=== PATIENT | female | born 1960 | race Caucasian/White ===

== ENCOUNTER 2017-06-12 16:50 | Inpatient (IN) | payer OTHER ==
[2017-06-12] MEDS ORDERED: SODIUM CHLORIDE 1,000 ML IV STA ×3 (17:05→21:13)
--- NOTE | 2017-06-12 17:06 | PDOC ---
Attending Attestation - Resident Resident Name: Tyree Kemp - ED Attending Attestation I have performed the following: I have examined & evaluated the patient, The case was reviewed & discussed with the resident, I agree w/resident's findings & plan, Exceptions are as noted - Physicial Exam PE: GENERAL: Awake, alert, and oriented to person and place. Agitated, delirious. HEAD: No signs of trauma EYES: PERRLA, EOMI, sclera anicteric, conjunctiva clear ENT: Auricles normal inspection, hearing grossly normal, nares patent, oropharynx clear without exudates. Dry mucosa with dried blood around the mouth. NECK: Normal ROM, supple, no lymphadenopathy, JVD, or masses LUNGS: Breath sounds equal, clear to auscultation bilaterally. No wheezes, and no crackles HEART: Regular rate and rhythm, normal S1 and S2, no murmurs, rubs or gallops ABDOMEN: Soft, nontender, normoactive bowel sounds. No guarding, no rebound. No masses EXTREMITIES: Normal range of motion, no edema. No clubbing or cyanosis. No cords, erythema, or tenderness NEUROLOGICAL: Cranial nerves II through XII grossly intact. Normal speech. Moving all extremities. SKIN: Warm, Dry, normal turgor, no rashes or lesions noted. - Medical Decision Making Patient arrives confused, speaking full sentences but not answering questions. On multiple occasions she attempted to interfere with treatment (likely due to delirium), removing O2 mask, monitor and pulse oximeter. Unable to continuously obtain vital signs. At this point, decision was made to intubate for airway protection as well as for her critically ill state. Labs subsequently showed UTI , leukocytosis, acute renal failure. Treating with aggressive hydration, packed cells (for UGIB, visualized on arrival in ED), abx. Will dispo to ICU. <Tara Rodriguez - Last Filed: 06/12/17 19:12> - HPI HPI: 06/12/17 19:51 The patient is a 56 year old female, with a significant past medical history of hypertension, who presents to the emergency department with changes in mental status and lethargy for several days. As per brother, the he has noted the patient has been increasingly lethargic for several days. Today, the brother tried initiating a conversation with the patient, but he reports she was not making any sense and incoherent. Brother reports suggesting the patient get dressed so that he could bring her to the hospital, but patient went to bed. At the time, EMS was activated. When EMS arrived on scene patient was found to be hypotensive(80/50, with HR120) with dried blood surrounding her mouth. Patient is unable to give full history due to clinical condition. Allergies: NKDA Past Surgical History: None reported Social History: Current everyday smoker. No ETOH or recreational drug use. 06/12/17 19:52 - Critical Care Time Total Critical Care Time: 45 Critical Care Statement: The care of this patient involved high complexity decision making to prevent further life threatening deterioration of the patient 's condition and/or to evaluate & treat vital organ system(s) failure or risk of failure. - Medical Decision Making 06/12/17 19:52 Documentation prepared by Efra Kirk, acting as medical biller for Tara Rodriguez MD. <Efra Kirk - Last Filed: 06/12/17 20:03>
[2017-06-12] MEDS ORDERED: ONDANSETRON 4 MG/2 ML VIAL IVPUSH ONE (17:19)
[2017-06-12] MEDS ORDERED: PANTOPRAZOLE SODIUM 40 MG VIAL IVPUSH ONE (17:19)
--- NOTE | 2017-06-12 17:23 | PDOC ---
History of Present Illness - General History Source: Patient, Family Exam Limitations: Clinical Condition - History of Present Illness Initial Comments: 06/12/17 17:40 56F with pmh of HTN presents with hypotension and altered mental status brought by ambulance. Vitals by EMS were 80/50m hr 120. Life partner states that the patient was feeling sick, perhaps more lethargic since but couldn't provide any more information. Patient arrived pale with black blood crusted around the mouth with difficulty talking looking agitated. No reports of the patient ever vomiting. No more history available. 06/12/17 18:51 <Tyree Kemp - Last Filed: 06/12/17 23:45> <Tara Rodriguez - Last Filed: 06/16/17 11:46> - General Stated Complaint: SEPSIS Time Seen by Provider: 06/12/17 16:57 Past History <Tyere Kemp - Last Filed: 06/12/17 23:45> <Tara Rodriguez - Last Filed: 06/16/17 11:46> - Past Medical History Allergies/Adverse Reactions: Allergies Allergy/AdvReac Type Severity Reaction Status Date / Time No Known Allergies Allergy Verified 06/12/17 18:35 Home Medications: Ambulatory Orders Acetazolamide [Diamox -] 250 mg PO BID 06/15/17 Lisinopril/Hydrochlorothiazide [Lisinopril-Hctz 20-25 mg Tab] 20 - 25 mg PO TID 06/15/17 Review of Systems - Review of Systems Able to Perform ROS?: No <Tyree Kemp - Last Filed: 06/12/17 23:45> *Physical Exam - Physical Exam General Appearance: Yes: Severe Distress, Thin HEENT: positive: Other (dark, black blood in nares and mouth) Respiratory/Chest: positive: Respiratory Distress, Rapid RR. negative: Chest Tender Cardiovascular: positive: Regular Rhythm, Tachycardia Gastrointestinal/Abdominal: positive: Soft <Tyree Kemp - Last Filed: 06/12/17 23:45> - Vital Signs Last Vital Signs Temp Pulse Resp BP Pulse Ox 106 H 10 L 101/55 100 06/12/17 19:20 06/12/17 19:20 06/12/17 19:20 06/12/17 19:20 <Tara Rodriguez - Last Filed: 06/16/17 11:46> Procedures - Intubation Time of Intubation: 18:30 Intubation Method: orotracheal Blade used: Mac (4) Tube Size (Fr): 7.0 Medications: Etomidate, Succinylcholine Tube position @ lip (cm): 22 Tube position confirmed by: Direct visualization, CO2 detector, Chest x-ray, Breath sounds Breath Sounds after Intubation: equal Intubation Complications: oral-unsuccessful attempt Post Intubation Xray: Yes <Tara Rodriguez - Last Filed: 06/16/17 11:46> ED Treatment Course - LABORATORY CBC & Chemistry Diagram: 06/12/17 17:37 06/12/17 17:30 <Tyree Kemp - Last Filed: 06/12/17 23:45> - LABORATORY CBC & Chemistry Diagram: 06/16/17 07:45 06/16/17 07:45 - ADDITIONAL ORDERS Additional order review: Laboratory Results 06/12/17 06/12/17 06/12/17 20:24 17:40 17:30 PT with INR INR PTT (Actin FS) Anticoagulation Therapy No Result Required. Puncture Site No Result Required. ABG pH 6.97 L* ABG pCO2 at Pt Temp 20.0 L ABG pO2 at Pt Temp 157.0 H* ABG HCO3 4.4 L* ABG O2 Sat (Measured) 98.2 ABG O2 Content 13.5 L ABG Base Excess -26.1 L* Francois Test No Result Required. VBG pH POC VBG pCO2 POC VBG pO2 Mixed VBG HCO3 O2 Delivery Device No Result Required. Oxygen Flow Rate No Result Required. Vent Mode No Result Required. Vent Rate No Result Required. Mechanical Rate No Result Required. Pressure Support Vent No Result Required. Sodium Potassium Chloride Carbon Dioxide Anion Gap BUN Creatinine Creat Clearance w eGFR Random Glucose Lactic Acid Calcium Total Bilirubin AST ALT Alkaline Phosphatase Creatine Kinase Creatine Kinase Index CK-MB (CK-2) Troponin I Total Protein Albumin Urine Color Urine Appearance Urine pH Ur Specific [place] Urine Protein Urine Glucose (UA) Urine Ketones Urine Blood Urine Nitrite Urine Bilirubin Urine Urobilinogen Ur Leukocyte Esterase Urine WBC (Auto) Urine RBC (Auto) Ur Epithelial Cells Urine Bacteria Hyaline Casts Urine Mucus Urine Yeast Opiates Screen Negative Methadone Screen Negative Barbiturate Screen Negative Phencyclidine Screen Negative Ur Amphetamines Screen Negative MDMA (Ecstasy) Screen Negative Benzodiazepines Screen Negative Cocaine Screen Negative U Marijuana (THC) Screen Negative Blood Type O POSITIVE Antibody Screen Crossmatch 06/12/17 06/12/17 06/12/17 17:30 17:30 17:30 PT with INR INR PTT (Actin FS) Anticoagulation Therapy Puncture Site ABG pH ABG pCO2 at Pt Temp ABG pO2 at Pt Temp ABG HCO3 ABG O2 Sat (Measured) ABG O2 Content ABG Base Excess Francois Test VBG pH 7.02 L* POC VBG pCO2 17.0 L* POC VBG pO2 82.6 H Mixed VBG HCO3 4.2 L* O2 Delivery Device Oxygen Flow Rate Vent Mode Vent Rate Mechanical Rate Pressure Support Vent Sodium Potassium Chloride Carbon Dioxide Anion Gap BUN Creatinine Creat Clearance w eGFR Random Glucose Lactic Acid 1.3 Calcium Total Bilirubin AST ALT Alkaline Phosphatase Creatine Kinase Cancelled Creatine Kinase Index CK-MB (CK-2) Troponin I Cancelled Total Protein Albumin Urine Color Urine Appearance Urine pH Ur Specific [place] Urine Protein Urine Glucose (UA) Urine Ketones Urine Blood Urine Nitrite Urine Bilirubin Urine Urobilinogen Ur Leukocyte Esterase Urine WBC (Auto) Urine RBC (Auto) Ur Epithelial Cells Urine Bacteria Hyaline Casts Urine Mucus Urine Yeast Opiates Screen Methadone Screen Barbiturate Screen Phencyclidine Screen Ur Amphetamines Screen MDMA (Ecstasy) Screen Benzodiazepines Screen Cocaine Screen U Marijuana (THC) Screen Blood Type Antibody Screen Crossmatch 06/12/17 06/12/17 06/12/17 17:30 17:30 17:30 PT with INR 13.80 H INR 1.22 H PTT (Actin FS) 30.2 Anticoagulation Therapy Puncture Site ABG pH ABG pCO2 at Pt Temp ABG pO2 at Pt Temp ABG HCO3 ABG O2 Sat (Measured) ABG O2 Content ABG Base Excess Francois Test VBG pH POC VBG pCO2 POC VBG pO2 Mixed VBG HCO3 O2 Delivery Device Oxygen Flow Rate Vent Mode Vent Rate Mechanical Rate Pressure Support Vent Sodium 154 H Potassium 4.6 Chloride 124 H Carbon Dioxide 4 L Anion Gap 26 H BUN 227 H* Creatinine 13.2 H* Creat Clearance w eGFR 2.93 Random Glucose 151 H Lactic Acid Calcium 8.5 Total Bilirubin 0.2 AST 9 L ALT 11 L Alkaline Phosphatase 104 Creatine Kinase 263 H Creatine Kinase Index 0.7 CK-MB (CK-2) 1.881 Troponin I < 0.02 Total Protein 6.4 Albumin 3.4 Urine Color Holly Urine Appearance Cloudy Urine pH 5.0 Ur Specific [place] 1.020 Urine Protein 3+ H Urine Glucose (UA) 1+ H Urine Ketones Trace H Urine Blood 1+ H Urine Nitrite Negative Urine Bilirubin 2.0 Urine Urobilinogen Negative Ur Leukocyte Esterase 1+ H Urine WBC (Auto) 46 Urine RBC (Auto) 22 Ur Epithelial Cells Few Urine Bacteria Rare Hyaline Casts 17 Urine Mucus Rare Urine Yeast Many Opiates Screen Methadone Screen Barbiturate Screen Phencyclidine Screen Ur Amphetamines Screen MDMA (Ecstasy) Screen Benzodiazepines Screen Cocaine Screen U Marijuana (THC) Screen Blood Type Antibody Screen Crossmatch 06/12/17 16:58 PT with INR INR PTT (Actin FS) Anticoagulation Therapy Puncture Site ABG pH ABG pCO2 at Pt Temp ABG pO2 at Pt Temp ABG HCO3 ABG O2 Sat (Measured) ABG O2 Content ABG Base Excess Francois Test VBG pH POC VBG pCO2 POC VBG pO2 Mixed VBG HCO3 O2 Delivery Device Oxygen Flow Rate Vent Mode Vent Rate Mechanical Rate Pressure Support Vent Sodium Potassium Chloride Carbon Dioxide Anion Gap BUN Creatinine Creat Clearance w eGFR Random Glucose Lactic Acid Calcium Total Bilirubin AST ALT Alkaline Phosphatase Creatine Kinase Creatine Kinase Index CK-MB (CK-2) Troponin I Total Protein Albumin Urine Color Urine Appearance Urine pH Ur Specific [place] Urine Protein Urine Glucose (UA) Urine Ketones Urine Blood Urine Nitrite Urine Bilirubin Urine Urobilinogen Ur Leukocyte Esterase Urine WBC (Auto) Urine RBC (Auto) Ur Epithelial Cells Urine Bacteria Hyaline Casts Urine Mucus Urine Yeast Opiates Screen Methadone Screen Barbiturate Screen Phencyclidine Screen Ur Amphetamines Screen MDMA (Ecstasy) Screen Benzodiazepines Screen Cocaine Screen U Marijuana (THC) Screen Blood Type O POSITIVE Antibody Screen Negative Crossmatch See Detail 06/12/17 17:37 RBC 3.64 MCV 89.5 MCHC 32.2 RDW 15.1 MPV 11.8 H Neutrophils % 83.6 H Lymphocytes % 9.3 Monocytes % 6.4 Eosinophils % 0.0 Basophils % 0.7 - RADIOLOGY Radiology Studies Ordered: Category Date Time Status CHEST X-RAY PORTABLE* [RAD] Stat Radiology 06/12/17 19:46 Taken - Medications Given in the ED: ED Medications Discontinued Medications Generic Name Dose Route Start Last Admin Trade Name Freq PRN Reason Stop Dose Admin Etomidate 20 mg 06/12/17 18:38 06/12/17 18:00 Amidate - IVPUSH 06/12/17 18:39 20 mg NOW ONE Administration Fentanyl 100 mcg 06/12/17 18:11 06/12/17 18:15 Sublimaze Injection - IVPUSH 06/12/17 18:12 100 mcg ONCE ONE Administration Fentanyl 100 mcg 06/12/17 18:18 06/12/17 18:20 Sublimaze Injection - IVPUSH 06/12/17 18:19 100 mcg ONCE ONE Administration Fentanyl 100 mcg 06/12/17 18:38 06/12/17 19:10 Sublimaze Injection - IVPUSH 06/12/17 18:39 100 mcg ONCE ONE Administration Sodium Chloride 1,000 mls @ 1,000 mls/hr 06/12/17 17:05 06/12/17 18:50 Normal Saline - IV 06/12/17 18:04 1,000 mls/hr ASDIR STA Administration Sodium Chloride 1,000 mls @ 1,000 mls/hr 06/12/17 18:25 06/12/17 17:00 Normal Saline - IV 06/12/17 19:24 1,000 mls/hr ASDIR STA Administration Lorazepam 2 mg 06/12/17 18:38 06/12/17 18:20 Ativan Injection - IVPUSH 06/12/17 18:39 2 mg ONCE ONE Administration Pantoprazole Sodium 40 mg 06/12/17 17:19 06/12/17 18:00 Protonix Iv IVPUSH 06/12/17 17:20 40 mg ONCE ONE Administration <Tara Rodriguez - Last Filed: 06/16/17 11:46> Medical Decision Making - Critical Care Time Total Critical Care Time (minutes): 30 Critical Care Statement: The care of this patient involved high complexity decision making to prevent further life threatening deterioration of the patient 's condition and/or to evaluate & treat vital organ system(s) failure or risk of failure. - Medical Decision Making 06/12/17 19:17 56F with likely GI bleed presenting hypotensive saturating in the high 70's, agitated. The decision was made to intubated the patient who improving her sats even though a ventimask was placed. Ordered one unit of packed RBC's Patient to be admitted to ICU Waiting for ICU to call back. 06/12/17 21:06 Patient admitted to ICU under attending Dr. Schmitz, hospitalist. Ph 6.9 pushed sodium bicarb x2 increased rate to 22 <Tyree Kemp - Last Filed: 06/12/17 23:45> - Medical Decision Making Intubation note: Resident attempted with DL, difficulty visualizing the airway. At this time I took over, was able to visualize, but there was blood in the oropharynx and black discoloration of the entire oropharynx (consistent with material found on the mouth). Bougie was used for assistance, then first a 7.5 tube was passed over it, difficult to pass, changed to 7.0 ETT. Balloon was inflated and tube secured. <Tara Rodriguez - Last Filed: 06/16/17 11:46> *DC/Admit/Observation/Transfer - Discharge Dispostion Admit: Yes <Tyree Kemp - Last Filed: 06/12/17 23:45> - Discharge Dispostion Admit: Yes <Tara Rodriguez - Last Filed: 06/16/17 11:46> Diagnosis at time of Disposition: Renal failure Qualifiers: Renal failure chronicity: acute Acute renal failure type: unspecified Qualified Code(s): N17.9 - Acute kidney failure, unspecified GI bleed Qualifiers: GI bleed type/associated pathology: unspecified gastrointestinal hemorrhage type Qualified Code(s): K92.2 - Gastrointestinal hemorrhage, unspecified UTI (urinary tract infection) Qualifiers: Urinary tract infection type: site unspecified Hematuria presence: without hematuria Qualified Code(s): N39.0 - Urinary tract infection, site not specified Sepsis Qualifiers: Sepsis type: sepsis due to unspecified organism Qualified Code(s): A41.9 - Sepsis, unspecified organism - Discharge Dispostion Condition at time of disposition: Critical
[2017-06-12 17:42] LABS: VENOUS PH 7.02 (7.32-7.42)
[2017-06-12 17:43] LABS: VENOUS PO2 82.6 mmHg (28-48)
[2017-06-12 17:46] LABS: BASO % 0.7 % (0-2.0); HEMATOCRIT 32.6 % (32.4-45.2); HEMOGLOBIN 10.5 GM/dL (10.7-15.3); LYMPH % 9.3 % (8-40); MCH 28.8 pg (25.7-33.7); MCHC 32.2 g/dl (32.0-36.0); MEAN CELL VOLUME 89.5 fl (80-96); MEAN PLT VOLUME 11.8 fl (7.5-11.1); MONO % 6.4 % (3.8-10.2); NEUT % 83.6 % (42.8-82.8); PLATELET COUNT 192 K/MM3 (134-434); RBC 3.64 M/mm3 (3.60-5.2); RDW 15.1 % (11.6-15.6)
[2017-06-12 17:53] LABS: URINE APPEARANCE CLOUDY; URINE BLOOD 1+ (NEGATIVE); URINE COLOR AMBER; URINE GLUCOSE (UA) 1+ (NEGATIVE); URINE KETONE TRACE (NEGATIVE); URINE NITRITE NEGATIVE (NEGATIVE); URINE UROBILINOGEN NEGATIVE mg/dL (0.2-1.0)
[2017-06-12 17:57] LABS: URINE LEUK ESTERASE 1+ (NEGATIVE); URINE PROTEIN 3+ (NEGATIVE)
[2017-06-12 17:58] LABS: EPI CELLS FEW /HPF (FEW); URINE BACTERIA RARE /hpf (NONE SEEN); URINE HYALINE CAST 17 /lpf; URINE MUCUS RARE; YEAST MANY
[2017-06-12] MEDS ORDERED: RAPID SEQUENCE INTUBATION KIT NR ONE (17:58)
[2017-06-12 18:03] LABS: COCAINE, UR NEGATIVE ng/ml (CUTOFF=300); METHADONE, UR NEGATIVE ng/ml (CUTOFF=300); OPIATES, URI NEGATIVE ng/ml (CUTOFF=300); PHENCYCLIDINE,URINE NEGATIVE ng/ml (CUTOFF=25); URINE AMPHETAMINES NEGATIVE ng/ml (CUTOFF=500); URINE BARBITURATES NEGATIVE ng/ml (CUTOFF=200); URINE BENZODIAZEPINES NEGATIVE ng/ml (CUTOFF=200)
[2017-06-12] MEDS ORDERED: fentaNYL CITRATE 250 MCG/5 ML VIAL IVPUSH ONE (18:11)
[2017-06-12 18:20] LABS: ALBUMIN 3.4 g/dl (3.4-5.0); BILIRUBIN,TOTAL 0.2 mg/dL (0.2-1.0); CALCIUM 8.5 mg/dL (8.5-10.1); CHLORIDE 124 mmol/L (98-107); GLUCOSE,RANDOM 151 mg/dL (74-106); POTASSIUM 4.6 mmol/L (3.5-5.1); SGOT/AST 9 U/L (15-37); SGPT/ALT 11 U/L (12-78); SODIUM 154 mmol/L (136-145); TOT PROT 6.4 g/dl (6.4-8.2)
[2017-06-12 18:21] LABS: ALK PHOS 104 U/L (45-117)
[2017-06-12 18:24] LABS: INR 1.22 (0.82-1.09); PROTHROMBIN TIME (PATIENT) 13.8 SEC (9.98-11.88)
[2017-06-12 18:27] LABS: ACTIVATED PTT 30.2 SECONDS (26.9-34.4)
[2017-06-12] MEDS ORDERED: FENTANYL INJECTION 500 MCG in DEXTROSE 5%-WATER - 90 ML IVPB SCH ×2 (18:30→18:45)
[2017-06-12] MEDS ORDERED: ETOMIDATE 40 MG/20 ML VIAL IVPUSH ONE (18:38)
[2017-06-12] MEDS ORDERED: SUCCINYLCHOLINE CHLORIDE 200 MG/10 ML VIAL IVPUSH ONE (18:38)
[2017-06-12] MEDS ORDERED: PIPERACILLIN/TAZOB 3.375 GM 50 ML IVPB ONE (18:39)
[2017-06-12] MEDS ORDERED: VANCOMYCIN 1,000 MG in DEXTROSE 5%-WATER - 250 ML IVPB ONE (18:40)
[2017-06-12 18:41] LABS: ANION GAP 26 (8-16); CO2 4 mmol/L (21-32)
[2017-06-12] MEDS ORDERED: PANTOPRAZOLE SODIUM 40 MG VIAL ONE (18:42)
[2017-06-12 18:43] LABS: BLOOD UREA NITROGEN 227 mg/dL (7-18); CREATININE 13.2 mg/dL (0.55-1.02)
[2017-06-12 18:52] VITALS: BMI 32.3
[2017-06-12] MEDS: MIDAZOLAM 100 MG in SODIUM CHLORIDE 100 ML IVPB SCH (19:20)
[2017-06-12 20:38] LABS: ARTERIAL BLD GAS O2 SATURATION 98.2 % (90-98.9); ARTERIAL BLOOD GAS BASE EXCESS -26.1 meq/l (-2-2)
[2017-06-12 20:42] LABS: ARTERIAL BLOOD GAS pH 6.97 (7.35-7.45)
[2017-06-12] MEDS ORDERED: SODIUM BICARBONATE 4.2% 5 MEQ/10 ML DISP.SYRIN IVPUSH ONE ×2 (20:48→20:49)
[2017-06-12] MEDS ORDERED: SODIUM BICARBONATE 8.4% 50 MEQ/50 ML DISP.SYRIN IVPUSH ONE (20:50)
[2017-06-12] MEDS: PANTOPRAZOLE SODIUM 80 MG in SODIUM CHLORIDE 100 ML IVPB SCH (21:38)
--- NOTE | 2017-06-12 22:11 | HP ---
CHIEF COMPLAINT: AMS PCP: Dr. Petty in [place] Informant: Brother HISTORY OF PRESENT ILLNESS: 56yo female with PMH of HTN and current 1ppd smoker who was BIBEMS due to increasing AMS since Wednesday. Patient last spoke to family on Wednesday. At that time it was reported that she "sounded like crap", however no further elaboration as to how could be elicited during the interview. Pt is normally very active on facebook and texting, but had not replied to anyone's messages/ calls/texts since Wednesday. This unusual behaviour prompted the brother to check on the patient. On arrival to the home the patient was found to be altered and 911 was called. Patient lives with partner of 4 years; however, he is unknowledgeable about her medical history. 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 On arrival to the ED she was noted to have dried blood around her mouth. VS: afebrile, tachy to 120's, RR 20, BP 80s/40s. Patient was hypoxic with SpO2 in 70s and agitated. She was intubated successfully, and noted to have blood in her esophagus. Initial labs were notable for leukocytosis of 19, Hgb 10.5, Na 154, BUN/Cr 227/ 13, HCO3 4, AG 25 with nml Lactate and ABG pH 6.97. UA with pyuria and trace ketones. Patient was given 1U PRBC and protonix gtt for suspected UGIB. Received 3L of NS. Head, Abd/pelvis CT were done and pt was transferred to ICU for further management. PAST MEDICAL HISTORY: obtain collateral from PCP PAST SURGICAL HISTORY: unknown Social History: Smokinppd for "long time" Alcohol: yes Drugs: unknown Family History: non-contributory Allergies: NKDA HOME MEDICATIONS: unknown REVIEW OF SYSTEMS: unable to obtain PHYSICAL EXAMINATION Vital Signs - 24 hr 06/12/17 06/12/17 06/12/17 17:00 18:18 18:22 Pulse Rate 130 H Pulse Rate [ 121 H Apical] Respiratory 26 H 16 19 Rate Blood Pressure 128/114 Blood Pressure 96/58 [Right Arm] O2 Sat by Pulse 88 L 94 L Oximetry (%) 06/12/17 06/12/17 06/12/17 19:20 21:40 22:02 Pulse Rate 106 H Pulse Rate [ 106 H Apical] Respiratory 10 L 14 22 Rate Blood Pressure 101/55 Blood Pressure 119/65 [Right Arm] O2 Sat by Pulse 100 100 Oximetry (%) GENERAL: intubated, sedated EYES: sclera anicteric, conjunctiva clear NECK: no JVD LUNGS: mechanical breath sounds, no rales/wheezes appreciated HEART: rrr, normal s1/s2, no m/r/g ABDOMEN: soft, ntnd, normoactive BS LOWER EXTREMITIES: 2+ DP and PT pulses, wwp, no edema CBC, BMP 06/12/17 17:37 06/12/17 17:30 Hepatic Panel Total Bilirubin 0.2 mg/dL (0.2-1.0) 06/12/17 17:30 AST 9 U/L (15-37) L 06/12/17 17:30 ALT 11 U/L (12-78) L 06/12/17 17:30 Alkaline Phosphatase 104 U/L (45-117) 06/12/17 17:30 Albumin 3.4 g/dl (3.4-5.0) 06/12/17 17:30 ABG Results ABG pH 6.97 (7.35-7.45) L* 06/12/17 20:24 ABG pCO2 at Pt Temp 20.0 mmHg (35-45) L 06/12/17 20:24 ABG pO2 at Pt Temp 157.0 mmHg (80-100) H* 06/12/17 20:24 ABG HCO3 4.4 meq/L (22-26) L* 06/12/17 20:24 ABG O2 Sat (Measured) 98.2 % (90-98.9) 06/12/17 20:24 ABG O2 Content 13.5 % vol (15-22) L 06/12/17 20:24 ABG Base Excess -26.1 meq/l (-2-2) L* 06/12/17 20:[address] - no e/o intracranial hemorrhage or acute pathology CT A/P - (preliminary read) - kidneys without acute pathology, L 3.3cm adenoma Active Medications Chlorhexidine Gluconate (Hibiclens For Decolonization -) 1 applic TP HS JAVI Last Admin: 06/13/17 00:13 Dose: 1 applic Clotrimazole (Lotrimin 1% Cream -) 1 applic TP BID JAVI Last Admin: 06/13/17 01:29 Dose: 1 applic Midazolam HCl 100 mg/ Sodium (Chloride) 100 mls @ 1 mls/hr IVPB TITR JAVI; 1 MG/ HR PRN Reason: Protocol Last Titration: 06/12/17 21:39 Dose: 5 mg/hr, 5 mls/hr Fentanyl 500 mcg/ Sodium (Chloride) 100 mls @ 20 mls/hr IVPB TITR JAVI; 100 MCG/ HR PRN Reason: Protocol Last Admin: 06/13/17 06:52 Dose: 20 mls/hr CEFTRIAXONE 1 G/50 ML PREMIX (Ceftriaxone 1 Gm-D5w Bag) 50 mls @ 100 mls/hr IVPB DAILY JAVI Pantoprazole Sodium 160 mg/ (Dextrose) 290 mls @ 14.5 mls/hr IVPB Q20H JAVI Mupirocin (Bactroban Ointment (For Decolonization) -) 1 applic NS BID JAVI Stop: 06/17/17 21:59 Last Admin: 06/13/17 00:13 Dose: 1 applic ASSESSMENT/PLAN: 56yo woman with unknown medical history except for active smoking and HTN who BIBEMS for 3-4 days of AMS and found to have ARF with profound uremia and HAGMA of unclear etiology. #ARF of unclear etiology -Renal consult for emergent dialysis tonight due to uremic encephalopathy and HAGMA; planning for session tomorrow as well -f/u urine studies -ott, strict I&Os, daily weights #HAGMA -serum osm to calculate osmolar gap -continue bicarb gtt -salicylate, acetaminophen, ethylene glycol, methyl alcohol levels to r/o possible ingestion cause #AMS likely from uremic encephalopathy, Head CT negative, Utox neg -RPR, B12, EtOH #acute hypoxemic respiratory failure -vent settings per ICU team -repeat ABG #possible UGIB, s/p 1U PRBCs, suspect exacerbated by uremia -GI consult -PPI gtt for now -CBC Q6H #sepsis (tachycardia, hypotension, WBC 19) 2/2 UTI Received 1xdose Vanc/Zosyn -f/u urine and blood cultures -Ceftriaxone 1gm daily #3.3cm L adrenal adenoma - notify patient, unlikely to be functional, but reassess when patient stabilized #FEN: IVF / daily CMPs / NPO #PPX -DVT SCD's (A/C c/i) -GI - on PPI gtt #Dispo: ICU FULL code d/w Dr. Ainsley Buck MD PGY1 - Internal Medicine Visit type - Emergency Visit Emergency Visit: Yes ED Registration Date: 06/12/17 Care time: The patient presented to the Emergency Department on the above date and was hospitalized for further evaluation of their emergent condition. - New Patient This patient is new to me today: Yes Date on this admission: 06/13/17 - Critical Care Critical Care patient: Yes Total Critical Care Time (in minutes): 60 Critical Care Statement: The care of this patient involved high complexity decision making to prevent further life threatening deterioration of the patient 's condition and/or to evaluate & treat vital organ system(s) failure or risk of failure.
--- NOTE | 2017-06-12 22:20 | CONSULT ---
Consult - text type - Consultation Consultation Note: PULM/CCM Pt seen and examined in ICU CC: AMS, acute renal failure HPI: Briefly Ms Quinn is a 56 y/o woman with PMHX only notable for HTN who presents to ED today with AMS x 3-4days. Per her family and significant other pt has been increasingly lethargic and altered over last week. This morning she was so altered that family called 911. Pt was brought to ED without incident. In ED pt was afebrile, tachy to 120, RR 20, BP 80/40s. She had dried blood in her mouth. She was hypoxic with SPO2 in 70s, she was intubated without incident. Labs were notable for WBC 19, H/h 10/32, Na 154, BUN/Cr 13/227 with Hco3 of 4. Her pH was 6.9 on abg. AG was 26 but lactate was < 2, BGL was 150 w/ on trace ketones in urine. CK was only slightly elevated 260. Emmanuel was placed with small amount of UOP. UA was dirty with 46 wbc, 22 RBC, + LE. Pt appeared clinically dry, 2L on fluid given. Concern for UGIB prompted 1PRBC to be given and PPI gtt was started. CT head, A/P done, reads pending. There had been no reported LOC, Cxpn, SOB, falls, new medications, does not take metformin,, no reported high use of nsaids, no illicits. Started making urine with volume resuscitation. PHMX: HTN PSX Unk Family Hx: Unk Smoking History Smoking history Current every day smoker Aproximately how many 20 cigarettes per day Alcohol/Substance Use Hx Alcohol Use Yes No Home meds Active Medications Chlorhexidine Gluconate (Hibiclens For Decolonization -) 1 applic TP HS JAVI Pantoprazole Sodium 80 mg/ (Sodium Chloride) 100 mls @ 10 mls/hr IVPB Q10H JAVI PRN Reason: 8 MG/HR Last Admin: 06/12/17 21:38 Dose: 10 mls/hr Midazolam HCl 100 mg/ Sodium (Chloride) 100 mls @ 1 mls/hr IVPB TITR JAVI; 1 MG/ HR PRN Reason: Protocol Last Titration: 06/12/17 21:39 Dose: 5 mg/hr, 5 mls/hr Fentanyl 500 mcg/ Dextrose 100 mls @ 0 mls/hr IVPB TITR JAVI; 0 MCG/HR PRN Reason: Protocol Last Admin: 06/12/17 19:20 Dose: 10 mls/hr Sodium Bicarbonate 150 meq/ (Dextrose) 1,150 mls @ 125 mls/hr IV ONCE ONE Stop: 06/13/17 08:22 Mupirocin (Bactroban Ointment (For Decolonization) -) 1 applic NS BID JAVI Stop: 06/17/17 21:59 ABG Results ABG pH 6.97 (7.35-7.45) L* 06/12/17 20:24 ABG pCO2 at Pt Temp 20.0 mmHg (35-45) L 06/12/17 20:24 ABG pO2 at Pt Temp 157.0 mmHg (80-100) H* 06/12/17 20:24 ABG HCO3 4.4 meq/L (22-26) L* 06/12/17 20:24 ABG O2 Sat (Measured) 98.2 % (90-98.9) 06/12/17 20:24 ABG O2 Content 13.5 % vol (15-22) L 06/12/17 20:24 ABG Base Excess -26.1 meq/l (-2-2) L* 06/12/17 20:24 CBCD WBC 19.0 K/mm3 (4.0-10.0) H 06/12/17 17:37 RBC 3.64 M/mm3 (3.60-5.2) 06/12/17 17:37 Hgb 10.5 GM/dL (10.7-15.3) L 06/12/17 17:37 Hct 32.6 % (32.4-45.2) 06/12/17 17:37 MCV 89.5 fl (80-96) 06/12/17 17:37 MCHC 32.2 g/dl (32.0-36.0) 06/12/17 17:37 RDW 15.1 % (11.6-15.6) 06/12/17 17:37 Plt Count 192 K/MM3 (134-434) 06/12/17 17:37 MPV 11.8 fl (7.5-11.1) H 06/12/17 17:37 CMP Sodium 154 mmol/L (136-145) H 06/12/17 17:30 Potassium 4.6 mmol/L (3.5-5.1) 06/12/17 17:30 Chloride 124 mmol/L (98-107) H 06/12/17 17:30 Carbon Dioxide 4 mmol/L (21-32) L 06/12/17 17:30 Anion Gap 26 (8-16) H 06/12/17 17:30 BUN 227 mg/dL (7-18) H* 06/12/17 17:30 Creatinine 13.2 mg/dL (0.55-1.02) H* 06/12/17 17:30 Creat Clearance w eGFR 2.93 (>60) 06/12/17 17:30 Random Glucose 151 mg/dL (74-106) H 06/12/17 17:30 Calcium 8.5 mg/dL (8.5-10.1) 06/12/17 17:30 Total Bilirubin 0.2 mg/dL (0.2-1.0) 06/12/17 17:30 AST 9 U/L (15-37) L 06/12/17 17:30 ALT 11 U/L (12-78) L 06/12/17 17:30 Alkaline Phosphatase 104 U/L (45-117) 06/12/17 17:30 Total Protein 6.4 g/dl (6.4-8.2) 06/12/17 17:30 Albumin 3.4 g/dl (3.4-5.0) 06/12/17 17:30 CARDIAC ENZYMES Creatine Kinase 263 IU/L (26-192) H 06/12/17 17:30 Troponin I < 0.02 ng/ml (0.00-0.05) 06/12/17 17:30 Urine Test Results Urine Color Holly 06/12/17 17:30 Urine Appearance Cloudy 06/12/17 17:30 Urine pH 5.0 (5.0-8.0) 06/12/17 17:30 Ur Specific Morning Sun 1.020 (1.001-1.035) 06/12/17 17:30 Urine Protein 3+ (NEGATIVE) H 06/12/17 17:30 Urine Glucose (UA) 1+ (NEGATIVE) H 06/12/17 17:30 Urine Ketones Trace (NEGATIVE) H 06/12/17 17: Urine Blood 1+ (NEGATIVE) H 06/12/17 17:30 Urine Nitrite Negative (NEGATIVE) 06/12/17 17:30 Urine Bilirubin 2.0 (NEGATIVE) 06/12/17 17:30 Ur Leukocyte Esterase 1+ (NEGATIVE) H 06/12/17 17:30 Ur Epithelial Cells Few /HPF (FEW) 06/12/17 17:30 Urine Bacteria Rare /hpf (NONE SEEN) 06/12/17 17:30 Urine Mucus Rare 06/12/17 17:[address] head: pending read, no obvious bleed or large infarct to this viewer Chest Xray: no infiltrate PE: Gen: well nourished woman, intubated sedated HEENT: PERRL [id number], slightly injected sclera bilaterally PULM: clear anterior, no wheezes CV;tachy, no m/r/g appreciated ABD: soft, NT, ND, +S EXT: 2+ throughout, no edema, no clubbing Derm: no rash. Neuro: agitated, PUGA x 4 equally,+ myoclonus A/ 56 y/o woman without significant pmhx presented with AMS, acute renal failure c/b uremic encephalopathy and profound acidosis P/ -Renal consult: HD tonight, catheter placed, Nurse enroute -check serum osm, urine osm, salyicilate, tylenol, TSH, DEANDRE, DsDNA, complements -urine lytes - f/u CThead, AP reads -ceftriaxone should be fine for UTI, start tomorrow (received Vanco/PT) -serial CBC, cont PPI gtt, if no further evidence of blood loss would transition to daily PPI -cont D5 1/2with 150meq Sodium Bicarb. -f/u cxls -cont vent support, no gradient on most recent ABG, do no suspect PE or acute lung injury. Wean to extubation -SCD, PPI Neo Peterson ACNP [id number] 35min CCT
[2017-06-12] MEDS ORDERED: SODIUM BICARBONATE 8.4% 50 MEQ/50 ML VIAL ONE (23:10)
[2017-06-12] MEDS ORDERED: DEXTROSE 5%-WATER - 1,000 ML with SODIUM BICARBONATE 8.4% - 150 MEQ IV ONE ×2 (23:11→23:17)
--- NOTE | 2017-06-12 23:20 | CON.NEP ---
Consult Consult Specialty:: Nephrology Referred by:: Dr. Buck Reason for Consultation:: Acute Renal Failure - History of Present Illness Chief Complaint: AMS History of Present Illness: This is a 56 year old woman with PMhx of Hypertension who presented from home with AMS. Pt was found lethargic by her brother who called EMS. He reports that she has been feeling unwell for about 3-4 days. They are unsure of any hx of CKD. No hx of NSIADs. NO hx of ingestions. No hx of kidney stones. No hx of contrast exposure. - History Source History Provided By: Patient Limitations to Obtaining History: No Limitations - Alcohol/Substance Use Hx Alcohol Use: Yes - Smoking History Smoking history: Current every day smoker Aproximately how many cigarettes per day: 20 Home Medications - Allergies Allergies/Adverse Reactions: Allergies Allergy/AdvReac Type Severity Reaction Status Date / Time No Known Allergies Allergy Verified 06/12/17 18:35 Family Disease History - Family Disease History Family History: Unable to Obtain Review of Systems Unable to obtain ROS, reason: clinical status Nephrology Consult - Height Height: 5 ft 6 in - Weight Weight: 90.718 kg - BMI Body Mass Index (BMI): 32.3 - Lab Results CBC,BMP: CBC, BMP 06/12/17 17:37 06/12/17 17:30 Anion Gap: Anion Gap Anion Gap 26 (8-16) H 06/12/17 17:30 - Imaging Chest X-ray: Report Reviewed Cat Scan: Report Reviewed - Physical Examination Vital Signs: Vital Signs Temperature Pulse Rate 106 H 06/12/17 21:40 Respiratory Rate 22 06/12/17 22:02 Blood Pressure 119/65 06/12/17 21:40 O2 Sat by Pulse Oximetry (%) 100 06/12/17 21:40 Constitutional: Yes: No Distress, Other (intubated on vent) HENT: Yes: Atraumatic Neck: Yes: Supple Cardiovascular: Yes: Regular Rate and Rhythm. No: Murmur, Rub Respiratory: Yes: Regular, Diminished. No: Rales, Rhonchi Gastrointestinal: Yes: Normal Bowel Sounds, Soft Renal/: Yes: Emmanuel Present. No: Anuria, Bladder Distention Edema: No Neurological: Yes: Unresponsive. No: Alert, Oriented Assessment/Plan 56 year old woman with PMhx of Hypertension who presented from home with AMS and found to have renal failure and metabolic acidosis. #Acute Renal Failure etiology uncertain at this time pt warrants emergent dialysis given overt uremia and metabolic acidosis will plan for 2.5 hour session today followed by another in 12-16 hours Check Urine studies CT of the kidneys show no obstruction dose all meds for CrCl less then 10 check DEANDRE, ANCA, Hepatitis, CH50 in AM #Anion gap metabolic acidosis likely from renal failure Lactic acid is normal check serum OSM to determine osmolar gap check [place] levels and acetaminophen levels. continue bicarb gtt at 125cc per hour with goal ph > 7.2 #Hypernatremia will use high Na bath with HD to avoid too rapid a correction #Leukocytosis/Sepsis abx as per primary team Thank you Will follow Bill Oliveros DO
[2017-06-13] MEDS: MUPIROCIN 2% TOPICAL OINTMENT FOR DECOLONIZATION NS SCH ×3 (00:13→22:02)
[2017-06-13] MEDS: CHLORHEXIDINE GLUCONATE 4% CLEANSER FOR DECOLONIZATION TP SCH ×2 (00:13→22:02)
[2017-06-13 00:18] LABS: ALLENS TEST POSITIVE
[2017-06-13 00:20] LABS: ARTERIAL BLOOD GAS PCO2 17.1 mmHg (35-45); ARTERIAL BLOOD GAS pH 7.19 (7.35-7.45)
[2017-06-13 00:21] LABS: ARTERIAL BLD GAS O2 SATURATION 99.8 % (90-98.9); ARTERIAL BLOOD GAS BASE EXCESS -20.6 meq/l (-2-2)
[2017-06-13 00:27] LABS: HEMATOCRIT 30.2 % (32.4-45.2); MCH 29.1 pg (25.7-33.7); MCHC 33.1 g/dl (32.0-36.0); MEAN CELL VOLUME 87.9 fl (80-96); MEAN PLT VOLUME 12.2 fl (7.5-11.1); PLATELET COUNT 144 K/MM3 (134-434); RBC 3.43 M/mm3 (3.60-5.2); RDW 14.4 % (11.6-15.6); WHITE BLOOD COUNT 19.4 K/mm3 (4.0-10.0)
--- NOTE | 2017-06-13 00:34 | PROC ---
Central Line Insertion Indication: Other (Hemodialysis) Risks and Benefits Explained: Yes Consent on Chart: Yes Central Line: Dialysis Cath, Tri Lumen Anesthesia: 1% Lidocaine Sterile Technique: Yes Ultrasound Guided Assistance: Yes Position: Right Internal Jugular Post Insertion: Yes: Bilateral Breath Sounds, Chest X-Ray Ordered Sterile Dressing Applied: Yes (With Biopatch)
[2017-06-13 00:51] LABS: ANION GAP 22 (8-16); CALCIUM 7.8 mg/dL (8.5-10.1); CHLORIDE 129 mmol/L (98-107); CO2 7 mmol/L (21-32); GLUCOSE,RANDOM 131 mg/dL (74-106); POTASSIUM 3.7 mmol/L (3.5-5.1); SODIUM 158 mmol/L (136-145)
[2017-06-13 00:52] LABS: OSMOLALITY,URINE 409 mosm/kg (300-900)
[2017-06-13 00:59] LABS: BLOOD UREA NITROGEN 205 mg/dL (7-18)
[2017-06-13 01:00] LABS: CREATININE 10.1 mg/dL (0.55-1.02)
[2017-06-13] MEDS ORDERED: fentaNYL CITRATE 250 MCG/5 ML VIAL ONE ×2 (01:09→06:44)
[2017-06-13] MEDS ORDERED: FENTANYL INJECTION 500 MCG in SODIUM CHLORIDE 90 ML IVPB SCH (01:15)
--- NOTE | 2017-06-13 01:25 | PN ---
Teaching Attending Note Name of Resident: Dana Buck ATTENDING PHYSICIAN STATEMENT I saw and evaluated the patient. Chart, data, imaging reviewed . I reviewed the resident's note and discussed the case with the resident. I agree with the resident's findings and plan as documented. SUBJECTIVE: 56 year old woman with PMhx of Hypertension who presented from home with AMS, found to be lethargic by her brother who called EMS. Family members denied any significant NSAID use, known toxin ingestions, underlying renal disease. Patient was previously at her baseline state of health. She was found to have altered mental status and respiratory distress with desaturation upon arrival to ER and was intubated upon arrival. Head CT wnl. Found to have 3.3 cm mass on left adrenal gland suspected to be an adenoma. Nephrology second chef was contacted and physician came to hospital. OBJECTIVE: Last Vital Signs Temp Pulse Resp BP Pulse Ox 98.7 F 103 H 24 123/64 100 06/13/17 00:00 06/13/17 00:00 06/13/17 00:07 06/13/17 00:00 06/12/17 23:00 general- intubated, sedated, unresponsive heent -at, nc sclera nonicteric and no injection seen, ET tube neck -no JVD or neck masses cv s1+s2+ RRR chest CTA b/l abdomen -soft, nt, no masses palpated skin- no rashes seen msk- no joint swellign noted Abnormal Lab Results 06/12/17 06/12/17 06/12/17 16:58 17:30 17:30 WBC RBC Hgb Hct MPV Neutrophils % PT with INR 13.80 H INR 1.22 H ABG pH ABG pCO2 at Pt Temp ABG pO2 at Pt Temp ABG HCO3 ABG O2 Sat (Measured) ABG O2 Content ABG Base Excess VBG pH POC VBG pCO2 POC VBG pO2 Mixed VBG HCO3 Sodium 154 H Chloride 124 H Carbon Dioxide 4 L Anion Gap 26 H BUN 227 H* Creatinine 13.2 H* Random Glucose 151 H Serum Osmolality Calcium AST 9 L ALT 11 L Creatine Kinase 263 H Vitamin B12 Urine Protein Urine Glucose (UA) Urine Ketones Urine Blood Ur Leukocyte Esterase U Random Total Protein Crossmatch See Detail 06/12/17 06/12/17 06/12/17 17:30 17:30 17:37 WBC 19.0 H RBC Hgb 10.5 L Hct MPV 11.8 H Neutrophils % 83.6 H PT with INR INR ABG pH ABG pCO2 at Pt Temp ABG pO2 at Pt Temp ABG HCO3 ABG O2 Sat (Measured) ABG O2 Content ABG Base Excess VBG pH 7.02 L* POC VBG pCO2 17.0 L* POC VBG pO2 82.6 H Mixed VBG HCO3 4.2 L* Sodium Chloride Carbon Dioxide Anion Gap BUN Creatinine Random Glucose Serum Osmolality Calcium AST ALT Creatine Kinase Vitamin B12 Urine Protein 3+ H Urine Glucose (UA) 1+ H Urine Ketones Trace H Urine Blood 1+ H Ur Leukocyte Esterase 1+ H U Random Total Protein Crossmatch 06/12/17 06/13/17 06/13/17 20:24 00:01 00:01 WBC RBC Hgb Hct MPV Neutrophils % PT with INR INR ABG pH 6.97 L* 7.19 L* D ABG pCO2 at Pt Temp 20.0 L 17.1 L* ABG pO2 at Pt Temp 157.0 H* 469.0 H* ABG HCO3 4.4 L* 6.3 L* ABG O2 Sat (Measured) 99.8 H* ABG O2 Content 13.5 L ABG Base Excess -26.1 L* -20.6 L* VBG pH POC VBG pCO2 POC VBG pO2 Mixed VBG HCO3 Sodium Chloride Carbon Dioxide Anion Gap BUN Creatinine Random Glucose Serum Osmolality Calcium AST ALT Creatine Kinase Vitamin B12 Urine Protein Urine Glucose (UA) Urine Ketones Urine Blood Ur Leukocyte Esterase U Random Total Protein 143 H Crossmatch 06/13/17 06/13/17 06/13/17 00:01 00:01 00:01 WBC 19.4 H RBC 3.43 L Hgb 10.0 L Hct 30.2 L MPV 12.2 H Neutrophils % PT with INR INR ABG pH ABG pCO2 at Pt Temp ABG pO2 at Pt Temp ABG HCO3 ABG O2 Sat (Measured) ABG O2 Content ABG Base Excess VBG pH POC VBG pCO2 POC VBG pO2 Mixed VBG HCO3 Sodium Chloride Carbon Dioxide Anion Gap BUN Creatinine Random Glucose Serum Osmolality 396 H Calcium AST ALT Creatine Kinase Vitamin B12 1198 H Urine Protein Urine Glucose (UA) Urine Ketones Urine Blood Ur Leukocyte Esterase U Random Total Protein Crossmatch 06/13/17 00:01 WBC RBC Hgb Hct MPV Neutrophils % PT with INR INR ABG pH ABG pCO2 at Pt Temp ABG pO2 at Pt Temp ABG HCO3 ABG O2 Sat (Measured) ABG O2 Content ABG Base Excess VBG pH POC VBG pCO2 POC VBG pO2 Mixed VBG HCO3 Sodium 158 H Chloride 129 H Carbon Dioxide 7 L D Anion Gap 22 H BUN 205 H* Creatinine 10.1 H* Random Glucose 131 H Serum Osmolality Calcium 7.8 L AST ALT Creatine Kinase Vitamin B12 Urine Protein Urine Glucose (UA) Urine Ketones Urine Blood Ur Leukocyte Esterase U Random Total Protein Crossmatch CT of head- no acute bleeds, infarcts, or lesions CT of abdomen/pelvis -left adrenal adenoma 3.3 cm EKG - nsr ASSESSMENT AND PLAN: #Acute renal failure - uncertain etiology, nonobstructing renal stones seen on CT of abdomen/pelvis, no Hx of NSAID use -ott catheter -renal consult for stat HD as patient with severe metabolic acidosis , uremic encephalopathy -I/O -daily weights -avoid nephrotoxic meds -serum osm, urine osm -urine lytes, cr #Acute hypoxemic respiratory failure - intubated, on mechanical ventilation -continue mechanical ventilation -repeat ABG, adjust vent parameters accordingly #AMS- likely 2/2 uremia, head CT is wnl, utox negative -RPR -vit B12 -etoh level #Possible sepsis - hypotension, leukocytosis, ams. Leukocytosis may be reactive as well. -s/p zosyn, vanco in ER -urine culture -blood culture #Severe acid/base disturbance with HAGMA- likely related to acute renal failure however cannot r/o other insults. Ph on ABG 6.9 s/p 2 bicarb amp pushes -Renal second chef contacted for urgent HD -bicarb drip -calculate osmolar gap once serum osm obtained #Possible GI bleed- may be related to uremia resulting in coagulopathy -trend H,H -avoid anticoagulation -avoid antiplatelets -protonix drip -GI consult for possible EGD #3.3cm left adrenal adenoma -aldosterone, renin -24hr urine cortisol -random cortisol level #DVT ppx -SCDs
[2017-06-13] MEDS: CLOTRIMAZOLE 1% CREAM 15 GM TUBE TP SCH ×3 (01:29→22:04)
[2017-06-13] MEDS: FENTANYL INJECTION 500 MCG in SODIUM CHLORIDE 90 ML IVPB SCH ×2 (01:30→06:52)
[2017-06-13] MEDS: PANTOPRAZOLE SODIUM 80 MG in SODIUM CHLORIDE 100 ML IVPB SCH (06:07)
--- NOTE | 2017-06-13 07:32 | PN ---
Progress Note (short form) - Note Progress Note: Renal follow up for ZANE/Emergent dialysis Pt seen and examined in the ICU on Vent, sedated s/p dialysis last night on bicarb gtt making urine BP stable no vasopressers Vital Signs Temperature 100.2 F H 06/13/17 06:00 Pulse Rate 89 06/13/17 06:00 Respiratory Rate 23 06/13/17 07:13 Blood Pressure 102/63 06/13/17 06:00 O2 Sat by Pulse Oximetry (%) 100 06/12/17 23:00 Intake & Output 06/10/17 06/11/17 06/12/17 06/13/17 23:59 23:59 23:59 23:59 Intake Total 1108 Output Total 100 850 Balance -100 258 Weight 90.718 kg 77.1 kg NAD on vent Neck supple Right IJ shiley RRR CTA soft NT/ND No LE edema CBC, BMP 06/13/17 00:01 06/13/17 00:01 Current Medications Chlorhexidine Gluconate (Hibiclens For Decolonization -) 1 applic TP HS JAVI Last Admin: 06/13/17 00:13 Dose: 1 applic Clotrimazole (Lotrimin 1% Cream -) 1 applic TP BID JAVI Last Admin: 06/13/17 01:29 Dose: 1 applic Pantoprazole Sodium 80 mg/ (Sodium Chloride) 100 mls @ 10 mls/hr IVPB Q10H JAVI PRN Reason: 8 MG/HR Last Admin: 06/13/17 06:07 Dose: 10 mls/hr Midazolam HCl 100 mg/ Sodium (Chloride) 100 mls @ 1 mls/hr IVPB TITR JAVI; 1 MG/ HR PRN Reason: Protocol Last Titration: 06/12/17 21:39 Dose: 5 mg/hr, 5 mls/hr Sodium Bicarbonate 150 meq/ (Dextrose) 1,150 mls @ 125 mls/hr IV ONCE ONE Stop: 06/13/17 08:22 Last Admin: 06/13/17 00:14 Dose: 125 mls/hr Fentanyl 500 mcg/ Sodium (Chloride) 100 mls @ 20 mls/hr IVPB TITR JAVI; 100 MCG/ HR PRN Reason: Protocol Last Admin: 06/13/17 06:52 Dose: 20 mls/hr CEFTRIAXONE 1 G/50 ML PREMIX (Ceftriaxone 1 Gm-D5w Bag) 50 mls @ 100 mls/hr IVPB DAILY [facility] Mupirocin (Bactroban Ointment (For Decolonization) -) 1 applic NS BID JAVI Stop: 06/17/17 21:59 Last Admin: 06/13/17 00:13 Dose: 1 applic 56 year old woman with PMhx of Hypertension who presented from home with AMS and found to have renal failure and metabolic acidosis. #Acute Renal Failure with encephalopathy and severe metabolic acidosis etiology is uncertain at this time No obstruction seen on CT no serum osmolar gap, methanol and ethylene glycol levels pending acetaminophen levels and salicylate levels WNL Urine studies showed FeNa of 1.6% - indeterminate and subnephrotic proteinuira Pt is non-oliguic at the present time will plan for second session of dialysis today later this afternoon continue bicarb gtt as serum bicarb is still very low check ABG this am oral free water as tolerated continue empiric abx as per ID ICU care keep MAP > 65 serologic work up sent this am Thank you Will follow Bill Oliveros DO
[2017-06-13] MEDS ORDERED: PANTOPRAZOLE SODIUM 160 MG in DEXTROSE 5%-WATER - 290 ML IVPB SCH ×2 (08:15→16:00)
[2017-06-13 09:11] LABS: HEMATOCRIT 27.4 % (32.4-45.2); HEMOGLOBIN 9.3 GM/dL (10.7-15.3); MCH 28.3 pg (25.7-33.7); MCHC 33.8 g/dl (32.0-36.0); MEAN CELL VOLUME 83.7 fl (80-96); MEAN PLT VOLUME 11.8 fl (7.5-11.1); PLATELET COUNT 133 K/MM3 (134-434); RBC 3.28 M/mm3 (3.60-5.2); RDW 14.1 % (11.6-15.6); WHITE BLOOD COUNT 12.6 K/mm3 (4.0-10.0)
[2017-06-13 09:31] LABS: INR 1.39 (0.82-1.09); PROTHROMBIN TIME (PATIENT) 15.7 SEC (9.98-11.88)
--- NOTE | 2017-06-13 09:49 | PN ---
Progress Note (short form) - Note Progress Note: PULMONARY/CCM Pt seen and examined in the ICU. Remains intubated, sedated. Emergently dialyzed overnight. Last Vital Signs Temp Pulse Resp BP Pulse Ox 100.2 F H 84 21 99/61 100 06/13/17 06:00 06/13/17 08:00 06/13/17 08:00 06/13/17 08:00 06/12/17 23:00 Intake & Output 06/10/17 06/11/17 06/12/17 06/13/17 23:59 23:59 23:59 23:59 Intake Total 1108 Output Total 100 850 Balance -100 258 Weight 90.718 kg 77.1 kg Gen: intubated, sedated Heart: RRR Lung: decreased breath sounds at the bases Abd: soft, nontender Ext: + edema CBC, BMP 06/13/17 07:50 CMP Sodium 158 mmol/L (136-145) H 06/13/17 00:01 Potassium 3.7 mmol/L (3.5-5.1) 06/13/17 00:01 Chloride 129 mmol/L (98-107) H 06/13/17 00:01 Carbon Dioxide 7 mmol/L (21-32) L D 06/13/17 00:01 Anion Gap 22 (8-16) H 06/13/17 00:01 BUN 205 mg/dL (7-18) H* 06/13/17 00:01 Creatinine 10.1 mg/dL (0.55-1.02) H* 06/13/17 00:01 Creat Clearance w eGFR 2.93 (>60) 06/12/17 17:30 POC Glucometer 142.66953 UNITS (80-120) 06/12/17 17:17 Random Glucose 131 mg/dL (74-106) H 06/13/17 00:01 Serum Osmolality 396 mosm/kg (278-305) H 06/13/17 00:01 Lactic Acid 0.5 mmol/L (0.0-2.0) 06/13/17 01:30 Calcium 7.8 mg/dL (8.5-10.1) L 06/13/17 00:01 Magnesium Cancelled 06/13/17 07:50 Total Bilirubin 0.2 mg/dL (0.2-1.0) 06/12/17 17:30 AST 9 U/L (15-37) L 06/12/17 17:30 ALT 11 U/L (12-78) L 06/12/17 17:30 Alkaline Phosphatase 104 U/L (45-117) 06/12/17 17:30 Creatine Kinase 263 IU/L (26-192) H 06/12/17 17:30 Creatine Kinase Index 0.7 % (0.0-5.0) 06/12/17 17:30 CK-MB (CK-2) 1.881 ng/mL (0.5-3.6) 06/12/17 17:30 Troponin I < 0.02 ng/ml (0.00-0.05) 06/12/17: Total Protein 6.4 g/dl (6.4-8.2) 06/12/17 17:30 Albumin 3.4 g/dl (3.4-5.0) 06/12/17 17:30 Vitamin B12 1198 pg/ml (180-914) H 06/13/17 00:01 TSH 0.14 uIU/ml (0.358-3.74) L 06/13/17 00:01 ABG Results ABG pH 7.19 (7.35-7.45) L* D 06/13/17 00:01 ABG pCO2 at Pt Temp 17.1 mmHg (35-45) L* 06/13/17 00:01 ABG pO2 at Pt Temp 469.0 mmHg (80-100) H* 06/13/17 00:01 ABG HCO3 6.3 meq/L (22-26) L* 06/13/17 00:01 ABG O2 Sat (Measured) 99.8 % (90-98.9) H* 06/13/17 00:01 ABG O2 Content 15.0 % vol (15-22) 06/13/17 00:01 ABG Base Excess -20.6 meq/l (-2-2) L* 06/13/17 00:01 CXR: no infiltrates Active Medications Chlorhexidine Gluconate (Hibiclens For Decolonization -) 1 applic TP HS JAVI Last Admin: 06/13/17 00:13 Dose: 1 applic Clotrimazole (Lotrimin 1% Cream -) 1 applic TP BID JAVI Last Admin: 06/13/17 01:29 Dose: 1 applic Midazolam HCl 100 mg/ Sodium (Chloride) 100 mls @ 1 mls/hr IVPB TITR JAVI; 1 MG/ HR PRN Reason: Protocol Last Titration: 06/12/17 21:39 Dose: 5 mg/hr, 5 mls/hr Fentanyl 500 mcg/ Sodium (Chloride) 100 mls @ 20 mls/hr IVPB TITR JAVI; 100 MCG/ HR PRN Reason: Protocol Last Admin: 06/13/17 06:52 Dose: 20 mls/hr CEFTRIAXONE 1 G/50 ML PREMIX (Ceftriaxone 1 Gm-D5w Bag) 50 mls @ 100 mls/hr IVPB DAILY JAIV Pantoprazole Sodium 160 mg/ (Dextrose) 290 mls @ 14.5 mls/hr IVPB Q20H JAVI Mupirocin (Bactroban Ointment (For Decolonization) -) 1 applic NS BID JAVI Stop: 06/17/17 21:59 Last Admin: 06/13/17 00:13 Dose: 1 applic A/P Acute Respiraotry Failure Acute Kidney Injury Uremic Encephalopathy Severe Metabolic Acidosis requiring emergent HD r/o UTI HTN - HD per renal - monitor urine output, creatinine - empiric antibiotics - f/u cultures - f/u urine studies - monitor ABG - lighten sedation and start spontaneous breathing trials when metabolic acidosis resolved - DVT/GI prophylaxis - continue ICU monitoring critical care time spent in reviewing chart, evaluating patient and formulating plan 35 min
[2017-06-13 09:53] LABS: ALBUMIN 2.7 g/dl (3.4-5.0); ANION GAP 11 (8-16); BILIRUBIN,TOTAL 0.5 mg/dL (0.2-1.0); BLOOD UREA NITROGEN 97 mg/dL (7-18); CALCIUM 7.4 mg/dL (8.5-10.1); CHLORIDE 116 mmol/L (98-107); CO2 26 mmol/L (21-32); CREATININE 3.8 mg/dL (0.55-1.02); GLUCOSE,RANDOM 133 mg/dL (74-106); MAGNESIUM 1.3 mg/dL (1.8-2.4); PHOSPHOROUS 2.6 mg/dL (2.5-4.9); SGOT/AST 15 U/L (15-37); SGPT/ALT 12 U/L (12-78); SODIUM 153 mmol/L (136-145); TOT PROT 5.2 g/dl (6.4-8.2)
[2017-06-13 09:54] LABS: ALK PHOS 90 U/L (45-117)
[2017-06-13] MEDS ORDERED: CEFTRIAXONE 1 GM in DEXTROSE 5%-WATER - 100 ML IVPB SCH (10:00)
--- NOTE | 2017-06-13 10:35 | PN ---
Progress Note (short form) - Note Progress Note: Subjective: no events over night . Objective: Vital Signs: Last Vital Signs Temp Pulse Resp BP Pulse Ox 100.2 F H 89 22 99/61 100 06/13/17 06:00 06/13/17 09:30 06/13/17 09:30 06/13/17 08:00 06/13/17 09:30 Laboratory Results - last 24 hr 06/12/17 06/12/17 06/12/17 16:58 17:17 17:30 WBC RBC Hgb Hct MCV MCH MCHC RDW Plt Count MPV Neutrophils % Lymphocytes % Monocytes % Eosinophils % Basophils % PT with INR 13.80 H INR 1.22 H PTT (Actin FS) 30.2 Anticoagulation Therapy Puncture Site ABG pH ABG pCO2 at Pt Temp ABG pO2 at Pt Temp ABG HCO3 ABG O2 Sat (Measured) ABG O2 Content ABG Base Excess Francois Test VBG pH POC VBG pCO2 POC VBG pO2 Mixed VBG HCO3 O2 Delivery Device Oxygen Flow Rate Vent Mode Vent Rate Mechanical Rate PEEP Pressure Support Vent Sodium Potassium Chloride Carbon Dioxide Anion Gap BUN Creatinine Creat Clearance w eGFR POC Glucometer [id number] Random Glucose Serum Osmolality Lactic Acid Calcium Phosphorus Magnesium Total Bilirubin AST ALT Alkaline Phosphatase Creatine Kinase Creatine Kinase Index CK-MB (CK-2) Troponin I Total Protein Albumin Vitamin B12 TSH Urine Color Urine Appearance Urine pH Ur Specific [place] Urine Protein Urine Glucose (UA) Urine Ketones Urine Blood Urine Nitrite Urine Bilirubin Urine Urobilinogen Ur Leukocyte Esterase Urine WBC (Auto) Urine RBC (Auto) Ur Epithelial Cells Urine Bacteria Hyaline Casts Urine Mucus Urine Yeast Urine Osmolality U Random Total Protein Ur Random Sodium Ur Random Potassium Ur Random Chloride Urine Creatinine Salicylates Opiates Screen Methadone Screen Acetaminophen Barbiturate Screen Phencyclidine Screen Ur Amphetamines Screen MDMA (Ecstasy) Screen Benzodiazepines Screen Cocaine Screen U Marijuana (THC) Screen Blood Type O POSITIVE Antibody Screen Negative Crossmatch See Detail 06/12/17 06/12/17 06/12/17 17:30 17:30 17:30 WBC RBC Hgb Hct MCV MCH MCHC RDW Plt Count MPV Neutrophils % Lymphocytes % Monocytes % Eosinophils % Basophils % PT with INR INR PTT (Actin FS) Anticoagulation Therapy Puncture Site ABG pH ABG pCO2 at Pt Temp ABG pO2 at Pt Temp ABG HCO3 ABG O2 Sat (Measured) ABG O2 Content ABG Base Excess Francois Test VBG pH 7.02 L* POC VBG pCO2 17.0 L* POC VBG pO2 82.6 H Mixed VBG HCO3 4.2 L* O2 Delivery Device Oxygen Flow Rate Vent Mode Vent Rate Mechanical Rate PEEP Pressure Support Vent Sodium 154 H Potassium 4.6 Chloride 124 H Carbon Dioxide 4 L Anion Gap 26 H BUN 227 H* Creatinine 13.2 H* Creat Clearance w eGFR 2.93 POC Glucometer Random Glucose 151 H Serum Osmolality Lactic Acid Calcium 8.5 Phosphorus Magnesium Total Bilirubin 0.2 AST 9 L ALT 11 L Alkaline Phosphatase 104 Creatine Kinase 263 H Creatine Kinase Index 0.7 CK-MB (CK-2) 1.881 Troponin I < 0.02 Total Protein 6.4 Albumin 3.4 Vitamin B12 TSH Urine Color Holly Urine Appearance Cloudy Urine pH 5.0 Ur Specific [place] 1.020 Urine Protein 3+ H Urine Glucose (UA) 1+ H Urine Ketones Trace H Urine Blood 1+ H Urine Nitrite Negative Urine Bilirubin 2.0 Urine Urobilinogen Negative Ur Leukocyte Esterase 1+ H Urine WBC (Auto) 46 Urine RBC (Auto) 22 Ur Epithelial Cells Few Urine Bacteria Rare Hyaline Casts 17 Urine Mucus Rare Urine Yeast Many Urine Osmolality U Random Total Protein Ur Random Sodium Ur Random Potassium Ur Random Chloride Urine Creatinine Salicylates Opiates Screen Methadone Screen Acetaminophen Barbiturate Screen Phencyclidine Screen Ur Amphetamines Screen MDMA (Ecstasy) Screen Benzodiazepines Screen Cocaine Screen U Marijuana (THC) Screen Blood Type Antibody Screen Crossmatch 06/12/17 06/12/17 06/12/17 17:30 17:30 17:30 WBC RBC Hgb Hct MCV MCH MCHC RDW Plt Count MPV Neutrophils % Lymphocytes % Monocytes % Eosinophils % Basophils % PT with INR INR PTT (Actin FS) Anticoagulation Therapy Puncture Site ABG pH ABG pCO2 at Pt Temp ABG pO2 at Pt Temp ABG HCO3 ABG O2 Sat (Measured) ABG O2 Content ABG Base Excess Francois Test VBG pH POC VBG pCO2 POC VBG pO2 Mixed VBG HCO3 O2 Delivery Device Oxygen Flow Rate Vent Mode Vent Rate Mechanical Rate PEEP Pressure Support Vent Sodium Potassium Chloride Carbon Dioxide Anion Gap BUN Creatinine Creat Clearance w eGFR POC Glucometer Random Glucose Serum Osmolality Lactic Acid 1.3 Calcium Phosphorus Magnesium Total Bilirubin AST ALT Alkaline Phosphatase Creatine Kinase Cancelled Creatine Kinase Index CK-MB (CK-2) Troponin I Cancelled Total Protein Albumin Vitamin B12 TSH Urine Color Urine Appearance Urine pH Ur Specific [place] Urine Protein Urine Glucose (UA) Urine Ketones Urine Blood Urine Nitrite Urine Bilirubin Urine Urobilinogen Ur Leukocyte Esterase Urine WBC (Auto) Urine RBC (Auto) Ur Epithelial Cells Urine Bacteria Hyaline Casts Urine Mucus Urine Yeast Urine Osmolality U Random Total Protein Ur Random Sodium Ur Random Potassium Ur Random Chloride Urine Creatinine Salicylates Opiates Screen Methadone Screen Acetaminophen Barbiturate Screen Phencyclidine Screen Ur Amphetamines Screen MDMA (Ecstasy) Screen Benzodiazepines Screen Cocaine Screen U Marijuana (THC) Screen Blood Type O POSITIVE Antibody Screen Crossmatch 06/12/17 06/12/17 06/12/17 17:37 17:40 20:24 WBC 19.0 H RBC 3.64 Hgb 10.5 L Hct 32.6 MCV 89.5 MCH 28.8 MCHC 32.2 RDW 15.1 Plt Count 192 MPV 11.8 H Neutrophils % 83.6 H Lymphocytes % 9.3 Monocytes % 6.4 Eosinophils % 0.0 Basophils % 0.7 PT with INR INR PTT (Actin FS) Anticoagulation Therapy No Result Required. Puncture Site No Result Required. ABG pH 6.97 L* ABG pCO2 at Pt Temp 20.0 L ABG pO2 at Pt Temp 157.0 H* ABG HCO3 4.4 L* ABG O2 Sat (Measured) 98.2 ABG O2 Content 13.5 L ABG Base Excess -26.1 L* Francois Test No Result Required. VBG pH POC VBG pCO2 POC VBG pO2 Mixed VBG HCO3 O2 Delivery Device No Result Required. Oxygen Flow Rate No Result Required. Vent Mode No Result Required. Vent Rate No Result Required. Mechanical Rate No Result Required. PEEP Pressure Support Vent No Result Required. Sodium Potassium Chloride Carbon Dioxide Anion Gap BUN Creatinine Creat Clearance w eGFR POC Glucometer Random Glucose Serum Osmolality Lactic Acid Calcium Phosphorus Magnesium Total Bilirubin AST ALT Alkaline Phosphatase Creatine Kinase Creatine Kinase Index CK-MB (CK-2) Troponin I Total Protein Albumin Vitamin B12 TSH Urine Color Urine Appearance Urine pH Ur Specific [place] Urine Protein Urine Glucose (UA) Urine Ketones Urine Blood Urine Nitrite Urine Bilirubin Urine Urobilinogen Ur Leukocyte Esterase Urine WBC (Auto) Urine RBC (Auto) Ur Epithelial Cells Urine Bacteria Hyaline Casts Urine Mucus Urine Yeast Urine Osmolality U Random Total Protein Ur Random Sodium Ur Random Potassium Ur Random Chloride Urine Creatinine Salicylates Opiates Screen Negative Methadone Screen Negative Acetaminophen Barbiturate Screen Negative Phencyclidine Screen Negative Ur Amphetamines Screen Negative MDMA (Ecstasy) Screen Negative Benzodiazepines Screen Negative Cocaine Screen Negative U Marijuana (THC) Screen Negative Blood Type Antibody Screen Crossmatch 06/13/17 06/13/17 06/13/17 00:01 00:01 00:01 WBC RBC Hgb Hct MCV MCH MCHC RDW Plt Count MPV Neutrophils % Lymphocytes % Monocytes % Eosinophils % Basophils % PT with INR INR PTT (Actin FS) Anticoagulation Therapy No Result Required. Puncture Site Right radial ABG pH 7.19 L* D ABG pCO2 at Pt Temp 17.1 L* ABG pO2 at Pt Temp 469.0 H* ABG HCO3 6.3 L* ABG O2 Sat (Measured) 99.8 H* ABG O2 Content 15.0 ABG Base Excess -20.6 L* Francois Test Positive VBG pH POC VBG pCO2 POC VBG pO2 Mixed VBG HCO3 O2 Delivery Device No Result Required. Oxygen Flow Rate 100% Vent Mode No Result Required. Vent Rate 22 Mechanical Rate No Result Required. PEEP 5.0 Pressure Support Vent 400 Sodium Potassium Chloride Carbon Dioxide Anion Gap BUN Creatinine Creat Clearance w eGFR POC Glucometer Random Glucose Serum Osmolality 396 H Lactic Acid Calcium Phosphorus Magnesium Total Bilirubin AST ALT Alkaline Phosphatase Creatine Kinase Creatine Kinase Index CK-MB (CK-2) Troponin I Total Protein Albumin Vitamin B12 TSH Urine Color Urine Appearance Urine pH Ur Specific [place] Urine Protein Urine Glucose (UA) Urine Ketones Urine Blood Urine Nitrite Urine Bilirubin Urine Urobilinogen Ur Leukocyte Esterase Urine WBC (Auto) Urine RBC (Auto) Ur Epithelial Cells Urine Bacteria Hyaline Casts Urine Mucus Urine Yeast Urine Osmolality U Random Total Protein 143 H Ur Random Sodium 54 Ur Random Potassium Ur Random Chloride Urine Creatinine 214.0 Salicylates Opiates Screen Methadone Screen Acetaminophen Barbiturate Screen Phencyclidine Screen Ur Amphetamines Screen MDMA (Ecstasy) Screen Benzodiazepines Screen Cocaine Screen U Marijuana (THC) Screen Blood Type Antibody Screen Crossmatch 06/13/17 06/13/17 06/13/17 00:01 00:01 00:01 WBC 19.4 H RBC 3.43 L Hgb 10.0 L Hct 30.2 L MCV 87.9 MCH 29.1 MCHC 33.1 RDW 14.4 Plt Count 144 D MPV 12.2 H Neutrophils % Lymphocytes % Monocytes % Eosinophils % Basophils % PT with INR INR PTT (Actin FS) Anticoagulation Therapy Puncture Site ABG pH ABG pCO2 at Pt Temp ABG pO2 at Pt Temp ABG HCO3 ABG O2 Sat (Measured) ABG O2 Content ABG Base Excess Francois Test VBG pH POC VBG pCO2 POC VBG pO2 Mixed VBG HCO3 O2 Delivery Device Oxygen Flow Rate Vent Mode Vent Rate Mechanical Rate PEEP Pressure Support Vent Sodium 158 H Potassium 3.7 Chloride 129 H Carbon Dioxide 7 L D Anion Gap 22 H BUN 205 H* Creatinine 10.1 H* Creat Clearance w eGFR POC Glucometer Random Glucose 131 H Serum Osmolality Lactic Acid Calcium 7.8 L Phosphorus Magnesium Total Bilirubin AST ALT Alkaline Phosphatase Creatine Kinase Creatine Kinase Index CK-MB (CK-2) Troponin I Total Protein Albumin Vitamin B12 1198 H TSH 0.14 L Urine Color Urine Appearance Urine pH Ur Specific [place] Urine Protein Urine Glucose (UA) Urine Ketones Urine Blood Urine Nitrite Urine Bilirubin Urine Urobilinogen Ur Leukocyte Esterase Urine WBC (Auto) Urine RBC (Auto) Ur Epithelial Cells Urine Bacteria Hyaline Casts Urine Mucus Urine Yeast Urine Osmolality 409 U Random Total Protein Ur Random Sodium Ur Random Potassium Ur Random Chloride Urine Creatinine Salicylates Opiates Screen Methadone Screen Acetaminophen Barbiturate Screen Phencyclidine Screen Ur Amphetamines Screen MDMA (Ecstasy) Screen Benzodiazepines Screen Cocaine Screen U Marijuana (THC) Screen Blood Type Antibody Screen Crossmatch 06/13/17 06/13/17 06/13/17 00:01 00:01 01:30 WBC RBC Hgb Hct MCV MCH MCHC RDW Plt Count MPV Neutrophils % Lymphocytes % Monocytes % Eosinophils % Basophils % PT with INR INR PTT (Actin FS) Anticoagulation Therapy Puncture Site ABG pH ABG pCO2 at Pt Temp ABG pO2 at Pt Temp ABG HCO3 ABG O2 Sat (Measured) ABG O2 Content ABG Base Excess Francois Test VBG pH POC VBG pCO2 POC VBG pO2 Mixed VBG HCO3 O2 Delivery Device Oxygen Flow Rate Vent Mode Vent Rate Mechanical Rate PEEP Pressure Support Vent Sodium Potassium Chloride Carbon Dioxide Anion Gap BUN Creatinine Creat Clearance w eGFR POC Glucometer Random Glucose Serum Osmolality Lactic Acid 0.5 Calcium Phosphorus Magnesium Total Bilirubin AST ALT Alkaline Phosphatase Creatine Kinase Creatine Kinase Index CK-MB (CK-2) Troponin I Total Protein Albumin Vitamin B12 TSH Urine Color Urine Appearance Urine pH Ur Specific [place] Urine Protein Urine Glucose (UA) Urine Ketones Urine Blood Urine Nitrite Urine Bilirubin Urine Urobilinogen Ur Leukocyte Esterase Urine WBC (Auto) Urine RBC (Auto) Ur Epithelial Cells Urine Bacteria Hyaline Casts Urine Mucus Urine Yeast Urine Osmolality U Random Total Protein Ur Random Sodium Ur Random Potassium Ur Random Chloride Urine Creatinine Salicylates < 4.0 Opiates Screen Methadone Screen Acetaminophen 6.337 L Barbiturate Screen Phencyclidine Screen Ur Amphetamines Screen MDMA (Ecstasy) Screen Benzodiazepines Screen Cocaine Screen U Marijuana (THC) Screen Blood Type Antibody Screen Crossmatch 06/13/17 06/13/17 06/13/17 01:30 07:00 07:50 WBC RBC Hgb Hct MCV MCH MCHC RDW Plt Count MPV Neutrophils % Lymphocytes % Monocytes % Eosinophils % Basophils % PT with INR INR PTT (Actin FS) Anticoagulation Therapy Puncture Site ABG pH ABG pCO2 at Pt Temp ABG pO2 at Pt Temp ABG HCO3 ABG O2 Sat (Measured) ABG O2 Content ABG Base Excess Francois Test VBG pH POC VBG pCO2 POC VBG pO2 Mixed VBG HCO3 O2 Delivery Device Oxygen Flow Rate Vent Mode Vent Rate Mechanical Rate PEEP Pressure Support Vent Sodium 153 H Potassium Chloride 116 H Carbon Dioxide 26 D Anion Gap 11 BUN 97 H D Creatinine 3.8 H Creat Clearance w eGFR 12.33 POC Glucometer Random Glucose 133 H Serum Osmolality Lactic Acid Calcium 7.4 L Phosphorus 2.6 Magnesium 1.3 L Cancelled Total Bilirubin 0.5 D AST 15 D ALT 12 Alkaline Phosphatase 90 D Creatine Kinase Creatine Kinase Index CK-MB (CK-2) Troponin I Total Protein 5.2 L Albumin 2.7 L D Vitamin B12 TSH Urine Color Urine Appearance Urine pH Ur Specific [place] Urine Protein Urine Glucose (UA) Urine Ketones Urine Blood Urine Nitrite Urine Bilirubin Urine Urobilinogen Ur Leukocyte Esterase Urine WBC (Auto) Urine RBC (Auto) Ur Epithelial Cells Urine Bacteria Hyaline Casts Urine Mucus Urine Yeast Urine Osmolality U Random Total Protein Ur Random Sodium 54 Ur Random Potassium 22.3 Ur Random Chloride 46 Urine Creatinine Salicylates Opiates Screen Methadone Screen Acetaminophen Barbiturate Screen Phencyclidine Screen Ur Amphetamines Screen MDMA (Ecstasy) Screen Benzodiazepines Screen Cocaine Screen U Marijuana (THC) Screen Blood Type Antibody Screen Crossmatch 06/13/17 06/13/17 07:50 07:50 WBC 12.6 H D RBC 3.28 L Hgb 9.3 L Hct 27.4 L MCV 83.7 MCH 28.3 MCHC 33.8 RDW 14.1 Plt Count 133 L MPV 11.8 H Neutrophils % Lymphocytes % Monocytes % Eosinophils % Basophils % PT with INR 15.70 H INR 1.39 H PTT (Actin FS) Anticoagulation Therapy Puncture Site ABG pH ABG pCO2 at Pt Temp ABG pO2 at Pt Temp ABG HCO3 ABG O2 Sat (Measured) ABG O2 Content ABG Base Excess Francois Test VBG pH POC VBG pCO2 POC VBG pO2 Mixed VBG HCO3 O2 Delivery Device Oxygen Flow Rate Vent Mode Vent Rate Mechanical Rate PEEP Pressure Support Vent Sodium Potassium Chloride Carbon Dioxide Anion Gap BUN Creatinine Creat Clearance w eGFR POC Glucometer Random Glucose Serum Osmolality Lactic Acid Calcium Phosphorus Magnesium Total Bilirubin AST ALT Alkaline Phosphatase Creatine Kinase Creatine Kinase Index CK-MB (CK-2) Troponin I Total Protein Albumin Vitamin B12 TSH Urine Color Urine Appearance Urine pH Ur Specific [place] Urine Protein Urine Glucose (UA) Urine Ketones Urine Blood Urine Nitrite Urine Bilirubin Urine Urobilinogen Ur Leukocyte Esterase Urine WBC (Auto) Urine RBC (Auto) Ur Epithelial Cells Urine Bacteria Hyaline Casts Urine Mucus Urine Yeast Urine Osmolality U Random Total Protein Ur Random Sodium Ur Random Potassium Ur Random Chloride Urine Creatinine Salicylates Opiates Screen Methadone Screen Acetaminophen Barbiturate Screen Phencyclidine Screen Ur Amphetamines Screen MDMA (Ecstasy) Screen Benzodiazepines Screen Cocaine Screen U Marijuana (THC) Screen Blood Type Antibody Screen Crossmatch I&O: Intake & Output 06/10/17 06/11/17 06/12/17 06/13/17 23:59 23:59 23:59 23:59 Intake Total 1108 Output Total 100 850 Balance -100 258 Weight 200 lb 169 lb 15.622 oz Physical Exam: Intubated . sedated. round equal pupils , ET tube in lungs clear anteriorly CV: RRr Abd: soft, Nt, ND , NL BS Ext : no edema. DP , 2+ b/l Assessment/Plan: unfortunate 56 y/o lady withh/o HTN who presented with AMS and was found to have ZANE , s/p intubation and HD . 1- ZANE and severe metabolic acidosis needing emergency HD. unclear etiology yet, toxicology screen neg, tylenol and salicylate level nl. - hep panel pending , add hep B core abs , IgM - follow ANCA , DEANDRE , complement - cont planned HD - renal help appreciated - dc bicarb gtt , bicarb 23 and AG 11 2-acute hypoxic resp failure : due to pulm edema /uremia a/and metabolic acidosis - cont mechanical ventilation 3- blood around mouth , likely due to pulm edema , and/or uremia - PPI daily - unlikely GI bleed, check OB - follow H&H 4- sepsis : possibl eUTI. - follow urine and blood cx - cont ceftriaxone 5- hypernatremia: monitor with HD . 6- replete Mg SCDS Visit type - Emergency Visit Emergency Visit: Yes ED Registration Date: 06/12/17 Care time: The patient presented to the Emergency Department on the above date and was hospitalized for further evaluation of their emergent condition. - New Patient This patient is new to me today: No - Critical Care Critical Care patient: No
--- NOTE | 2017-06-13 11:05 | CON.GI ---
Consult Consult Specialty:: GI: Dr. Jesus for Dr. Galloway Referred by:: Hospitalist Service Reason for Consultation:: GI Bleed - History of Present Illness Chief Complaint: Patient intubated and sedated. Admitted for increasing lethargy and confusion History of Present Illness: 56F admitted for evaluation of increasing lethargy, confusion, intubated after admission. Noted to have black crusted secretions around mouth with no reported hematemesis or vomiting at home per the chart. No overt rectal bleeding / melena noted and NGT was placed s/p intubation. bilious output per Nurse. - History Source History Provided By: Medical Record Limitations to Obtaining History: Intubated - Past Medical History Cardio/Vascular: Yes: HTN - Past Surgical History Past Surgical History: Yes: Appendectomy (?, by RLQ scar), Cholecystectomy (By healed RUQ trochar scars) - Alcohol/Substance Use Hx Alcohol Use: Yes - Smoking History Smoking history: Current every day smoker Aproximately how many cigarettes per day: 20 - Social History Usual Living Arrangement: With Significant Other Home Medications - Allergies Allergies/Adverse Reactions: Allergies Allergy/AdvReac Type Severity Reaction Status Date / Time No Known Allergies Allergy Verified 06/12/17 18:35 Family Disease History - Family Disease History Family History: Unable to Obtain Review of Systems Unable to obtain ROS, reason: Intubated Physical Exam-GI Vital Signs: Vital Signs Temperature 100.2 F H 06/13/17 10:00 Pulse Rate 86 06/13/17 10:00 Respiratory Rate 22 06/13/17 10:00 Blood Pressure 102/60 06/13/17 10:00 O2 Sat by Pulse Oximetry (%) 100 06/13/17 09:30 Constitutional: Yes: Calm Eyes: No: Sclera Icterus Cardiovascular: Yes: Regular Rate and Rhythm. No: Murmur Respiratory: Yes: Diminished (at bases b/l, poor insp effort) Gastrointestinal Inspection: Yes: Scars (+ RLQ scar, + healed RUQ trochar scars) . No: Distention, Hernia ...Auscultate: Yes: Normoactive Bowel Sounds ...Palpate: No: Tenderness ( No grimacing upon palpation) ...Percussion: No: Tympanitic ...Rectal Exam: Yes: Guaiac Negative (Scant light brown stool in rectal vault, guaiac negative) Edema: No (No LE edema) Neurological: Yes: Other (Intubated, sedated) Labs: CBC, BMP 06/13/17 07:50 06/13/17 07:00 INR, PTT INR 1.39 (0.82-1.09) H 06/13/17 07:50 Imaging - Results Cat Scan: Image Reviewed (No read as of yet) Problem List - Problems (1) GI bleed Assessment/Plan: No overt bleeding history and guaiac negative on exam She does have a normocytic anemia however I wonder if this is secondary to ongoing systemic process / sepsis and renal failure No acute GI interventions planned at this time Monitor H/H and for overt GI bleeding PPI Check Iron studies When acute issues are resolved, EGD would be warranted as well as screening colonoscopy if this has not been performed recently. Unclear if she has outpatient GI care. Code(s): K92.2 - GASTROINTESTINAL HEMORRHAGE, UNSPECIFIED Qualifiers: GI bleed type/associated pathology: unspecified gastrointestinal hemorrhage type Qualified Code(s): K92.2 - Gastrointestinal hemorrhage, unspecified
[2017-06-13 11:22] LABS: POTASSIUM 2.2 mmol/L (3.5-5.1)
[2017-06-13] MEDS ORDERED: MAGNESIUM SULF 50% (8.12 MEQ/2 ML-1 GM VIAL) ONE (11:51)
[2017-06-13] MEDS: CEFTRIAXONE 1 G/50 ML PREMIX 50 ML IVPB SCH (11:54)
[2017-06-13] MEDS ORDERED: MAGNESIUM 2GM/50ML STERILE WATER IVPB IVPB ONE (12:00)
[2017-06-13] MEDS: PANTOPRAZOLE SODIUM 40 MG VIAL IVPUSH SCH (12:11)
[2017-06-13] MEDS: POTASSIUM CHLORIDE 20 MEQ PREMIX IVPB 100 ML IVPB SCH ×2 (12:27→16:32)
[2017-06-13] MEDS ORDERED: NOREPINEPHRINE BITARTRATE 4 MG/4 ML ML IV ONE (13:55)
[2017-06-13] MEDS: NOREPINEPHRINE BITARTRATE 16,000 MCG in DEXTROSE 5%-WATER - 984 ML IV SCH (14:05)
[2017-06-13 18:29] LABS: BASO % 0.2 % (0-2.0); EOS % 0.1 % (0-4.5); HEMOGLOBIN 10.3 GM/dL (10.7-15.3); LYMPH % 9.8 % (8-40); MCH 28.7 pg (25.7-33.7); MCHC 34.2 g/dl (32.0-36.0); MEAN PLT VOLUME 11.6 fl (7.5-11.1); MONO % 12.3 % (3.8-10.2); NEUT % 77.6 % (42.8-82.8); PLATELET COUNT 143 K/MM3 (134-434); RBC 3.57 M/mm3 (3.60-5.2); RDW 13.8 % (11.6-15.6); WHITE BLOOD COUNT 15.5 K/mm3 (4.0-10.0)
[2017-06-13 18:53] LABS: ANION GAP 8 (8-16); BLOOD UREA NITROGEN 33 mg/dL (7-18); CHLORIDE 106 mmol/L (98-107); CO2 31 mmol/L (21-32); CREATININE 1.3 mg/dL (0.55-1.02); GLUCOSE,RANDOM 158 mg/dL (74-106); SODIUM 145 mmol/L (136-145)
[2017-06-13] MEDS ORDERED: VANCOMYCIN 1,000 MG in DEXTROSE 5%-WATER - 250 ML IVPB ONE (19:00)
[2017-06-13 19:18] LABS: POTASSIUM 2.9 mmol/L (3.5-5.1)
[2017-06-13] MEDS ORDERED: KCL 10 MEQ IVPB 10 MEQ/100 ML INFUS.BAG IVPB SCH (20:00)
[2017-06-13] MEDS: POTASSIUM CHLORIDE 10 MEQ in SODIUM CHLORIDE 100 ML IVPB SCH ×3 (20:00→22:04)
[2017-06-13] MEDS: MIDAZOLAM 100 MG in SODIUM CHLORIDE 100 ML IVPB SCH (22:04)
[2017-06-14 01:40] LABS: ANION GAP 9 (8-16); BLOOD UREA NITROGEN 39 mg/dL (7-18); CALCIUM 7.4 mg/dL (8.5-10.1); CHLORIDE 105 mmol/L (98-107); CO2 30 mmol/L (21-32); CREATININE 1.6 mg/dL (0.55-1.02); GLUCOSE,RANDOM 137 mg/dL (74-106); SODIUM 144 mmol/L (136-145)
[2017-06-14 01:45] LABS: POTASSIUM 2.8 mmol/L (3.5-5.1)
[2017-06-14] MEDS ORDERED: POTASSIUM CHLORIDE 20 MEQ PREMIX IVPB 100 ML IVPB SCH ×2 (02:15→09:45)
[2017-06-14] MEDS ORDERED: MAGNESIUM SULF 50% (8.12 MEQ/2 ML-1 GM VIAL) IVPB ONE (02:19)
[2017-06-14] MEDS ORDERED: POTASSIUM CHLORIDE 20 MEQ PREMIX IVPB 100 ML IVPB ONE ×2 (02:20)
[2017-06-14] MEDS: FENTANYL INJECTION 500 MCG in SODIUM CHLORIDE 90 ML IVPB SCH (03:03)
[2017-06-14] MEDS: SODIUM CHLORIDE IVPB SCH ×5 (03:04→13:16)
[2017-06-14] MEDS: POTASSIUM CHLORIDE IVPB SCH ×5 (03:04→13:16)
[2017-06-14] MEDS ORDERED: ACETAMINOPHEN 1000 MG/100 ML VIAL (NON FORMULARY) IVPB ONE (04:23)
[2017-06-14] MEDS ORDERED: ACETAMINOPHEN 1000 MG/100 ML VIAL (NON FORMULARY) IVPB PRN (04:36)
[2017-06-14 06:47] LABS: ARTERIAL BLD GAS O2 SATURATION 99.2 % (90-98.9); ARTERIAL BLOOD GAS BASE EXCESS 3.7 meq/l (-2-2); ARTERIAL BLOOD GAS pH 7.53 (7.35-7.45)
[2017-06-14 06:55] LABS: ALLENS TEST POSITIVE
[2017-06-14 07:25] LABS: BASO % 0.2 % (0-2.0); EOS % 0.1 % (0-4.5); HEMATOCRIT 28.1 % (32.4-45.2); HEMOGLOBIN 9.4 GM/dL (10.7-15.3); LYMPH % 20.9 % (8-40); MCH 28.4 pg (25.7-33.7); MCHC 33.4 g/dl (32.0-36.0); MEAN CELL VOLUME 84.8 fl (80-96); MEAN PLT VOLUME 11.5 fl (7.5-11.1); MONO % 12.7 % (3.8-10.2); NEUT % 66.1 % (42.8-82.8); PLATELET COUNT 112 K/MM3 (134-434); RBC 3.31 M/mm3 (3.60-5.2); WHITE BLOOD COUNT 15.5 K/mm3 (4.0-10.0)
[2017-06-14 07:28] LABS: ALBUMIN 2.6 g/dl (3.4-5.0); ANION GAP 7 (8-16); BLOOD UREA NITROGEN 36 mg/dL (7-18); CHLORIDE 108 mmol/L (98-107); CO2 30 mmol/L (21-32); GLUCOSE,RANDOM 109 mg/dL (74-106); PHOSPHOROUS 1.9 mg/dL (2.5-4.9); POTASSIUM 3.5 mmol/L (3.5-5.1); SGOT/AST 74 U/L (15-37); SODIUM 145 mmol/L (136-145)
[2017-06-14 07:31] LABS: ALK PHOS 167 U/L (45-117); BILIRUBIN,TOTAL 0.5 mg/dL (0.2-1.0); CALCIUM 7.3 mg/dL (8.5-10.1); CREATININE 1.5 mg/dL (0.55-1.02); MAGNESIUM 2.3 mg/dL (1.8-2.4); SGPT/ALT 57 U/L (12-78); TOT PROT 5.1 g/dl (6.4-8.2)
[2017-06-14] MEDS: CEFTRIAXONE 1 G/50 ML PREMIX 50 ML IVPB SCH (09:26)
[2017-06-14] MEDS: MUPIROCIN 2% TOPICAL OINTMENT FOR DECOLONIZATION NS SCH ×2 (09:27→22:06)
[2017-06-14] MEDS: CLOTRIMAZOLE 1% CREAM 15 GM TUBE TP SCH ×2 (09:28→22:07)
[2017-06-14] MEDS: PANTOPRAZOLE SODIUM 40 MG VIAL IVPUSH SCH (09:29)
--- NOTE | 2017-06-14 09:40 | PN ---
Progress Note (short form) - Note Progress Note: Renal follow up for ZANE/Emergent dialysis Pt seen and examined in the ICU on Vent, awake and alert off pressers and IVF BP stable making urine s/p 2nd dialysis yesterday Vital Signs Temperature 100.2 F H 06/14/17 06:00 Pulse Rate 108 H 06/14/17 09:15 Respiratory Rate 22 06/14/17 06:00 Blood Pressure 101/59 06/14/17 09:15 O2 Sat by Pulse Oximetry (%) 100 06/13/17 22:00 awake and alert on vent via ET tube CTA soft NT/ND Abd no LE edema ott in place CBC, BMP 06/14/17 05:25 06/14/17 05:25 Current Medications Acetaminophen (Ofirmev Injection -) 1,000 mg IVPB Q6H PRN PRN Reason: FEVER Last Admin: 06/14/17 04:59 Dose: 1,000 mg Chlorhexidine Gluconate (Hibiclens For Decolonization -) 1 applic TP HS JAVI Last Admin: 06/13/17 22:02 Dose: 1 applic Clotrimazole (Lotrimin 1% Cream -) 1 applic TP BID JAVI Last Admin: 06/14/17 09:28 Dose: 1 applic Midazolam HCl 100 mg/ Sodium (Chloride) 100 mls @ 1 mls/hr IVPB TITR JAVI; 1 MG/ HR PRN Reason: Protocol Last Titration: 06/14/17 09:00 Dose: 0 mg/hr, 0 mls/hr Fentanyl 500 mcg/ Sodium (Chloride) 100 mls @ 20 mls/hr IVPB TITR JAVI; 100 MCG/ HR PRN Reason: Protocol Last Admin: 06/14/17 03:03 Dose: Not Given CEFTRIAXONE 1 G/50 ML PREMIX (Ceftriaxone 1 Gm-D5w Bag) 50 mls @ 100 mls/hr IVPB DAILY JAVI Last Admin: 06/14/17 09:26 Dose: 100 mls/hr Norepinephrine Bitartrate 16, (000 mcg/ Dextrose) 1,000 mls @ 18.75 mls/hr IV TITR JAVI; 5 MCG/MIN PRN Reason: Protocol Last Titration: 06/14/17 09:15 Dose: 0 mcg/min, 0 mls/hr Mupirocin (Bactroban Ointment (For Decolonization) -) 1 applic NS BID [facility] Stop: 06/17/17 21:59 Last Admin: 06/14/17 09:27 Dose: 1 applic Pantoprazole Sodium (Protonix Iv) 40 mg IVPUSH DAILY [facility] Last Admin: 06/14/17 09:29 Dose: 40 mg Potassium Chloride (Potassium Chloride 20 Meq Premix Ivpb -) 20 meq IVPB Q60M [facility] Stop: 06/14/17 10:46 56 year old woman with PMhx of Hypertension who presented from home with AMS and found to have renal failure and metabolic acidosis. #Acute Renal Failure with encephalopathy and severe metabolic acidosis s/p dialysis x 2 with marked improvement in BUN/Cr pt with good urine output and likely showing renal recovery ? if severe volume depletion the cause of the renal failure vs. ATN pt with rapid improvement no obstructing stones seen on CT, but ? if she may have had a obstruction that resolved before imaging serologic work up negative so far Methanol and Ethylene gylcol levels pending acidosis is resolved hypernatremia resolved holding free water no acute indication for [employer] at this time trend BUN/Cr keep MAP > 65 avoid nsaids, NABILA/ARB at this time supplament KCL to keep > 3.5 repeat bmp in the evening Thank you Will follow Bill Oliveros DO
--- NOTE | 2017-06-14 11:41 | EKG ---
Test Reason : Blood Pressure : / mmHG Vent. Rate : 118 BPM Atrial Rate : 119 BPM P-R Int : 000 ms QRS Dur : 084 ms QT Int : 326 ms P-R-T Axes : 000 002 052 degrees QTc Int : 456 ms POOR DATA QUALITY, INTERPRETATION MAY BE ADVERSELY AFFECTED SINUS TACHYCARDIA ABNORMAL ECG NO PREVIOUS ECGS AVAILABLE Confirmed by KUMAR SALVADOR MD ([id number]) on 06/14/2017 11:41:18 AM Referred By: Confirmed By:KUMAR SALVADOR MD
--- NOTE | 2017-06-14 12:17 | PN ---
Teaching Attending Note Name of Resident: Katy Encarnacion ATTENDING PHYSICIAN STATEMENT I saw and evaluated the patient. I reviewed the resident's note and discussed the case with the resident. I agree with the resident's findings and plan as documented. SUBJECTIVE: Pt seen and examined in the ICU. Remains intubated, arousable off sedation. Dialyzed again yesterday. Good urine output. Tolerating CPAP/PS trials. Low grade fevers overnight. OBJECTIVE: Last Vital Signs Temp Pulse Resp BP Pulse Ox 100.2 F H 108 H 22 101/59 99 06/14/17 06:00 06/14/17 09:15 06/14/17 09:00 06/14/17 09:15 06/14/17 09:00 Intake & Output 06/11/17 06/12/17 06/13/17 06/14/17 23:59 23:59 23:59 23:59 Intake Total 3316 970 Output Total 100 2250 500 Balance -100 1066 470 Weight 90.718 kg 77.1 kg 79.5 kg Gen: intubated, arousable Heart: tachycardic, regular Lung: decreased breath sounds at the bases Abd: soft, nontender Ext: no edema CBC, BMP 06/14/17 05:25 06/14/17 05:25 Active Medications Acetaminophen (Ofirmev Injection -) 1,000 mg IVPB Q6H PRN PRN Reason: FEVER Last Admin: 06/14/17 04:59 Dose: 1,000 mg Chlorhexidine Gluconate (Hibiclens For Decolonization -) 1 applic TP HS JAVI Last Admin: 06/13/17 22:02 Dose: 1 applic Clotrimazole (Lotrimin 1% Cream -) 1 applic TP BID JAVI Last Admin: 06/14/17 09:28 Dose: 1 applic Midazolam HCl 100 mg/ Sodium (Chloride) 100 mls @ 1 mls/hr IVPB TITR JAVI; 1 MG/ HR PRN Reason: Protocol Last Titration: 06/14/17 09:00 Dose: 0 mg/hr, 0 mls/hr Fentanyl 500 mcg/ Sodium (Chloride) 100 mls @ 20 mls/hr IVPB TITR JAVI; 100 MCG/ HR PRN Reason: Protocol Last Admin: 06/14/17 03:03 Dose: Not Given CEFTRIAXONE 1 G/50 ML PREMIX (Ceftriaxone 1 Gm-D5w Bag) 50 mls @ 100 mls/hr IVPB DAILY [facility] Last Admin: 06/14/17 09:26 Dose: 100 mls/hr Norepinephrine Bitartrate 16, (000 mcg/ Dextrose) 1,000 mls @ 18.75 mls/hr IV TITR JAVI; 5 MCG/MIN PRN Reason: Protocol Last Titration: 06/14/17 09:15 Dose: 0 mcg/min, 0 mls/hr Mupirocin (Bactroban Ointment (For Decolonization) -) 1 applic NS BID [facility] Stop: 06/17/17 21:59 Last Admin: 06/14/17 09:27 Dose: 1 applic Pantoprazole Sodium (Protonix Iv) 40 mg IVPUSH DAILY [facility] Last Admin: 06/14/17 09:29 Dose: 40 mg ASSESSMENT AND PLAN: Acute Respiratory Failure Acute Kidney Injury requiring emergent HD Uremic Encephalopathy improving Severe Metabolic Acidosis resolving r/o UTI HTN - HD per renal - monitor urine output, creatinine - empiric antibiotics - f/u cultures - spontaneous breathing trials as tolerated - wean to extubate - DVT/GI prophylaxis - continue ICU monitoring critical care time spent in reviewing chart, evaluating patient and formulating plan 35 min
[2017-06-14] MEDS ORDERED: ONDANSETRON 4 MG/2 ML VIAL IVPUSH ONE (12:27)
--- NOTE | 2017-06-14 14:05 | PN ---
Physical Exam: SUBJECTIVE: Patient seen and examined. Has had 2 dialysis sessions since admission- 06/12/17 and 06/13. No complaints over night. Weaning off levophed. Was on 5mcg overnight. For sedation vacation (versed) and extubation trial and likely extubation today. Making urine better. No longer acidotic. Vital Signs Period Temp Pulse Resp BP Sys/Garnica Pulse Ox Last 24 Hr 98.8 F-100.7 F 78-110 18-24 81-115/54-75 99-100 Intake & Output 06/13/17 06/14/17 06/14/17 23:59 11:59 23:59 Intake Total 2208 970 Output Total 1400 500 Balance 808 470 Weight 79.5 kg Intake: IV 758 270 D5w - 1,000 ml @ 125 mls/ 425 hr IV ONCE ONE with Sodium Bicarbonate 8.4% - 150 Meq Rx#:[id number] Levophed - 16,000 Mcg In 95 219 D5w - 984 ml @ 5 MCG/MIN 18.75 mls/hr IV TITR JAVI Rx#:[id number] Versed - 100 mg In Normal 48 51 Saline - 100 ml @ 1 MG/ HR 1 mls/hr IVPB TITR JAVI Rx#:[id number] fentanyl 140 protonix 50 IVPB 550 700 Tube Irrigant 900 0 Output: Gastric Drainage 100 Urine 1300 500 Ott 1300 500 Other: Voiding Method Indwelling Catheter Indwelling Catheter Bowel Movement No No Weight Measurement Method Built in [facility] OBJECTIVE: GENERAL: The patient is awake, drowsy but arousable. HEAD: Normal with no signs of trauma. EYES: Opens eyes to voice. Pupils reactive bilaterally ENT: Intubated off sedation, with OGT-VCV-AC- TV-400, 8/5, fio2-40%, RR-22. Good cough and gag reflex. NECK: supple, RIJ, trialysis catheter (06/02/17). LUNGS: Breath sounds decreased more on L, creps>R HEART: Regular rate and rhythm, S1, S2 . ABDOMEN: Soft, nontender, nondistended, normoactive bowel sounds EXTREMITIES: 2+ pulses, warm, well-perfused, no edema, no scds. NEUROLOGICAL: Drowsy but arousable. Follows commands. Gait not observed. SKIN: Warm, dry Lines: ETT, OGT, ott in place draining clear urine, RIJ ABG Results ABG pH 7.53 (7.35-7.45) H D 06/14/17 06:32 ABG pCO2 at Pt Temp 31.0 mmHg (35-45) L D 06/14/17 06:32 ABG pO2 at Pt Temp 133.0 mmHg (80-100) H D 06/14/17 06:32 ABG HCO3 26.0 meq/L (22-26) 06/14/17 06:32 ABG O2 Sat (Measured) 99.2 % (90-98.9) H 06/14/17 06:32 ABG O2 Content 13.1 % vol (15-22) L 06/14/17 06:32 ABG Base Excess 3.7 meq/l (-2-2) H 06/14/17 06:32 Laboratory Results - last 24 hr 06/13/17 06/13/17 06/13/17 01:30 18:00 18:00 WBC 15.5 H RBC 3.57 L Hgb 10.3 L D Hct 30.0 L MCV 84.0 MCH 28.7 MCHC 34.2 RDW 13.8 Plt Count 143 MPV 11.6 H Neutrophils % 77.6 Lymphocytes % 9.8 Monocytes % 12.3 H D Eosinophils % 0.1 D Basophils % 0.2 Puncture Site ABG pH ABG pCO2 at Pt Temp ABG pO2 at Pt Temp ABG HCO3 ABG O2 Sat (Measured) ABG O2 Content ABG Base Excess Francois Test O2 Delivery Device Oxygen Flow Rate Vent Mode Vent Rate PEEP Pressure Support Vent Sodium 145 Potassium 2.9 L* Chloride 106 Carbon Dioxide 31 Anion Gap 8 BUN 33 H D Creatinine 1.3 H Creat Clearance w eGFR Random Glucose 158 H Calcium 8.0 L Phosphorus Magnesium Total Bilirubin AST ALT Alkaline Phosphatase Total Protein Albumin Hepatitis C Antibody Cancelled 06/14/17 06/14/17 06/14/17 01:00 05:25 05:25 WBC 15.5 H RBC 3.31 L Hgb 9.4 L Hct 28.1 L MCV 84.8 MCH 28.4 MCHC 33.4 RDW 14.0 Plt Count 112 L D MPV 11.5 H Neutrophils % 66.1 Lymphocytes % 20.9 D Monocytes % 12.7 H Eosinophils % 0.1 Basophils % 0.2 Puncture Site ABG pH ABG pCO2 at Pt Temp ABG pO2 at Pt Temp ABG HCO3 ABG O2 Sat (Measured) ABG O2 Content ABG Base Excess Francois Test O2 Delivery Device Oxygen Flow Rate Vent Mode Vent Rate PEEP Pressure Support Vent Sodium 144 145 Potassium 2.8 L* 3.5 Chloride 105 108 H Carbon Dioxide 30 30 Anion Gap 9 7 L BUN 39 H 36 H Creatinine 1.6 H 1.5 H Creat Clearance w eGFR 36.05 Random Glucose 137 H 109 H Calcium 7.4 L 7.3 L Phosphorus 1.9 L D Magnesium 2.3 D Total Bilirubin 0.5 AST 74 H D ALT 57 D Alkaline Phosphatase 167 H D Total Protein 5.1 L Albumin 2.6 L Hepatitis C Antibody 06/14/17 06:32 WBC RBC Hgb Hct MCV MCH MCHC RDW Plt Count MPV Neutrophils % Lymphocytes % Monocytes % Eosinophils % Basophils % Puncture Site Right radial ABG pH 7.53 H D ABG pCO2 at Pt Temp 31.0 L D ABG pO2 at Pt Temp 133.0 H D ABG HCO3 26.0 ABG O2 Sat (Measured) 99.2 H ABG O2 Content 13.1 L ABG Base Excess 3.7 H Francois Test Positive O2 Delivery Device Mech vent Oxygen Flow Rate 40% Vent Mode A/c Vent Rate 22 PEEP 5.0 Pressure Support Vent 400 Sodium Potassium Chloride Carbon Dioxide Anion Gap BUN Creatinine Creat Clearance w eGFR Random Glucose Calcium Phosphorus Magnesium Total Bilirubin AST ALT Alkaline Phosphatase Total Protein Albumin Hepatitis C Antibody Microbiology 06/12/17 17:30 Blood - Peripheral Venous Blood Culture - Preliminary Staphylococcus Coagulase Neg 06/12/17 17:30 Blood - Peripheral Venous Blood Culture - Preliminary NO GROWTH OBTAINED AFTER 24 HOURS, INCUBATION TO CONTINUE FOR 4 DAYS. Active Medications Generic Name Dose Route Start Last Admin Trade Name Freq PRN Reason Stop Dose Admin Acetaminophen 1,000 mg 06/14/17 04:36 06/14/17 04:59 Ofirmev Injection - IVPB 1,000 mg Q6H PRN Administration FEVER Chlorhexidine Gluconate 1 applic 06/12/17 22:00 06/13/17 22:02 Hibiclens For Decolonization - TP 1 applic HS JAVI Administration Clotrimazole 1 applic 06/13/17 00:45 06/14/17 09:28 Lotrimin 1% Cream - TP 1 applic BID JAVI Administration Midazolam HCl 100 mg/ Sodium 100 mls @ 1 mls/hr 06/12/17 18:30 06/14/17 09:00 Chloride IVPB 0 mg/hr TITR JAVI 0 mls/hr Protocol Titration 1 MG/HR Fentanyl 500 mcg/ Sodium 100 mls @ 20 mls/hr 06/13/17 01:15 06/14/17 03:03 Chloride IVPB Not Given TITR JAVI Protocol 100 MCG/HR CEFTRIAXONE 1 G/50 ML PREMIX 50 mls @ 100 mls/hr 06/13/17 10:00 06/14/17 09: 26 Ceftriaxone 1 Gm-D5w Bag IVPB 100 mls/hr DAILY JAVI Administration Norepinephrine Bitartrate 16, 1,000 mls @ 18.75 mls/hr 06/13/17 15:15 09:15 000 mcg/ Dextrose IV 0 mcg/min TITR JAVI 0 mls/hr Protocol Titration 5 MCG/MIN Mupirocin 1 applic 06/12/17 22:00 06/14/17 09:27 Bactroban Ointment (For Decolonization) - NS 06/17/17 21:59 1 applic BID JAVI Administration Pantoprazole Sodium 40 mg 06/13/17 11:00 06/14/17 09:29 Protonix Iv IVPUSH 40 mg DAILY JAVI Administration Potassium Phos/Sodium Phos 1 packet 06/14/17 12:30 Phos-Nak Packet - PO BID JAVI ASSESSMENT/PLAN: 56 yo F with PMhx of HTN presented with AMS, and acute respiratory failure with metabolic acidosis and ZANE, intubated to protect her airway Neuro: AMS- likely metabolic 2/2 to ZANE, patient had 2 dialysis sessions AAO x3 , intubated, off sedation and able to obey commands Stop versed Patient started on CPAP trial 01/02 - extubated today Pulm: Acute respiratory failure Tolerated CPAP well - extubated today Cardio: Hx of HTN Came in hypotensive- required pressor support with 5mcg levophed now weaned off and tolerating well antihypertensives on hold Renal/ Lytes/Fluids/Lines: Metabolic Acidosis likely secondary to ZANE r/O CKD s/p dialysis BUN/Cr- improved Dr Oliveros following Making urine Hypophosphatemia- repleted Maintain ott for Is and Os RIJ trialysis catheter, ott, ( endotracheal tube and OGT removed) GI: History of blood around nose/ face preintubation No elin bleeding noted Cont iv Protonix 40mg daily GI consult-being followed For feeds following bedside evaluation s/p extubation ID: Severe sepsis with bacteremia with likely staph coag -ve Continue ceftriaxone 1g daily Follow cx Prophylaxis: SCDs- bilaterally (anemia R/O GI bleeding) Dispo: Monitor in ICU Visit type - Emergency Visit Emergency Visit: Yes ED Registration Date: 06/12/17 Care time: The patient presented to the Emergency Department on the above date and was hospitalized for further evaluation of their emergent condition. - New Patient This patient is new to me today: Yes Date on this admission: 06/14/17 - Critical Care Critical Care patient: Yes Total Critical Care Time (in minutes): 42 Critical Care Statement: The care of this patient involved high complexity decision making to prevent further life threatening deterioration of the patient 's condition and/or to evaluate & treat vital organ system(s) failure or risk of failure.
--- NOTE | 2017-06-14 14:18 | PN ---
Teaching Attending Note Name of Resident: Noah Alcazar ATTENDING PHYSICIAN STATEMENT I saw and evaluated the patient. I reviewed the resident's note and discussed the case with the resident. I agree with the resident's findings and plan as documented. SUBJECTIVE: no events over night . OBJECTIVE: Intubated . arousable , shes and nods her head . lungs clear anteriorly CV: RRr Abd: soft, Nt, ND , NL BS Ext : no edema. DP , 2+ b/l Assessment/Plan: Unfortunate 56 y/o lady with h/o HTN who presented with AMS and was found to have ZANE , s/p intubation and HD . 1- ZANE and severe metabolic acidosis needing emergency HD. - cont to make urine , renal function improved after 2 sessions of HD - follow all serology ( Hep, DEANDRE , ANCA , complement ) - appreciate renal help - cont pressor support - add IVF NS at 100. d/w renal who agreed 2-Acute hypoxic resp failure: due to pulm edema /uremia a/and metabolic acidosis - possible extubation if tolerated today 3- Severe sepsis : possible UTI - follow urine - blood cx with one set positive for coag Neg staph. repeat blood cx. likely contamination - cont ceftriaxone 5- Hypernatremia: resolved SCds , add heparin sq.
[2017-06-14] MEDS ORDERED: SODIUM CHLORIDE 1,000 ML IV SCH (14:30)
--- NOTE | 2017-06-14 16:01 | PN ---
Physical Exam: SUBJECTIVE: Patient seen and examined at bedside. Patient was extubated this morning. Denies any pain or distress, but states that she still feels "loopy". Denies chest pain, SOB, fevers, chills. OBJECTIVE: Vital Signs Period Temp Pulse Resp BP Sys/Garnica Pulse Ox Last 24 Hr 100 F-100.7 F 78-110 18-24 91-115/54-75 99-100 GENERAL: The patient is awake, mildly alert but is oriented. No acute distress HEAD: Normal with no signs of trauma. EYES: PERRL, extraocular movements intact, sclera anicteric, conjunctiva clear. No ptosis. ENT: Ears normal, nares patent, oropharynx clear without exudates, moist mucous membranes. NECK: Trachea midline, full range of motion, supple. LUNGS: Breath sounds equal, coarse breath sounds bilaterally HEART: Regular rate and rhythm, S1, S2 without murmur, rub or gallop. ABDOMEN: Soft, nontender, nondistended, normoactive bowel sounds, no guarding, no rebound, no hepatosplenomegaly, no masses. EXTREMITIES: 2+ pulses, warm, well-perfused, no edema. NEUROLOGICAL: Cranial nerves II through XII grossly intact. Normal speech, gait not observed. PSYCH: Normal mood, normal affect. SKIN: Warm, dry, normal turgor, no rashes or lesions noted Laboratory Results - last 24 hr 06/13/17 06/13/17 06/14/17 18:00 18:00 01:00 WBC 15.5 H RBC 3.57 L Hgb 10.3 L D Hct 30.0 L MCV 84.0 MCH 28.7 MCHC 34.2 RDW 13.8 Plt Count 143 MPV 11.6 H Neutrophils % 77.6 Lymphocytes % 9.8 Monocytes % 12.3 H D Eosinophils % 0.1 D Basophils % 0.2 Puncture Site ABG pH ABG pCO2 at Pt Temp ABG pO2 at Pt Temp ABG HCO3 ABG O2 Sat (Measured) ABG O2 Content ABG Base Excess Francois Test O2 Delivery Device Oxygen Flow Rate Vent Mode Vent Rate PEEP Pressure Support Vent Sodium 145 144 Potassium 2.9 L* 2.8 L* Chloride 106 105 Carbon Dioxide 31 30 Anion Gap 8 9 BUN 33 H D 39 H Creatinine 1.3 H 1.6 H Creat Clearance w eGFR Random Glucose 158 H 137 H Calcium 8.0 L 7.4 L Phosphorus Magnesium Total Bilirubin AST ALT Alkaline Phosphatase Total Protein Albumin 06/14/17 06/14/17 06/14/17 05:25 05:25 06:32 WBC 15.5 H RBC 3.31 L Hgb 9.4 L Hct 28.1 L MCV 84.8 MCH 28.4 MCHC 33.4 RDW 14.0 Plt Count 112 L D MPV 11.5 H Neutrophils % 66.1 Lymphocytes % 20.9 D Monocytes % 12.7 H Eosinophils % 0.1 Basophils % 0.2 Puncture Site Right radial ABG pH 7.53 H D ABG pCO2 at Pt Temp 31.0 L D ABG pO2 at Pt Temp 133.0 H D ABG HCO3 26.0 ABG O2 Sat (Measured) 99.2 H ABG O2 Content 13.1 L ABG Base Excess 3.7 H Francois Test Positive O2 Delivery Device Mech vent Oxygen Flow Rate 40% Vent Mode A/c Vent Rate 22 PEEP 5.0 Pressure Support Vent 400 Sodium 145 Potassium 3.5 Chloride 108 H Carbon Dioxide 30 Anion Gap 7 L BUN 36 H Creatinine 1.5 H Creat Clearance w eGFR 36.05 Random Glucose 109 H Calcium 7.3 L Phosphorus 1.9 L D Magnesium 2.3 D Total Bilirubin 0.5 AST 74 H D ALT 57 D Alkaline Phosphatase 167 H D Total Protein 5.1 L Albumin 2.6 L Active Medications Generic Name Dose Route Start Last Admin Trade Name Freq PRN Reason Stop Dose Admin Acetaminophen 1,000 mg 06/14/17 04:36 06/14/17 04:59 Ofirmev Injection - IVPB 1,000 mg Q6H PRN Administration FEVER Chlorhexidine Gluconate 1 applic 06/12/17 22:00 06/13/17 22:02 Hibiclens For Decolonization - TP 1 applic HS JAVI Administration Clotrimazole 1 applic 06/13/17 00:45 06/14/17 09:28 Lotrimin 1% Cream - TP 1 applic BID JAVI Administration Midazolam HCl 100 mg/ Sodium 100 mls @ 1 mls/hr 06/12/17 18:30 06/14/17 09:00 Chloride IVPB 0 mg/hr TITR JAVI 0 mls/hr Protocol Titration 1 MG/HR Fentanyl 500 mcg/ Sodium 100 mls @ 20 mls/hr 06/13/17 01:15 06/14/17 03:03 Chloride IVPB Not Given TITR JAVI Protocol 100 MCG/HR CEFTRIAXONE 1 G/50 ML PREMIX 50 mls @ 100 mls/hr 06/13/17 10:00 06/14/17 09: 26 Ceftriaxone 1 Gm-D5w Bag IVPB 100 mls/hr DAILY JAVI Administration Norepinephrine Bitartrate 16, 1,000 mls @ 18.75 mls/hr 06/13/17 15:15 09:15 000 mcg/ Dextrose IV 0 mcg/min TITR JAVI 0 mls/hr Protocol Titration 5 MCG/MIN Sodium Chloride 1,000 mls @ 100 mls/hr 06/14/17 14:30 Normal Saline - IV ASDIR JAVI Mupirocin 1 applic 06/12/17 22:00 06/14/17 09:27 Bactroban Ointment (For Decolonization) - NS 06/17/17 21:59 1 applic BID JAVI Administration Pantoprazole Sodium 40 mg 06/13/17 11:00 06/14/17 09:29 Protonix Iv IVPUSH 40 mg DAILY JAVI Administration Potassium Phos/Sodium Phos 1 packet 06/14/17 12:30 Phos-Nak Packet - PO BID JAVI ASSESSMENT/PLAN: 56 yo woman with hx of htn and smoking admitted to ICU for acute renal failure, respiratory distress, and high anion gap metabolic acidosis #Acute Renal Failure: Improving -patient received 2 rounds of dialysis, creatinine stabilized to 1.5 -repeat BMP 6pm -appreciate renal recommendations -keep MAP >65 -avoid nephrotoxic medications -patient making good urine -ott, strict I&Os, daily weights #Anion Gap Metabolic Acidosis: improved -salicylate, acetaminophen, ethylene glycol levels negative #AMS: improved -likely from uremic encephalopathy, Head CT negative, Utox neg -RPR, B12, EtOH negative for acute pathology #Acute hypoxic respiratory failure: improved -patient extubated today, saturating well on nasal cannula -weaning patient off pressors per ICU team #GI bleed: unlikely a GI bleed -GI consult appreciated -monitor H&H -transfuse if Hgb < 7 -Continue protonix GGT -trend CBC #sepsis: 2/2 UTI, improving -continue ceftriaxone 1gm -blood cultures grew 1 vial of staph epidermidis, repeat 2x blood cultures #L adrenal adenoma: reassess when patient is stable #FEN: -NS @ 100cc/hr -replete phosphorus today, repeat level in AM -NPO #Prophylaxis -DVT SCD -GI prophylaxis - PPI ggt #Disposition: -contine to manage in ICU Visit type - Emergency Visit Emergency Visit: No - New Patient This patient is new to me today: Yes Date on this admission: 06/14/17 - Critical Care Critical Care patient: Yes Total Critical Care Time (in minutes): 35 Critical Care Statement: The care of this patient involved high complexity decision making to prevent further life threatening deterioration of the patient 's condition and/or to evaluate & treat vital organ system(s) failure or risk of failure.
[2017-06-14 16:21] LABS: HBSAG SCREEN Negative (Negative); HEP B CORE AB, TOT Negative (Negative)
[2017-06-14] MEDS: NAPH,MB-DB/K PH,MBDB POWDER PACKET PO SCH ×2 (17:56→22:08)
[2017-06-14] MEDS: NOREPINEPHRINE BITARTRATE 16,000 MCG in DEXTROSE 5%-WATER - 984 ML IV SCH (19:19)
[2017-06-14] MEDS: MIDAZOLAM 100 MG in SODIUM CHLORIDE 100 ML IVPB SCH (19:20)
[2017-06-14 19:54] LABS: ANION GAP 10 (8-16); BLOOD UREA NITROGEN 37 mg/dL (7-18); CALCIUM 7.3 mg/dL (8.5-10.1); CHLORIDE 114 mmol/L (98-107); CO2 26 mmol/L (21-32); CREATININE 1.4 mg/dL (0.55-1.02); GLUCOSE,RANDOM 123 mg/dL (74-106); POTASSIUM 3.4 mmol/L (3.5-5.1); SODIUM 150 mmol/L (136-145)
[2017-06-14] MEDS: CHLORHEXIDINE GLUCONATE 4% CLEANSER FOR DECOLONIZATION TP SCH (22:07)
[2017-06-15 00:08] LABS: COMPLEMENT TOTAL(CH50) > 63 U/mL (42-60)
[2017-06-15] MEDS: FENTANYL INJECTION 500 MCG in SODIUM CHLORIDE 90 ML IVPB SCH (01:37)
[2017-06-15 06:28] LABS: HEMATOCRIT 27.9 % (32.4-45.2); HEMOGLOBIN 9.1 GM/dL (10.7-15.3); MCH 28.5 pg (25.7-33.7); MCHC 32.7 g/dl (32.0-36.0); MEAN CELL VOLUME 87.2 fl (80-96); MEAN PLT VOLUME 12.4 fl (7.5-11.1); PLATELET COUNT 112 K/MM3 (134-434); WHITE BLOOD COUNT 13.7 K/mm3 (4.0-10.0)
[2017-06-15 07:00] LABS: ANION GAP 11 (8-16); BLOOD UREA NITROGEN 34 mg/dL (7-18); CALCIUM 7.7 mg/dL (8.5-10.1); CHLORIDE 117 mmol/L (98-107); CO2 26 mmol/L (21-32); GLUCOSE,RANDOM 99 mg/dL (74-106); MAGNESIUM 1.5 mg/dL (1.8-2.4); POTASSIUM 3.1 mmol/L (3.5-5.1); SODIUM 154 mmol/L (136-145)
[2017-06-15 07:03] LABS: CREATININE 1.3 mg/dL (0.55-1.02); PHOSPHOROUS 1.9 mg/dL (2.5-4.9)
--- NOTE | 2017-06-15 07:36 | PN ---
Physical Exam: SUBJECTIVE: Patient seen and examined. Extubated yesterday, now on room air sating well. Yet to eat, requesting food. OBJECTIVE: Vital Signs Period Temp Pulse Resp BP Sys/Garnica Pulse Ox Last 24 Hr 97.8 F-99.8 F 58-108 16-22 91-164/50-90 98-100 Vital Signs Temp 98 F 06/15/17 06:00 Pulse 58 L 06/15/17 06:00 Resp 16 06/15/17 06:00 BP 111/90 06/15/17 06:00 Pulse Ox 98 06/14/17 20:45 Intake & Output 06/14/17 06/14/17 06/15/17 11:59 23:59 11:59 Intake Total 925 909 6924 Output Total 500 600 400 Balance 470 -50 900 Weight 79.5 kg 78.1 kg Intake: IV 299 461 4946 Levophed - 16,000 Mcg In 219 D5w - 984 ml @ 5 MCG/MIN 18.75 mls/hr IV TITR JAVI Rx#:[id number] Normal Saline - 1,000 ml 300 1200 @ 100 mls/hr IV ASDIR JAVI Rx#:[id number] Versed - 100 mg In Normal 51 Saline - 100 ml @ 1 MG/ HR 1 mls/hr IVPB TITR JAVI Rx#:[id number] IVPB 700 250 Oral 100 Tube Irrigant 0 Output: Urine 500 600 400 Ott 500 600 400 Other: Voiding Method Indwelling Catheter Indwelling Catheter Bowel Movement No Yes Yes # Bowel Movements 1 2 Weight Measurement Method Built in [facility] Built in [facility] GENERAL: The patient is awake, alert, and fully oriented, in no acute distress. HEAD: Normal with no signs of trauma. EYES: Bilaterally reactive pupils ENT: oropharynx clear without exudates, moist mucous membranes on RA. NECK: Trachea midline, full range of motion, supple. LUNGS: vesicular breath sounds equal, no accessory muscle use. HEART: Regular rate and rhythm, S1, S2 ABDOMEN: Soft, nontender, nondistended, normoactive bowel sounds, EXTREMITIES: 2+ pulses, warm, well-perfused, no edema. NEUROLOGICAL: AAox3, Normal speech, gait not observed. PSYCH: Normal mood, normal affect. Lines: R trialysis catheter, ott, LUE periph line Laboratory Results - last 24 hr 0106/13/17 06/14/17 01:30 01:30 05:25 WBC RBC Hgb Hct MCV MCH MCHC RDW Plt Count MPV Sodium 145 Potassium 3.5 Chloride 108 H Carbon Dioxide 30 Anion Gap 7 L BUN 36 H Creatinine 1.5 H Creat Clearance w eGFR 36.05 Random Glucose 109 H Calcium 7.3 L Phosphorus 1.9 L D Magnesium 2.3 D Total Bilirubin 0.5 AST 74 H D ALT 57 D Alkaline Phosphatase 167 H D Total Protein 5.1 L Albumin 2.6 L Free T4 DEANDRE Screen Negative Tot Complement (CH50) > 63 H Hepatitis A Ab Total Negative Hep Bs Antigen Negative Hep Bs Antibody Non reactive Hep B Core Total Ab Negative Hep B Core IgM Ab Hepatitis C Antibody <0.1 06/14/17 06/14/17 06/15/17 05:25 18:40 05:15 WBC RBC Hgb Hct MCV MCH MCHC RDW Plt Count MPV Sodium 150 H 154 H Potassium 3.4 L 3.1 L Chloride 114 H 117 H Carbon Dioxide 26 26 Anion Gap 10 11 BUN 37 H 34 H Creatinine 1.4 H 1.3 H Creat Clearance w eGFR Random Glucose 123 H 99 Calcium 7.3 L 7.7 L Phosphorus 1.9 L Magnesium 1.5 L D Total Bilirubin AST ALT Alkaline Phosphatase Total Protein Albumin Free T4 1.06 DEANDRE Screen Tot Complement (CH50) Hepatitis A Ab Total Hep Bs Antigen Hep Bs Antibody Hep B Core Total Ab Hep B Core IgM Ab Negative Hepatitis C Antibody 06/15/17 06/15/17 05:15 05:15 WBC 13.7 H RBC 3.20 L Hgb 9.1 L Hct 27.9 L MCV 87.2 MCH 28.5 MCHC 32.7 RDW 14.0 Plt Count 112 L MPV 12.4 H Sodium Potassium Chloride Carbon Dioxide Anion Gap BUN Creatinine Creat Clearance w eGFR Random Glucose Calcium Phosphorus Magnesium Total Bilirubin AST ALT Alkaline Phosphatase Total Protein Albumin Cancelled Free T4 DEANDRE Screen Tot Complement (CH50) Hepatitis A Ab Total Hep Bs Antigen Hep Bs Antibody Hep B Core Total Ab Hep B Core IgM Ab Hepatitis C Antibody Microbiology 06/12/17 17:30 Urine - Urine - Catheterized Urine Culture - Final NO GROWTH OBTAINED Active Medications Generic Name Dose Route Start Last Admin Trade Name Freq PRN Reason Stop Dose Admin Acetaminophen 1,000 mg 06/14/17 04:36 06/14/17 04:59 Ofirmev Injection - IVPB 1,000 mg Q6H PRN Administration FEVER Chlorhexidine Gluconate 1 applic 06/12/17 22:00 06/14/17 22:07 Hibiclens For Decolonization - TP 1 applic HS JAVI Administration Clotrimazole 1 applic 06/13/17 00:45 06/14/17 22:07 Lotrimin 1% Cream - TP 1 applic BID JAVI Administration Midazolam HCl 100 mg/ Sodium 100 mls @ 1 mls/hr 06/12/17 18:30 06/14/17 19:20 Chloride IVPB Not Given TITR JAVI Protocol 1 MG/HR Fentanyl 500 mcg/ Sodium 100 mls @ 20 mls/hr 06/13/17 01:15 06/15/17 01:37 Chloride IVPB Not Given TITR JAVI Protocol 100 MCG/HR CEFTRIAXONE 1 G/50 ML PREMIX 50 mls @ 100 mls/hr 06/13/17 10:00 06/14/17 09: 26 Ceftriaxone 1 Gm-D5w Bag IVPB 100 mls/hr DAILY JAVI Administration Norepinephrine Bitartrate 16, 1,000 mls @ 18.75 mls/hr 06/13/17 15:15 19:19 000 mcg/ Dextrose IV Not Given TITR JAVI Protocol 5 MCG/MIN Sodium Chloride 1,000 mls @ 100 mls/hr 06/14/17 14:30 06/14/17 17:56 Normal Saline - IV 100 mls/hr ASDIR JAVI Administration Magnesium Oxide 400 mg 06/15/17 10:00 Mag-Ox - PO BID JAVI Mupirocin 1 applic 06/12/17 22:00 06/14/17 22:06 Bactroban Ointment (For Decolonization) - NS 06/17/17 21:59 1 applic BID JAVI Administration Pantoprazole Sodium 40 mg 06/13/17 11:00 06/14/17 09:29 Protonix Iv IVPUSH 40 mg DAILY JAVI Administration Potassium Chloride 20 meq 06/15/17 07:30 Potassium Chloride 20 Meq Premix Ivpb - IVPB 06/15/17 09:31 Q60M JAVI Potassium Chloride 40 meq 06/15/17 10:00 Potassium Chloride Oral Liquid PO BID JAVI Potassium Phos/Sodium Phos 1 packet 06/15/17 14:00 Phos-Nak Packet - PO TID JAVI ASSESSMENT/PLAN: 56 yo F with PMhx of HTN presented with AMS, and acute respiratory failure with ZANE and metabolic acidosis and ZANE, now extubated Neuro: AMS- likely metabolic 2/2 to ZANE, patient had 2 dialysis sessions AAO x3 , extubated, sating well on RA PT Pulm: Acute respiratory failure s/p extubation yesterday Mucomyst Cardio: Hx of HTN hypotensive- off pressors monitor Renal/ Lytes/Fluids/Lines: Metabolic Acidosis likely secondary to ZANE r/O CKD s/p dialysis BUN/Cr- improved Hypernatremia- change from normal saline to 1/2 normal saline Making urine hypomagnesemia- replete Hypophosphatemia- replete Maintain ott for Is and Os RIJ trialysis catheter- for removal , ott- d/c GI: History of blood around nose/ face preintubation No elin bleeding noted Cont iv Protonix 40mg daily Renal diet Tabs bacid ID: Severe sepsis with bacteremia with likely staph coag -ve Continue ceftriaxone 1g daily Follow cx- urine culture- no growth Dispo: For transfer to med-surg Visit type - Emergency Visit Emergency Visit: Yes ED Registration Date: 06/12/17 Care time: The patient presented to the Emergency Department on the above date and was hospitalized for further evaluation of their emergent condition. - New Patient This patient is new to me today: No - Critical Care Critical Care patient: Yes Total Critical Care Time (in minutes): 35 Critical Care Statement: The care of this patient involved high complexity decision making to prevent further life threatening deterioration of the patient 's condition and/or to evaluate & treat vital organ system(s) failure or risk of failure. - Discharge Referral Referred to [facility] Med P.C.: No
[2017-06-15] MEDS ORDERED: SODIUM CHLORIDE 0.45% 1,000 ML IV SCH ×2 (08:00→21:09)
[2017-06-15 08:09] LABS: ALBUMIN 2.5 g/dl (3.4-5.0); ALK PHOS 157 U/L (45-117); BILIRUBIN,DIRECT < 0.2 mg/dL (0.0-0.2); BILIRUBIN,TOTAL 0.4 mg/dL (0.2-1.0); SGOT/AST 54 U/L (15-37); SGPT/ALT 55 U/L (12-78); TOT PROT 5.1 g/dl (6.4-8.2)
[2017-06-15 08:10] LABS: ALBUMIN 2.6 g/dl (3.4-5.0)
[2017-06-15] MEDS: PANTOPRAZOLE SODIUM 40 MG VIAL IVPUSH SCH (09:00)
[2017-06-15] MEDS: POTASSIUM CHLORIDE 20 MEQ PREMIX IVPB 100 ML IVPB SCH ×3 (09:29→13:51)
[2017-06-15] MEDS: CEFTRIAXONE 1 G/50 ML PREMIX 50 ML IVPB SCH (09:33)
[2017-06-15] MEDS ORDERED: POTASSIUM CHLORIDE ORAL LIQUID 20 MEQ/15 ML PO SCH (10:00)
[2017-06-15] MEDS ORDERED: MAGNESIUM OXIDE 400 MG TABLET (FP) PO SCH (10:00)
--- NOTE | 2017-06-15 10:16 | PN ---
Progress Note (short form) - Note Progress Note: Renal follow up for ZANE/Emergent dialysis Pt seen and examined in the ICU extubated yesterday awake and alert denies any toxic ingestions denies any NSAID use was on ACEi at home no kidney stones or hx of CKD no diarrhea prior to admission pt is making urine Vital Signs Temperature 98 F 06/15/17 06:00 Pulse Rate 96 H 06/15/17 09:33 Respiratory Rate 16 06/15/17 09:00 Blood Pressure 111/90 06/15/17 06:00 O2 Sat by Pulse Oximetry (%) 97 06/15/17 09:33 Intake & Output 06/12/17 06/13/17 06/14/17 06/15/17 23:59 23:59 23:59 23:59 Intake Total 3316 1520 1300 Output Total 100 2250 1100 400 Balance -100 1066 420 900 Weight 90.718 kg 77.1 kg 79.5 kg 78.1 kg awake and alert on vent via ET tube CTA soft NT/ND Abd no LE edema ott in place CBC, BMP 06/15/17 05:15 06/15/17 05:15 Current Medications Acetaminophen (Ofirmev Injection -) 1,000 mg IVPB Q6H PRN PRN Reason: FEVER Last Admin: 06/14/17 04:59 Dose: 1,000 mg Chlorhexidine Gluconate (Hibiclens For Decolonization -) 1 applic TP HS JAVI Last Admin: 06/14/17 22:07 Dose: 1 applic Clotrimazole (Lotrimin 1% Cream -) 1 applic TP BID JAVI Last Admin: 06/14/17 22:07 Dose: 1 applic Midazolam HCl 100 mg/ Sodium (Chloride) 100 mls @ 1 mls/hr IVPB TITR JAVI; 1 MG/ HR PRN Reason: Protocol Last Admin: 06/14/17 19:20 Dose: Not Given Fentanyl 500 mcg/ Sodium (Chloride) 100 mls @ 20 mls/hr IVPB TITR JAVI; 100 MCG/ HR PRN Reason: Protocol Last Admin: 06/15/17 01:37 Dose: Not Given CEFTRIAXONE 1 G/50 ML PREMIX (Ceftriaxone 1 Gm-D5w Bag) 50 mls @ 100 mls/hr IVPB DAILY JAVI Last Admin: 06/15/17 09:33 Dose: 100 mls/hr Norepinephrine Bitartrate 16, (000 mcg/ Dextrose) 1,000 mls @ 18.75 mls/hr IV TITR JAVI; 5 MCG/MIN PRN Reason: Protocol Last Admin: 06/14/17 19:19 Dose: Not Given Sodium Chloride (1/2 Normal Saline) 1,000 mls @ 100 mls/hr IV ASDIR [facility] Last Admin: 06/15/17 08:17 Dose: 100 mls/hr Magnesium Oxide (Mag-Ox -) 400 mg PO BID [facility] Mupirocin (Bactroban Ointment (For Decolonization) -) 1 applic NS BID [facility] Stop: 06/17/17 21:59 Last Admin: 06/14/17 22:06 Dose: 1 applic Pantoprazole Sodium (Protonix Iv) 40 mg IVPUSH DAILY [facility] Last Admin: 06/15/17 09:00 Dose: 40 mg Potassium Chloride (Potassium Chloride 20 Meq Premix Ivpb -) 20 meq IVPB Q60M [facility] Stop: 06/15/17 11:01 Last Admin: 06/15/17 09:29 Dose: 20 meq Potassium Chloride (Potassium Chloride Oral Liquid) 40 meq PO BID [facility] Potassium Phos/Sodium Phos (Phos-Nak Packet -) 1 packet PO TID [facility] 56 year old woman with PMhx of Hypertension who presented from home with AMS and found to have renal failure and metabolic acidosis. #Acute Renal Failure with encephalopathy and severe metabolic acidosis Pt with significant improvement in renal function up to this time no further dialysis indicated etiology of renal failure likely volume depletion +/- glomerular hypotension from ACEi continue hypotonic saline as pt with elevated serum na oral water intake as tolerated keep MAP > 65 can d/c Ott trend BUN/Cr and electrolytes Methanol and Ethylene Glycol levels pending DEANDRE negative, Hepatitis negative ANCAs pending Bill Oliveros DO
[2017-06-15] MEDS ORDERED: MAGNESIUM SULF 50% (8.12 MEQ/2 ML-1 GM VIAL) IVPB ONE (10:17)
[2017-06-15] MEDS: MUPIROCIN 2% TOPICAL OINTMENT FOR DECOLONIZATION NS SCH (10:47)
[2017-06-15] MEDS: CLOTRIMAZOLE 1% CREAM 15 GM TUBE TP SCH ×2 (10:47→22:36)
--- NOTE | 2017-06-15 11:29 | PN ---
Teaching Attending Note Name of Resident: Katy Encarnacion ATTENDING PHYSICIAN STATEMENT I saw and evaluated the patient. I reviewed the resident's note and discussed the case with the resident. I agree with the resident's findings and plan as documented. SUBJECTIVE: Pt seen and examined in the ICU. Extubated yesterday without incident. Denies shortness of breath. Making good urine. Voice hoarse. OBJECTIVE: Last Vital Signs Temp Pulse Resp BP Pulse Ox 98.5 F 78 22 135/76 97 06/15/17 10:00 06/15/17 10:00 06/15/17 10:00 06/15/17 10:00 06/15/17 09:33 Intake & Output 06/12/17 06/13/17 06/14/17 06/15/17 23:59 23:59 23:59 23:59 Intake Total 3316 1520 1300 Output Total 100 2250 1100 400 Balance -100 1066 420 900 Weight 90.718 kg 77.1 kg 79.5 kg 78.1 kg Gen: NAD at rest Heart: RRR Lung: decreased breath sounds at the bases Abd: soft, nontender Ext: no edema CBC, BMP 06/15/17 05:15 06/15/17 05:15 Active Medications Acetaminophen (Ofirmev Injection -) 1,000 mg IVPB Q6H PRN PRN Reason: FEVER Last Admin: 06/14/17 04:59 Dose: 1,000 mg Chlorhexidine Gluconate (Hibiclens For Decolonization -) 1 applic TP HS [facility] Last Admin: 06/14/17 22:07 Dose: 1 applic Clotrimazole (Lotrimin 1% Cream -) 1 applic TP BID [facility] Last Admin: 06/15/17 10:47 Dose: 1 applic Midazolam HCl 100 mg/ Sodium (Chloride) 100 mls @ 1 mls/hr IVPB TITR JAVI; 1 MG/ HR PRN Reason: Protocol Last Admin: 06/14/17 19:20 Dose: Not Given Fentanyl 500 mcg/ Sodium (Chloride) 100 mls @ 20 mls/hr IVPB TITR JAVI; 100 MCG/ HR PRN Reason: Protocol Last Admin: 06/15/17 01:37 Dose: Not Given CEFTRIAXONE 1 G/50 ML PREMIX (Ceftriaxone 1 Gm-D5w Bag) 50 mls @ 100 mls/hr IVPB DAILY [facility] Last Admin: 06/15/17 09:33 Dose: 100 mls/hr Norepinephrine Bitartrate 16, (000 mcg/ Dextrose) 1,000 mls @ 18.75 mls/hr IV TITR JAVI; 5 MCG/MIN PRN Reason: Protocol Last Admin: 06/14/17 19:19 Dose: Not Given Sodium Chloride (1/2 Normal Saline) 1,000 mls @ 100 mls/hr IV ASDIR [facility] Last Admin: 06/15/17 08:17 Dose: 100 mls/hr Magnesium Sulfate/Dextrose (Magnesium 1gm/D5w -) 1 gm in 100 mls @ 100 mls/hr IVPB Q1H [facility] Stop: 06/15/17 12:44 Magnesium Chloride (Slow-Mag -) 64 mg PO DAILY [facility] Mupirocin (Bactroban Ointment (For Decolonization) -) 1 applic NS BID [facility] Stop: 06/17/17 21:59 Last Admin: 06/15/17 10:47 Dose: 1 applic Pantoprazole Sodium (Protonix Iv) 40 mg IVPUSH DAILY [facility] Last Admin: 06/15/17 09:00 Dose: 40 mg Potassium Chloride (Potassium Chloride Oral Liquid) 40 meq PO BID [facility] Last Admin: 06/15/17 10:36 Dose: 40 meq Potassium Phos/Sodium Phos (Phos-Nak Packet -) 1 packet PO TID [facility] ASSESSMENT AND PLAN: Acute Respiratory Failure Acute Kidney Injury requiring emergent HD Uremic Encephalopathy improving Severe Metabolic Acidosis resolving r/o UTI HTN - continue IVF - monitor urine output, creatinine - replete lytes - complete empiric antibiotics - O2 to keep SpO2 >90% - d/c HD catheter - DVT/GI prophylaxis - can monitor on floor critical care time spent in reviewing chart, evaluating patient and formulating plan 35 min
--- NOTE | 2017-06-15 13:16 | PN ---
Teaching Attending Note Name of Resident: Noah Alcazar ATTENDING PHYSICIAN STATEMENT I saw and evaluated the patient. I reviewed the resident's note and discussed the case with the resident. I agree with the resident's findings and plan as documented. SUBJECTIVE: No fever or chills, feels tired. has no abd pain, denied any dysuria in past week , no fever at home. denied dierrhea OBJECTIVE: awake , alert , and cooperative lungs : minimal crackles at L base CV: RRR Abd: soft, Nt, ND , NL BS Ext : no edema. DP , 2+ b/l Assessment/Plan: Unfortunate 56 y/o lady with h/o HTN who presented with AMS and was found to have ZANE , s/p intubation and HD . 1- ZANE and severe metabolic acidosis needing emergency HD. improved . posible etiology is severe hypoveolemia - cont IVF 1/2 NS - follow up pending serology ANCA . - hep B ( never vaccinated or infected,) , Neg Hep c , and elevated complement 3- Severe sepsis : possible UTI - follow urine cx - blood cx with one set positive for coag Neg staph. repeat blood cx. likely contamination. hold of on vanco for now - cont ceftriaxone 5- Hypernatremia du eot dehydration , cont 1/2 NS SCds , heparin sq. Tx to med surg
[2017-06-15] MEDS: MAGNESIUM 1GM/D5W - 1 GM/100 ML IVPB IVPB SCH ×2 (13:44→14:37)
[2017-06-15] MEDS ORDERED: NAPH,MB-DB/K PH,MBDB POWDER PACKET PO SCH (14:00)
[2017-06-15] MEDS: LACTOBACILLUS ACIDOPHILUS 1 EACH TAB (FP) PO SCH (14:37)
[2017-06-15] MEDS: MAGNESIUM CL 64 MG TABLET.SA PO SCH (15:09)
--- NOTE | 2017-06-15 15:21 | PN ---
Physical Exam: SUBJECTIVE: Patient seen and examined at bedside. She is more awake and alert compared to yesterday. She was extubated yesterday and still has hoarseness in her voice when she speaks. No acute overnight events. Patient had 3 soft, brown bowel movements overnight. Currently, patient states that she has non-specific abdominal pain, but is unable to localize it. States that she is mildly short of breath. Denies chest pain, nausea, vomiting, fevers, chills. Patient is unable to recall what occurred prior to her arriving at the hospital. Patient's PCP is Dr. Knutson at [facility]. OBJECTIVE: Vital Signs Period Temp Pulse Resp BP Sys/Garnica Pulse Ox Last 24 Hr 97.8 F-98.5 F 58-96 16-22 91-164/50-90 97-98 GENERAL: The patient is awake, alert, and oriented x3. Mild distress. HEAD: Normal with no signs of trauma. EYES: PERRL, extraocular movements intact, sclera anicteric, conjunctiva clear. No ptosis. ENT: Ears normal, nares patent, dry mucous membranes. NECK: Trachea midline, full range of motion, supple. LUNGS: Breath sounds equal, scattered crackles and rales noted on exam HEART: Regular rate and rhythm, S1, S2 without murmur, rub or gallop. ABDOMEN: Soft, nontender, nondistended, normoactive bowel sounds, no guarding, no rebound, no hepatosplenomegaly, no masses. EXTREMITIES: 2+ pulses, warm, well-perfused, no edema. NEUROLOGICAL: Cranial nerves II through XII grossly intact SKIN: Warm, dry, normal turgor, no rashes or lesions noted Laboratory Results - last 24 hr 06/12/17 06/13/17 06/13/17 16:58 01:30 01:30 WBC RBC Hgb Hct MCV MCH MCHC RDW Plt Count MPV Sodium Potassium Chloride Carbon Dioxide Anion Gap BUN Creatinine Random Glucose Calcium Phosphorus Magnesium Total Bilirubin Direct Bilirubin AST ALT Alkaline Phosphatase Total Protein Albumin Free T4 DEANDRE Screen Negative Tot Complement (CH50) > 63 H Hepatitis A Ab Total Negative Hep Bs Antigen Negative Hep Bs Antibody Non reactive Hep B Core Total Ab Negative Hep B Core IgM Ab Hepatitis C Antibody <0.1 Crossmatch See Detail 06/14/17 06/14/17 06/15/17 05:25 18:40 05:15 WBC RBC Hgb Hct MCV MCH MCHC RDW Plt Count MPV Sodium 150 H 154 H Potassium 3.4 L 3.1 L Chloride 114 H 117 H Carbon Dioxide 26 26 Anion Gap 10 11 BUN 37 H 34 H Creatinine 1.4 H 1.3 H Random Glucose 123 H 99 Calcium 7.3 L 7.7 L Phosphorus 1.9 L Magnesium 1.5 L D Total Bilirubin Direct Bilirubin AST ALT Alkaline Phosphatase Total Protein Albumin 2.6 L Free T4 1.06 DEANDRE Screen Tot Complement (CH50) Hepatitis A Ab Total Hep Bs Antigen Hep Bs Antibody Hep B Core Total Ab Hep B Core IgM Ab Negative Hepatitis C Antibody Crossmatch 06/15/17 06/15/17 06/15/17 05:15 05:15 05:15 WBC 13.7 H RBC 3.20 L Hgb 9.1 L Hct 27.9 L MCV 87.2 MCH 28.5 MCHC 32.7 RDW 14.0 Plt Count 112 L MPV 12.4 H Sodium Potassium Chloride Carbon Dioxide Anion Gap BUN Creatinine Random Glucose Calcium Phosphorus Magnesium Total Bilirubin 0.4 Direct Bilirubin < 0.2 AST 54 H D ALT 55 Alkaline Phosphatase 157 H D Total Protein 5.1 L Albumin Cancelled 2.5 L Free T4 DEANDRE Screen Tot Complement (CH50) Hepatitis A Ab Total Hep Bs Antigen Hep Bs Antibody Hep B Core Total Ab Hep B Core IgM Ab Hepatitis C Antibody Crossmatch Active Medications Generic Name Dose Route Start Last Admin Trade Name Freq PRN Reason Stop Dose Admin Acetaminophen 1,000 mg 06/14/17 04:36 06/14/17 04:59 Ofirmev Injection - IVPB 1,000 mg Q6H PRN Administration FEVER Acetylcysteine 1 mg 06/15/17 12:15 Mucomyst 20 Oral / Inh Use Only* PO Q4H JAVI Chlorhexidine Gluconate 1 applic 06/12/17 22:00 06/14/17 22:07 Hibiclens For Decolonization - TP 1 applic HS JAVI Administration Clotrimazole 1 applic 06/13/17 00:45 06/15/17 10:47 Lotrimin 1% Cream - TP 1 applic BID JAVI Administration Midazolam HCl 100 mg/ Sodium 100 mls @ 1 mls/hr 06/12/17 18:30 06/14/17 19:20 Chloride IVPB Not Given TITR JAVI Protocol 1 MG/HR Fentanyl 500 mcg/ Sodium 100 mls @ 20 mls/hr 06/13/17 01:15 06/15/17 01:37 Chloride IVPB Not Given TITR JAVI Protocol 100 MCG/HR CEFTRIAXONE 1 G/50 ML PREMIX 50 mls @ 100 mls/hr 06/13/17 10:00 06/15/17 09: 33 Ceftriaxone 1 Gm-D5w Bag IVPB 100 mls/hr DAILY JAVI Administration Norepinephrine Bitartrate 16, 1,000 mls @ 18.75 mls/hr 06/13/17 15:15 19:19 000 mcg/ Dextrose IV Not Given TITR JAVI Protocol 5 MCG/MIN Sodium Chloride 1,000 mls @ 100 mls/hr 06/15/17 08:00 06/15/17 08:17 1/2 Normal Saline IV 100 mls/hr ASDIR JAVI Administration Lactobacillus Acidophilus 1 tab 06/15/17 12:00 06/15/17 14:37 Bacid - PO 1 tab DAILY JAVI Administration Magnesium Chloride 64 mg 06/15/17 11:00 06/15/17 15:09 Slow-Mag - PO 64 mg DAILY JAVI Administration Mupirocin 1 applic 06/12/17 22:00 06/15/17 10:47 Bactroban Ointment (For Decolonization) - NS 06/17/17 21:59 1 applic BID JAVI Administration Pantoprazole Sodium 40 mg 06/13/17 11:00 06/15/17 09:00 Protonix Iv IVPUSH 40 mg DAILY JAVI Administration Potassium Chloride 40 meq 06/15/17 10:00 06/15/17 10:36 Potassium Chloride Oral Liquid PO 40 meq BID JAVI Administration Potassium Phos/Sodium Phos 1 packet 06/15/17 14:00 06/15/17 14:42 Phos-Nak Packet - PO 1 packet TID JAVI Administration CBC, BMP 06/15/17 05:15 06/15/17 05:15 ASSESSMENT/PLAN: 56 yo woman with hx of htn and smoking admitted to ICU for acute renal failure, respiratory distress, and high anion gap metabolic acidosis #Acute Renal Failure: Improving, likely 2/2 volume depletion +/- glomerular hypotension from ACEi -patient received 2 rounds of dialysis previously, creatinine has since stabilized, no more dialysis indicated per renal -repeat BMP in AM -appreciate renal recommendations -d/c ott -1/2 NS @ 100cc/hr for hypernatremia -keep MAP >65 -avoid nephrotoxic medications -patient making good urine -strict I&Os, daily weights #Anion Gap Metabolic Acidosis: improved -salicylate, acetaminophen, ethylene glycol levels negative -repleted lytes today #AMS: improved -likely from uremic encephalopathy, Head CT negative, Utox neg -RPR, B12, EtOH negative for acute pathology #Acute hypoxic respiratory failure: improved -saturating well on nasal cannula -patient off pressures and maintaining her pressures #GI bleed: unlikely a GI bleed -GI consult appreciated -monitor H&H -transfuse if Hgb < 7 -Continue protonix IV push -trend CBC #sepsis: 2/2 UTI, improving -continue ceftriaxone 1gm -repeat blood cultures negative #L adrenal adenoma: reassess when patient is stable #FEN: -1/2 NS @ 100cc/hr -replete lytes as necessary in AM -Renal, sodium controlled diet #Prophylaxis -DVT SCD -GI prophylaxis - PPI ggt #Disposition: -OK to transfer to med-surg -full code -need to contact PCP tomorow Visit type - Emergency Visit Emergency Visit: No - New Patient This patient is new to me today: No - Critical Care Critical Care patient: Yes Total Critical Care Time (in minutes): 35 Critical Care Statement: The care of this patient involved high complexity decision making to prevent further life threatening deterioration of the patient 's condition and/or to evaluate & treat vital organ system(s) failure or risk of failure.
[2017-06-15] MEDS: ACETYLCYSTEINE 20% 200MG/ML 4 ML VIAL *FOR ORAL / INH USE ONLY NEB SCH (17:59)
[2017-06-15] MEDS: ALBUTEROL SO4 0.083% IH SOL 2.5 MG/3 ML VIAL.NEB. NEB SCH (17:59)
[2017-06-15] MEDS ORDERED: ACETAMINOPHEN 1000 MG/100 ML VIAL (NON FORMULARY) IVPB PRN (21:09)
[2017-06-15] MEDS ORDERED: CHLORHEXIDINE GLUCONATE 4% CLEANSER FOR DECOLONIZATION TP SCH (22:00)
[2017-06-15] MEDS ORDERED: MUPIROCIN 2% TOPICAL OINTMENT FOR DECOLONIZATION NS SCH (22:00)
[2017-06-15] MEDS: POTASSIUM CHLORIDE ORAL LIQUID 20 MEQ/15 ML PO SCH (22:35)
[2017-06-15] MEDS: NAPH,MB-DB/K PH,MBDB POWDER PACKET PO SCH (22:35)
[2017-06-16 00:07] LABS: ATYPICAL pANCA <1:20 titer (Neg:<1:20); C-ANCA <1:20 titer (Neg:<1:20); P-ANCA <1:20 titer (Neg:<1:20); PROTEINASE-3 ANTIBODY <3.5 U/mL (0.0-3.5)
[2017-06-16] MEDS ORDERED: ONDANSETRON 4 MG/2 ML VIAL IVPUSH ONE (02:24)
[2017-06-16] MEDS: NAPH,MB-DB/K PH,MBDB POWDER PACKET PO SCH ×3 (06:24→21:09)
[2017-06-16] MEDS: ACETYLCYSTEINE 20% 200MG/ML 30 ML VIAL *FOR ORAL / INH USE ONLY PO SCH (07:12)
[2017-06-16] MEDS: NOREPINEPHRINE BITARTRATE 16,000 MCG in DEXTROSE 5%-WATER - 984 ML IV SCH (07:13)
[2017-06-16] MEDS: ACETYLCYSTEINE 20% 200MG/ML 4 ML VIAL *FOR ORAL / INH USE ONLY NEB SCH ×3 (07:15→12:13)
[2017-06-16] MEDS: ALBUTEROL SO4 0.083% IH SOL 2.5 MG/3 ML VIAL.NEB. NEB SCH ×3 (07:15→12:13)
--- NOTE | 2017-06-16 07:32 | PN ---
Physical Exam: SUBJECTIVE: Patient seen and examined at bedside. She is more awake and alert, is able to answer questions. States that she does have a history of pituitary adenoma. States that before she came to the hospital, all she remembers is that she had severe abdominal pain. OBJECTIVE: Vital Signs Period Temp Pulse Resp BP Sys/Garnica Pulse Ox Last 24 Hr 98.5 F-98.8 F 78-96 16-22 101-143/63-87 96-97 GENERAL: The patient is awake, alert, and oriented x3. No distress. HEAD: Normal with no signs of trauma. EYES: PERRL, extraocular movements intact, sclera anicteric, conjunctiva clear. No ptosis. ENT: Ears normal, nares patent, dry mucous membranes. NECK: Trachea midline, full range of motion, supple. LUNGS: Breath sounds equal, clear to auscultation HEART: Regular rate and rhythm, S1, S2 without murmur, rub or gallop. ABDOMEN: Soft, nontender, nondistended, normoactive bowel sounds, no guarding, no rebound, no hepatosplenomegaly, no masses. EXTREMITIES: 2+ pulses, warm, well-perfused, no edema. NEUROLOGICAL: Cranial nerves II through XII grossly intact SKIN: Warm, dry, normal turgor, no rashes or lesions noted Laboratory Results - last 24 hr 06/12/17 06/13/17 06/13/17 16:58 00:01 01:30 Sodium Potassium Chloride Carbon Dioxide Anion Gap BUN Creatinine Random Glucose Calcium Phosphorus Magnesium Total Bilirubin Direct Bilirubin AST ALT Alkaline Phosphatase Total Protein Albumin Free T4 Free T3 Ethylene Glycol None detected Methyl Alcohol Level c-ANCA <1:20 Proteinase 3 (PR3) <3.5 p-ANCA <1:20 Atypical p-ANCA <1:20 Myeloperoxidase Ab <9.0 Blood Type O POSITIVE Antibody Screen Negative Crossmatch See Detail 06/13/17 06/15/17 06/15/17 01:30 05:15 05:15 Sodium 154 H Potassium 3.1 L Chloride 117 H Carbon Dioxide 26 Anion Gap 11 BUN 34 H Creatinine 1.3 H Random Glucose 99 Calcium 7.7 L Phosphorus 1.9 L Magnesium 1.5 L D Total Bilirubin Direct Bilirubin AST ALT Alkaline Phosphatase Total Protein Albumin 2.6 L Free T4 1.06 Free T3 2.0 Ethylene Glycol Methyl Alcohol Level Negative c-ANCA Proteinase 3 (PR3) p-ANCA Atypical p-ANCA Myeloperoxidase Ab Blood Type Antibody Screen Crossmatch 06/15/17 06/15/17 05:15 05:15 Sodium Potassium Chloride Carbon Dioxide Anion Gap BUN Creatinine Random Glucose Calcium Phosphorus Magnesium Total Bilirubin 0.4 Direct Bilirubin < 0.2 AST 54 H D ALT 55 Alkaline Phosphatase 157 H D Total Protein 5.1 L Albumin Cancelled 2.5 L Free T4 Free T3 Ethylene Glycol Methyl Alcohol Level c-ANCA Proteinase 3 (PR3) p-ANCA Atypical p-ANCA Myeloperoxidase Ab Blood Type Antibody Screen Crossmatch Active Medications Generic Name Dose Route Start Last Admin Trade Name Freq PRN Reason Stop Dose Admin Acetaminophen 1,000 mg 06/15/17 21:09 Ofirmev Injection - IVPB Q6H PRN FEVER Acetylcysteine 200 mg 06/15/17 18:00 06/16/17 07:15 Mucomyst 20 Oral / Inh Use Only* NEB 200 mg QIDR JAVI Administration Albuterol Sulfate 1 amp 06/15/17 18:00 06/16/17 07:15 Ventolin 0.083% Nebulizer Soln - NEB 1 amp QIDR JAVI Administration Clotrimazole 1 applic 06/15/17 22:00 06/15/17 22:36 Lotrimin 1% Cream - TP 1 applic BID JAVI Administration CEFTRIAXONE 1 G/50 ML PREMIX 50 mls @ 100 mls/hr 06/16/17 10:00 Ceftriaxone 1 Gm-D5w Bag IVPB DAILY JAVI Sodium Chloride 1,000 mls @ 100 mls/hr 06/15/17 21:09 06/16/17 02:24 1/2 Normal Saline IV 100 mls/hr ASDIR JAVI Administration Lactobacillus Acidophilus 1 tab 06/15/17 12:00 06/15/17 14:37 Bacid - PO 1 tab DAILY JAVI Administration Magnesium Chloride 64 mg 06/15/17 11:00 06/15/17 15:09 Slow-Mag - PO 64 mg DAILY JAVI Administration Pantoprazole Sodium 40 mg 06/16/17 10:00 Protonix Iv IVPUSH DAILY JAVI Potassium Chloride 40 meq 06/15/17 22:00 06/15/17 22:35 Potassium Chloride Oral Liquid PO 40 meq BID JAVI Administration Potassium Phos/Sodium Phos 1 packet 06/15/17 22:00 06/16/17 06:24 Phos-Nak Packet - PO Not Given TID JAVI ASSESSMENT/PLAN: 56 yo woman with hx of htn and smoking admitted to ICU for acute renal failure, respiratory distress, and high anion gap metabolic acidosis #Acute Renal Failure: resolved, creatinine 1.1 today, was likely 2/2 hypoperfusion to kidney from sepsis/UTI -patient received 2 rounds of dialysis previously on wednesday, creatinine has since stabilized, no more dialysis indicated per renal -repeat BMP in AM -appreciate renal recommendations -continue 1/2 NS @ 100cc/hr, reassess electrolytes and volume status in AM -keep MAP >65 -avoid nephrotoxic medications -patient making good urine -continue ceftriaxone #Anion Gap Metabolic Acidosis: improved -salicylate, acetaminophen, ethylene glycol levels negative -repleted lytes today #AMS: improved -likely from uremic encephalopathy, Head CT negative, Utox neg -RPR, B12, EtOH negative for acute pathology #Acute hypoxic respiratory failure: improved -saturating well on room air -patient off pressures and maintaining her pressures #Sepsis: 2/2 UTI, improving -continue ceftriaxone 1gm, day 4 -blood cultures negative #L adrenal adenoma: reassess when patient is stable #FEN: -1/2 NS @ 100cc/hr -replete lytes as necessary in AM -Renal, sodium controlled diet #Prophylaxis -DVT SCD -GI prophylaxis - PPI ggt #Disposition: -continue to monitor on med-surg -full code -need to contact PCP tomorow Visit type - Emergency Visit Emergency Visit: No - New Patient This patient is new to me today: No - Critical Care Critical Care patient: No
[2017-06-16 09:07] LABS: BASO % 0.2 % (0-2.0); EOS % 0.3 % (0-4.5); HEMOGLOBIN 9.3 GM/dL (10.7-15.3); LYMPH % 15.1 % (8-40); MCH 28.1 pg (25.7-33.7); MEAN CELL VOLUME 87.8 fl (80-96); MEAN PLT VOLUME 11.8 fl (7.5-11.1); MONO % 9.9 % (3.8-10.2); NEUT % 74.5 % (42.8-82.8); PLATELET COUNT 106 K/MM3 (134-434); RDW 14.1 % (11.6-15.6); WHITE BLOOD COUNT 16.4 K/mm3 (4.0-10.0)
[2017-06-16] MEDS ORDERED: PT OWN MED DRAWER 7, Y5N ONE ×2 (09:16→15:22)
[2017-06-16 09:23] LABS: ALBUMIN 2.4 g/dl (3.4-5.0); ANION GAP 10 (8-16); BILIRUBIN,TOTAL 0.3 mg/dL (0.2-1.0); BLOOD UREA NITROGEN 22 mg/dL (7-18); CHLORIDE 115 mmol/L (98-107); CO2 24 mmol/L (21-32); CREATININE 1.1 mg/dL (0.55-1.02); GLUCOSE,RANDOM 90 mg/dL (74-106); MAGNESIUM 1.5 mg/dL (1.8-2.4); PHOSPHOROUS 1.5 mg/dL (2.5-4.9); POTASSIUM 3.7 mmol/L (3.5-5.1); SGOT/AST 33 U/L (15-37); SGPT/ALT 36 U/L (12-78); SODIUM 149 mmol/L (136-145); TOT PROT 5.2 g/dl (6.4-8.2)
[2017-06-16] MEDS: POTASSIUM CHLORIDE ORAL LIQUID 20 MEQ/15 ML PO SCH (09:23)
[2017-06-16] MEDS: PANTOPRAZOLE SODIUM 40 MG VIAL IVPUSH SCH (09:23)
[2017-06-16] MEDS: MAGNESIUM CL 64 MG TABLET.SA PO SCH (09:23)
[2017-06-16 09:24] LABS: ALK PHOS 132 U/L (45-117)
[2017-06-16] MEDS: CEFTRIAXONE 1 G/50 ML PREMIX 50 ML IVPB SCH (09:24)
[2017-06-16] MEDS: LACTOBACILLUS ACIDOPHILUS 1 EACH TAB (FP) PO SCH (09:25)
[2017-06-16] MEDS: CLOTRIMAZOLE 1% CREAM 15 GM TUBE TP SCH ×2 (09:27→21:09)
[2017-06-16] MEDS ORDERED: MAGNESIUM SULF 50% (8.12 MEQ/2 ML-1 GM VIAL) IVPB ONE (13:09)
--- NOTE | 2017-06-16 13:11 | PN ---
Progress Note (short form) - Note Progress Note: Renal follow up for ZANE/Emergent dialysis pt seen and examined at the bedside awake and alert no acute complaints denies any sob, chest pain, abd pain, N/V/D tolerating oral diet BP stable making urine Vital Signs Temperature 98.6 F 06/16/17 05:36 Pulse Rate 82 06/16/17 05:36 Respiratory Rate 18 06/16/17 05:36 Blood Pressure 130/63 06/16/17 05:36 O2 Sat by Pulse Oximetry (%) 96 06/15/17 21:00 Intake & Output 06/13/17 06/14/17 06/15/17 06/16/17 23:59 23:59 23:59 23:59 Intake Total 3316 1520 2400 300 Output Total 2250 1100 600 Balance 1402 375 1338 300 Weight 77.1 kg 79.5 kg 78.1 kg 76.657 kg awake and alert Dry MM CTA soft NT/ND No LE edema CBC, BMP 06/16/17 07:45 06/16/17 07:45 Laboratory Tests 06/12/17 06/12/17 06/13/17 17:30 23:40 00:01 Serum Osmolality 396 H Lactic Acid 1.3 Calcium Phosphorus Magnesium Albumin Acetaminophen Ethylene Glycol Methyl Alcohol Level DEANDRE Screen c-ANCA Proteinase 3 (PR3) p-ANCA Atypical p-ANCA Myeloperoxidase Ab Tot Complement (CH50) RPR Titer Nonreactive Hep Bs Antigen Hepatitis C Antibody 06/13/17 06/13/17 06/13/17 00:01 00:01 00:01 Serum Osmolality Lactic Acid Calcium 7.8 L Phosphorus Magnesium Albumin Acetaminophen 6.337 L Ethylene Glycol Pending Methyl Alcohol Level DEANDRE Screen c-ANCA Proteinase 3 (PR3) p-ANCA Atypical p-ANCA Myeloperoxidase Ab Tot Complement (CH50) RPR Titer Hep Bs Antigen Hepatitis C Antibody 06/13/17 06/13/17 06/13/17 01:30 01:30 01:30 Serum Osmolality Lactic Acid Calcium Phosphorus Magnesium Albumin Acetaminophen Ethylene Glycol Methyl Alcohol Level Pending DEANDRE Screen Pending c-ANCA Pending Proteinase 3 (PR3) Pending p-ANCA Pending Atypical p-ANCA Pending Myeloperoxidase Ab Pending Tot Complement (CH50) Pending RPR Titer Hep Bs Antigen Pending Hepatitis C Antibody Pending 06/14/17 06/15/17 06/15/17 01:00 05:15 05:15 Serum Osmolality Lactic Acid Calcium 7.4 L 7.7 L Phosphorus 1.9 L Magnesium 1.5 L D Albumin 2.5 L Acetaminophen Ethylene Glycol Methyl Alcohol Level DEANDRE Screen c-ANCA Proteinase 3 (PR3) p-ANCA Atypical p-ANCA Myeloperoxidase Ab Tot Complement (CH50) RPR Titer Hep Bs Antigen Hepatitis C Antibody 06/16/17 07:45 Serum Osmolality Lactic Acid Calcium 8.0 L Phosphorus 1.5 L D Magnesium 1.5 L Albumin 2.4 L Acetaminophen Ethylene Glycol Methyl Alcohol Level DEANDRE Screen c-ANCA Proteinase 3 (PR3) p-ANCA Atypical p-ANCA Myeloperoxidase Ab Tot Complement (CH50) RPR Titer Hep Bs Antigen Hepatitis C Antibody Current Medications Acetaminophen (Ofirmev Injection -) 1,000 mg IVPB Q6H PRN PRN Reason: FEVER Acetylcysteine (Mucomyst 20 Oral / Inh Use Only*) 200 mg NEB QIDR [facility] Last Admin: 06/16/17 12:13 Dose: 200 mg Albuterol Sulfate (Ventolin 0.083% Nebulizer Soln -) 1 amp NEB QIDR [facility] Last Admin: 06/16/17 12:13 Dose: 1 amp Clotrimazole (Lotrimin 1% Cream -) 1 applic TP BID [facility] Last Admin: 06/16/17 09:27 Dose: 1 applic CEFTRIAXONE 1 G/50 ML PREMIX (Ceftriaxone 1 Gm-D5w Bag) 50 mls @ 100 mls/hr IVPB DAILY [facility] Last Admin: 06/16/17 09:24 Dose: 100 mls/hr Potassium Phosphate 30 mm/ (Dextrose) 260 mls @ 62.5 mls/hr IVPB ONCE ONE Stop: 06/16/17 17:17 Dextrose/Sodium Chloride (D5-1/3ns -) 500 mls @ 75 mls/hr IV ASDIR [facility] Lactobacillus Acidophilus (Bacid -) 1 tab PO DAILY [facility] Last Admin: 06/16/17 09:25 Dose: 1 tab Magnesium Chloride (Slow-Mag -) 64 mg PO DAILY [facility] Last Admin: 06/16/17 09:23 Dose: 64 mg Magnesium Sulfate (Magnesium Sulfate) 1 gm IVPB ONCE ONE Stop: 06/16/17 13:10 Pantoprazole Sodium (Protonix Iv) 40 mg IVPUSH DAILY [facility] Last Admin: 06/16/17 09:23 Dose: 40 mg Potassium Phos/Sodium Phos (Phos-Nak Packet -) 1 packet PO TID [facility] Last Admin: 06/16/17 06:24 Dose: Not Given 56 year old woman with PMhx of Hypertension who presented from home with AMS and found to have renal failure and metabolic acidosis. #Acute Renal Failure with encephalopathy and severe metabolic acidosis renal function much improved no need for further dialysis Methenol/Ethylene Gylcol levels negative serologic work up negative thus far continue D5 1/3 NS for now give IV potassium phosphate 30mmol IV as phos < 2 continue oral neutraphos give Mg Sulfate 1g IV trend BUN/cr and electrolytes Bill Oliveros DO
[2017-06-16] MEDS ORDERED: MAGNESIUM 1GM/D5W - 1 GM/100 ML IVPB IVPB ONE (14:00)
[2017-06-16] MEDS ORDERED: POTASSIUM PHOSPHATE 30 MM in DEXTROSE 5%-WATER - 500 ML IVPB ONE (14:30)
[2017-06-16] MEDS: DEXTROSE 5%-1/3 NS - 500 ML IV SCH ×2 (15:01→23:44)
--- NOTE | 2017-06-16 15:19 | PN ---
Progress Note, Physician Chief Complaint: LYING FLAT NO SOB History of Present Illness: RECENTLY IN ICU/EXTUBATED APPEARS STABLE - Current Medication List Current Medications: Active Medications Acetazolamide (Diamox -) 250 mg PO BID [facility] Acetylcysteine (Mucomyst 20 Oral / Inh Use Only*) 200 mg NEB QIDR [facility] Last Admin: 06/16/17 12:13 Dose: 200 mg Albuterol Sulfate (Ventolin 0.083% Nebulizer Soln -) 1 amp NEB QIDR [facility] Last Admin: 06/16/17 12:13 Dose: 1 amp Clotrimazole (Lotrimin 1% Cream -) 1 applic TP BID [facility] Last Admin: 06/16/17 09:27 Dose: 1 applic CEFTRIAXONE 1 G/50 ML PREMIX (Ceftriaxone 1 Gm-D5w Bag) 50 mls @ 100 mls/hr IVPB DAILY [facility] Last Admin: 06/16/17 09:24 Dose: 100 mls/hr Potassium Phosphate 30 mm/ (Dextrose) 510 mls @ 63.75 mls/hr IVPB ONCE ONE Stop: 06/16/17 22:29 Last Admin: 06/16/17 14:59 Dose: 63.75 mls/hr Dextrose/Sodium Chloride (D5-1/3ns -) 500 mls @ 75 mls/hr IV ASDIR [facility] Last Admin: 06/16/17 15:01 Dose: 75 mls/hr Lactobacillus Acidophilus (Bacid -) 1 tab PO DAILY [facility] Last Admin: 06/16/17 09:25 Dose: 1 tab Magnesium Chloride (Slow-Mag -) 64 mg PO DAILY [facility] Last Admin: 06/16/17 09:23 Dose: 64 mg Pantoprazole Sodium (Protonix Iv) 40 mg IVPUSH DAILY [facility] Last Admin: 06/16/17 09:23 Dose: 40 mg Potassium Phos/Sodium Phos (Phos-Nak Packet -) 1 packet PO TID [facility] Last Admin: 06/16/17 15:11 Dose: 1 packet - Objective Vital Signs: Vital Signs Temperature 97.8 F 06/16/17 14:59 Pulse Rate 85 06/16/17 14:59 Respiratory Rate 18 06/16/17 14:59 Blood Pressure 138/80 06/16/17 14:59 O2 Sat by Pulse Oximetry (%) 94 L 06/16/17 09:00 Constitutional: Yes: Pallor Eyes: Yes: Conjunctiva Clear HENT: Yes: Normocephalic Neck: Yes: Trachea Midline Cardiovascular: Yes: Regular Rate and Rhythm, S1, S2 Respiratory: Yes: CTA Bilaterally Gastrointestinal: Yes: Normal Bowel Sounds Edema: No Neurological: Yes: Alert Labs: CBC, BMP 06/16/17 07:45 06/16/17 07:45 INR, PTT INR 1.39 (0.82-1.09) H 06/13/17 07:50 - ....Imaging Chest X-ray: Report Reviewed, Image Reviewed Cat Scan: Report Reviewed Problem List - Problems (1) Acute hypoxemic respiratory failure Code(s): J96.01 - ACUTE RESPIRATORY FAILURE WITH HYPOXIA (2) GI bleed Code(s): K92.2 - GASTROINTESTINAL HEMORRHAGE, UNSPECIFIED Qualifiers: GI bleed type/associated pathology: unspecified gastrointestinal hemorrhage type Qualified Code(s): K92.2 - Gastrointestinal hemorrhage, unspecified (3) Renal failure Code(s): N19 - UNSPECIFIED KIDNEY FAILURE Qualifiers: Renal failure chronicity: acute Acute renal failure type: unspecified Qualified Code(s): N17.9 - Acute kidney failure, unspecified (4) Sepsis Code(s): A41.9 - SEPSIS, UNSPECIFIED ORGANISM Qualifiers: Sepsis type: sepsis due to unspecified organism Qualified Code(s): A41.9 - Sepsis, unspecified organism (5) UTI (urinary tract infection) Code(s): N39.0 - URINARY TRACT INFECTION, SITE NOT SPECIFIED Qualifiers: Urinary tract infection type: site unspecified Hematuria presence: without hematuria Qualified Code(s): N39.0 - Urinary tract infection, site not specified Assessment/Plan Acute Respiratory Failure resolved s/p extubation Acute Kidney Injury requiring emergent HD Uremic Encephalopathy improving Severe Metabolic Acidosis resolving r/o UTI HTN - continue IVF - monitor urine output, creatinine - replete lytes - complete empiric antibiotics - O2 to keep SpO2 >90% - DVT/GI prophylaxis Carlyle STAPLETON MD
--- NOTE | 2017-06-16 17:50 | PN ---
Teaching Attending Note Name of Resident: Noah Alcazar ATTENDING PHYSICIAN STATEMENT I saw and evaluated the patient. I reviewed the resident's note and discussed the case with the resident. I agree with the resident's findings and plan as documented. SUBJECTIVE: Patient is feeling better with no acute distress. OBJECTIVE: Vital Signs Temperature 97.8 F 06/16/17 14:59 Pulse Rate 85 06/16/17 14:59 Respiratory Rate 18 06/16/17 14:59 Blood Pressure 138/80 06/16/17 14:59 O2 Sat by Pulse Oximetry (%) 94 L 06/16/17 09:00 CBCD WBC 16.4 K/mm3 (4.0-10.0) H 06/16/17 07:45 RBC 3.30 M/mm3 (3.60-5.2) L 06/16/17 07:45 Hgb 9.3 GM/dL (10.7-15.3) L 06/16/17 07:45 Hct 29.0 % (32.4-45.2) L 06/16/17 07:45 MCV 87.8 fl (80-96) 06/16/17 07:45 MCHC 32.0 g/dl (32.0-36.0) 06/16/17 07:45 RDW 14.1 % (11.6-15.6) 06/16/17 07:45 Plt Count 106 K/MM3 (134-434) L 06/16/17 07:45 MPV 11.8 fl (7.5-11.1) H 06/16/17 07:45 CMP Sodium 149 mmol/L (136-145) H 06/16/17 07:45 Potassium 3.7 mmol/L (3.5-5.1) 06/16/17 07:45 Chloride 115 mmol/L (98-107) H 06/16/17 07:45 Carbon Dioxide 24 mmol/L (21-32) 06/16/17 07:45 Anion Gap 10 (8-16) 06/16/17 07:45 BUN 22 mg/dL (7-18) H 06/16/17 07:45 Creatinine 1.1 mg/dL (0.55-1.02) H 06/16/17 07:45 Creat Clearance w eGFR 51.57 (>60) 01/17/18 07:45 Random Glucose 90 mg/dL (74-106) 06/16/17 07:45 Calcium 8.0 mg/dL (8.5-10.1) L 06/16/17 07:45 Total Bilirubin 0.3 mg/dL (0.2-1.0) D 06/16/17 07:45 AST 33 U/L (15-37) D 06/16/17 07:45 ALT 36 U/L (12-78) D 06/16/17 07:45 Alkaline Phosphatase 132 U/L (45-117) H D 06/16/17 07:45 Total Protein 5.2 g/dl (6.4-8.2) L 06/16/17 07:45 Albumin 2.4 g/dl (3.4-5.0) L 06/16/17 07:45 CARDIAC ENZYMES Creatine Kinase 263 IU/L (26-192) H 06/12/17 17:30 Troponin I < 0.02 ng/ml (0.00-0.05) 06/12/17 17:30 Current Medications Generic Name Dose Route Start Last Admin Trade Name Freq PRN Reason Stop Dose Admin Acetazolamide 250 mg 06/16/17 22:00 Diamox - PO BID JAVI Acetylcysteine 200 mg 06/15/17 18:00 06/16/17 12:13 Mucomyst 20 Oral / Inh Use Only* NEB 200 mg QIDR JAVI Administration Albuterol Sulfate 1 amp 06/15/17 18:00 06/16/17 12:13 Ventolin 0.083% Nebulizer Soln - NEB 1 amp QIDR JAVI Administration Clotrimazole 1 applic 06/15/17 22:00 06/16/17 09:27 Lotrimin 1% Cream - TP 1 applic BID JAVI Administration CEFTRIAXONE 1 G/50 ML PREMIX 50 mls @ 100 mls/hr 06/16/17 10:00 06/16/17 09: 24 Ceftriaxone 1 Gm-D5w Bag IVPB 100 mls/hr DAILY JAVI Administration Potassium Phosphate 30 mm/ 510 mls @ 63.75 mls/hr 06/16/17 14:30 06/16/17 14: 59 Dextrose IVPB 06/16/17 22:29 63.75 mls/hr ONCE ONE Administration Dextrose/Sodium Chloride 500 mls @ 75 mls/hr 06/16/17 13:15 01/17/18 15:01 D5-1/3ns - IV 75 mls/hr ASDIR JAVI Administration Lactobacillus Acidophilus 1 tab 06/15/17 12:00 06/16/17 09:25 Bacid - PO 1 tab DAILY JAVI Administration Magnesium Chloride 64 mg 06/15/17 11:00 06/16/17 09:23 Slow-Mag - PO 64 mg DAILY JAVI Administration Pantoprazole Sodium 40 mg 06/16/17 10:00 06/16/17 09:23 Protonix Iv IVPUSH 40 mg DAILY JAVI Administration Potassium Phos/Sodium Phos 1 packet 06/15/17 22:00 06/16/17 15:11 Phos-Nak Packet - PO 1 packet TID JAVI Administration Home Medications Medication Instructions Recorded Acetazolamide [Diamox -] 250 mg PO BID 06/15/17 Lisinopril/Hydrochlorothiazide 20 - 25 mg PO TID 06/15/17 [Lisinopril-Hctz 20-25 mg Tab] Microbiology 06/12/17 17:30 Blood - Peripheral Venous Blood Culture - Preliminary NO GROWTH OBTAINED AFTER 96 HOURS, INCUBATION TO CONTINUE FOR 1 DAYS. 06/14/17 13:50 Blood - Peripheral Venous Blood Culture - Preliminary NO GROWTH OBTAINED AFTER 48 HOURS, INCUBATION TO CONTINUE FOR 3 DAYS. 06/14/17 13:50 Blood - Peripheral Venous Blood Culture - Preliminary NO GROWTH OBTAINED AFTER 48 HOURS, INCUBATION TO CONTINUE FOR 3 DAYS. 06/12/17 17:30 Blood - Peripheral Venous Blood Culture - Preliminary Staphylococcus Epidermidis 06/12/17 17:30 Urine - Urine - Catheterized Urine Culture - Final NO GROWTH OBTAINED 06/13/17 00:01 Nasopharyngeal Swab Influenza Types A,B Antigen (NINI) - Final 06/13/17 00:01 Nasopharyngeal Swab - Final PE: as per resident's note ASSESSMENT AND PLAN: Patient is a 56 y/o female with Hx of HTN who presented with AMS and was found to have ZANE , s/p intubation and HD . # ZANE improved post HD x2 , presented with severe metabolic acidosis as well s/ p emergency HD. improved with unknown etiology # Severe sepsis :due to UTI , culture is negative continue ceftriaxone blood cx with one set positive for coag Neg staph. repeat blood cx. likely contamination. , no vanco for now # Acute Hypernatremia due to dehydration , cont 1/2 NS SCds , heparin sq.
[2017-06-16] MEDS: acetaZOLAMIDE 250 MG TABLET PO SCH (21:08)
[2017-06-17] MEDS: ACETYLCYSTEINE 20% 200MG/ML 4 ML VIAL *FOR ORAL / INH USE ONLY NEB SCH ×4 (00:20→15:40)
[2017-06-17] MEDS: ALBUTEROL SO4 0.083% IH SOL 2.5 MG/3 ML VIAL.NEB. NEB SCH ×4 (00:20→15:40)
[2017-06-17] MEDS ORDERED: PT OWN MED DRAWER 7, Y5N ONE (01:59)
[2017-06-17] MEDS: NAPH,MB-DB/K PH,MBDB POWDER PACKET PO SCH ×2 (05:56→13:59)
[2017-06-17] MEDS: DEXTROSE 5%-1/3 NS - 500 ML IV SCH (06:13)
[2017-06-17 08:46] LABS: BASO % 0.4 % (0-2.0); EOS % 1.7 % (0-4.5); HEMATOCRIT 28.4 % (32.4-45.2); HEMOGLOBIN 8.8 GM/dL (10.7-15.3); LYMPH % 19.2 % (8-40); MCH 27.6 pg (25.7-33.7); MCHC 31.1 g/dl (32.0-36.0); MEAN CELL VOLUME 88.9 fl (80-96); MEAN PLT VOLUME 11.2 fl (7.5-11.1); MONO % 9.7 % (3.8-10.2); PLATELET COUNT 125 K/MM3 (134-434); RBC 3.19 M/mm3 (3.60-5.2); RDW 14.4 % (11.6-15.6); WHITE BLOOD COUNT 15.7 K/mm3 (4.0-10.0)
[2017-06-17 09:16] LABS: ANION GAP 7 (8-16); BLOOD UREA NITROGEN 11 mg/dL (7-18); CALCIUM 7.5 mg/dL (8.5-10.1); CHLORIDE 113 mmol/L (98-107); CO2 25 mmol/L (21-32); CREATININE 0.9 mg/dL (0.55-1.02); GLUCOSE,RANDOM 101 mg/dL (74-106); MAGNESIUM 1.3 mg/dL (1.8-2.4); POTASSIUM 3.9 mmol/L (3.5-5.1); SODIUM 145 mmol/L (136-145)
[2017-06-17] MEDS: CEFTRIAXONE 1 G/50 ML PREMIX 50 ML IVPB SCH (10:19)
[2017-06-17] MEDS: acetaZOLAMIDE 250 MG TABLET PO SCH (10:20)
[2017-06-17] MEDS: LACTOBACILLUS ACIDOPHILUS 1 EACH TAB (FP) PO SCH (10:20)
[2017-06-17] MEDS: CLOTRIMAZOLE 1% CREAM 15 GM TUBE TP SCH (10:20)
[2017-06-17] MEDS: MAGNESIUM CL 64 MG TABLET.SA PO SCH (10:21)
[2017-06-17] MEDS: PANTOPRAZOLE SODIUM 40 MG VIAL IVPUSH SCH (10:21)
--- NOTE | 2017-06-17 11:21 | PN ---
Progress Note (short form) - Note Progress Note: Resting in NAD. No CP or SOB. Hoarseness of voice improving. Intake & Output 06/14/17 06/15/17 06/16/17 06/17/17 23:59 23:59 23:59 23:59 Intake Total 1520 2400 2780 600 Output Total 1100 600 Balance 420 1800 2780 600 Weight 175 lb 4.28 oz 172 lb 2.896 oz 169 lb 173 lb Last Vital Signs Temp Pulse Resp BP Pulse Ox 97.6 F 95 H 18 116/79 94 L 06/17/17 06:00 06/17/17 06:00 06/17/17 06:00 06/17/17 06:00 06/16/17 09:00 Active Medications Acetazolamide (Diamox -) 250 mg PO BID [facility] Last Admin: 06/17/17 10:20 Dose: 250 mg Acetylcysteine (Mucomyst 20 Oral / Inh Use Only*) 200 mg NEB QIDR [facility] Last Admin: 06/17/17 08:20 Dose: 200 mg Albuterol Sulfate (Ventolin 0.083% Nebulizer Soln -) 1 amp NEB QIDR [facility] Last Admin: 06/17/17 08:20 Dose: 1 amp Clotrimazole (Lotrimin 1% Cream -) 1 applic TP BID [facility] Last Admin: 06/17/17 10:20 Dose: 1 applic CEFTRIAXONE 1 G/50 ML PREMIX (Ceftriaxone 1 Gm-D5w Bag) 50 mls @ 100 mls/hr IVPB DAILY [facility] Last Admin: 06/17/17 10:19 Dose: 100 mls/hr Dextrose/Sodium Chloride (D5-1/3ns -) 500 mls @ 75 mls/hr IV ASDIR [facility] Last Admin: 06/17/17 06:13 Dose: 75 mls/hr Lactobacillus Acidophilus (Bacid -) 1 tab PO DAILY [facility] Last Admin: 06/17/17 10:20 Dose: 1 tab Magnesium Chloride (Slow-Mag -) 64 mg PO DAILY [facility] Last Admin: 06/17/17 10:21 Dose: 64 mg Pantoprazole Sodium (Protonix Iv) 40 mg IVPUSH DAILY [facility] Last Admin: 06/17/17 10:21 Dose: 40 mg Potassium Phos/Sodium Phos (Phos-Nak Packet -) 1 packet PO TID [facility] Last Admin: 06/17/17 05:56 Dose: 1 packet Gen: NAD at rest Heart: RRR Lung: decreased breath sounds at the bases Abd: soft, nontender Ext: no edema Laboratory Results - last 24 hr 06/17/17 06/17/17 08:00 08:00 WBC 15.7 H RBC 3.19 L Hgb 8.8 L Hct 28.4 L MCV 88.9 MCH 27.6 MCHC 31.1 L RDW 14.4 Plt Count 125 L MPV 11.2 H Neutrophils % 69.0 Lymphocytes % 19.2 D Monocytes % 9.7 Eosinophils % 1.7 D Basophils % 0.4 Sodium 145 Potassium 3.9 Chloride 113 H Carbon Dioxide 25 Anion Gap 7 L BUN 11 Creatinine 0.9 Random Glucose 101 Calcium 7.5 L Phosphorus 3.0 Magnesium 1.3 L ASSESSMENT AND PLAN: Acute Respiratory Failure Acute Kidney Injury requiring emergent HD Uremic Encephalopathy improving Severe Metabolic Acidosis resolving r/o UTI HTN - IVF - Monitor urine output, creatinine - Replete lytes - Complete empiric antibiotics - O2 to keep SpO2 >90% - DVT/GI prophylaxis Dr Slater
[2017-06-17 14:30] VITALS: BP 129/69; PULSE 78; TEMP 98.5
--- NOTE | 2017-06-17 16:20 | PN ---
Progress Note (short form) - Note Progress Note: Renal follow up for ZANE/Emergent dialysis pt seen and examined at the bedside no acute complaints Vital Signs Temperature 98.5 F 06/17/17 14:00 Pulse Rate 78 06/17/17 14:00 Respiratory Rate 20 06/17/17 14:00 Blood Pressure 129/69 06/17/17 14:00 O2 Sat by Pulse Oximetry (%) 94 L 06/16/17 09:00 Intake & Output 06/14/17 06/15/17 06/16/17 06/17/17 23:59 23:59 23:59 23:59 Intake Total 1520 2400 2780 850 Output Total 1100 600 Balance 420 1800 2780 850 Weight 79.5 kg 78.1 kg 76.657 kg 78.471 kg awake and alert Dry MM CTA soft NT/ND No LE edema CBC, BMP 06/17/17 08:00 06/17/17 08:00 Current Medications Acetazolamide (Diamox -) 250 mg PO BID [facility] Last Admin: 06/17/17 10:20 Dose: 250 mg Acetylcysteine (Mucomyst 20 Oral / Inh Use Only*) 200 mg NEB QIDR [facility] Last Admin: 06/17/17 08:20 Dose: 200 mg Albuterol Sulfate (Ventolin 0.083% Nebulizer Soln -) 1 amp NEB QIDR [facility] Last Admin: 06/17/17 08:20 Dose: 1 amp Clotrimazole (Lotrimin 1% Cream -) 1 applic TP BID [facility] Last Admin: 06/17/17 10:20 Dose: 1 applic CEFTRIAXONE 1 G/50 ML PREMIX (Ceftriaxone 1 Gm-D5w Bag) 50 mls @ 100 mls/hr IVPB DAILY [facility] Last Admin: 06/17/17 10:19 Dose: 100 mls/hr Dextrose/Sodium Chloride (D5-1/3ns -) 500 mls @ 75 mls/hr IV ASDIR [facility] Last Admin: 06/17/17 06:13 Dose: 75 mls/hr Lactobacillus Acidophilus (Bacid -) 1 tab PO DAILY [facility] Last Admin: 06/17/17 10:20 Dose: 1 tab Magnesium Chloride (Slow-Mag -) 64 mg PO DAILY [facility] Last Admin: 06/17/17 10:21 Dose: 64 mg Pantoprazole Sodium (Protonix Iv) 40 mg IVPUSH DAILY [facility] Last Admin: 06/17/17 10:21 Dose: 40 mg Potassium Phos/Sodium Phos (Phos-Nak Packet -) 1 packet PO TID [facility] Last Admin: 06/17/17 13:59 Dose: 1 packet 56 year old woman with PMhx of Hypertension who presented from home with AMS and found to have renal failure and metabolic acidosis. #Acute Renal Failure with encephalopathy and severe metabolic acidosis Renal function improved to baseline stable for discharge advised to resume all home meds on discharge avoidance of nsaids stressed advised to maintain good oral intake follow up in office in 1-2 weeks Bill Oliveros DO
--- NOTE | 2017-06-17 17:18 | PN ---
Teaching Attending Note Name of Resident: Noah Alcazar ATTENDING PHYSICIAN STATEMENT I saw and evaluated the patient. I reviewed the resident's note and discussed the case with the resident. I agree with the resident's findings and plan as documented. SUBJECTIVE: Patient is comfortable with no acute distress. OBJECTIVE: Vital Signs Temperature 98.5 F 06/17/17 14:00 Pulse Rate 78 06/17/17 14:00 Respiratory Rate 20 06/17/17 14:00 Blood Pressure 129/69 06/17/17 14:00 O2 Sat by Pulse Oximetry (%) 94 L 06/16/17 09:00 CBCD WBC 15.7 K/mm3 (4.0-10.0) H 06/17/17 08:00 RBC 3.19 M/mm3 (3.60-5.2) L 06/17/17 08:00 Hgb 8.8 GM/dL (10.7-15.3) L 06/17/17 08:00 Hct 28.4 % (32.4-45.2) L 06/17/17 08:00 MCV 88.9 fl (80-96) 06/17/17 08:00 MCHC 31.1 g/dl (32.0-36.0) L 06/17/17 08:00 RDW 14.4 % (11.6-15.6) 06/17/17 08:00 Plt Count 125 K/MM3 (134-434) L 06/17/17 08:00 MPV 11.2 fl (7.5-11.1) H 06/17/17 08:00 CMP Sodium 145 mmol/L (136-145) 06/17/17 08:00 Potassium 3.9 mmol/L (3.5-5.1) 06/17/17 08:00 Chloride 113 mmol/L (98-107) H 06/17/17 08:00 Carbon Dioxide 25 mmol/L (21-32) 06/17/17 08:00 Anion Gap 7 (8-16) L 06/17/17 08:00 BUN 11 mg/dL (7-18) 06/17/17 08:00 Creatinine 0.9 mg/dL (0.55-1.02) 06/17/17 08:00 Creat Clearance w eGFR 51.57 (>60) 06/16/17 07:45 Random Glucose 101 mg/dL (74-106) 06/17/17 08:00 Calcium 7.5 mg/dL (8.5-10.1) L 06/17/17 08:00 Total Bilirubin 0.3 mg/dL (0.2-1.0) D 06/16/17 07:45 AST 33 U/L (15-37) D 06/16/17 07:45 ALT 36 U/L (12-78) D 06/16/17 07:45 Alkaline Phosphatase 132 U/L (45-117) H D 06/16/17 07:45 Total Protein 5.2 g/dl (6.4-8.2) L 06/16/17 07:45 Albumin 2.4 g/dl (3.4-5.0) L 06/16/17 07:45 CARDIAC ENZYMES Creatine Kinase 263 IU/L (26-192) H 06/12/17 17:30 Troponin I < 0.02 ng/ml (0.00-0.05) 06/12/17 17:30 Home Medications Medication Instructions Recorded Acetazolamide [Diamox -] 250 mg PO BID 06/15/17 Lisinopril/Hydrochlorothiazide 20 - 25 mg PO TID 06/15/17 [Lisinopril-Hctz 20-25 mg Tab] PE: as per resident's note ASSESSMENT AND PLAN: Patient is a 56 y/o female with Hx of HTN who presented with AMS and was found to have ZANE , s/p intubation and HD . Patient is feeling better , would like to go home. # ZANE improved post HD x2 , s/p emergency HD. Kidney function improved completely # s/p severe sepsis :due to UTI , completed IV antibiotic , culture is negative so far . blood cx with one set positive for coag Neg staph. repeat blood cx. likely contamination, no further antibiotic is given. # Acute Hypernatremia s/p IVF improved SCds , heparin sq.
--- NOTE | 2017-06-17 19:37 | DS ---
Physical Exam: SUBJECTIVE: Patient seen and examined at bedside. Patient denies any current complaints. She states that she is at her baseline. OBJECTIVE: Vital Signs Period Temp Pulse Resp BP Sys/Garnica Pulse Ox Last 24 Hr 97.3 F-98.5 F 69-95 18-20 112-136/67-79 PHYSICAL EXAM GENERAL: The patient is awake, alert, and oriented x3. No distress. HEAD: Normal with no signs of trauma. EYES: PERRL, extraocular movements intact, sclera anicteric, conjunctiva clear. No ptosis. ENT: Ears normal, nares patent, dry mucous membranes. NECK: Trachea midline, full range of motion, supple. LUNGS: Breath sounds equal, clear to auscultation HEART: Regular rate and rhythm, S1, S2 without murmur, rub or gallop. ABDOMEN: Soft, nontender, nondistended, normoactive bowel sounds, no guarding, no rebound, no hepatosplenomegaly, no masses. EXTREMITIES: 2+ pulses, warm, well-perfused, no edema. NEUROLOGICAL: Cranial nerves II through XII grossly intact SKIN: Warm, dry, normal turgor, no rashes or lesions noted LABS Laboratory Results - last 24 hr 06/17/17 06/17/17 08:00 08:00 WBC 15.7 H RBC 3.19 L Hgb 8.8 L Hct 28.4 L MCV 88.9 MCH 27.6 MCHC 31.1 L RDW 14.4 Plt Count 125 L MPV 11.2 H Neutrophils % 69.0 Lymphocytes % 19.2 D Monocytes % 9.7 Eosinophils % 1.7 D Basophils % 0.4 Sodium 145 Potassium 3.9 Chloride 113 H Carbon Dioxide 25 Anion Gap 7 L BUN 11 Creatinine 0.9 Random Glucose 101 Calcium 7.5 L Phosphorus 3.0 Magnesium 1.3 L HOSPITAL COURSE: Date of Admission:06/12/17 56 year old female with a hx of htn and smoking was brought to the emergency room and noted to have dried blood around her mouth. Patient was tachycardic, hypoxic, and hypotensive. She was intubated and transferred to the ICU for management. Patient was found to be in acute renal failure with metabolic encephalopathy and sepsis secondary to UTI and severe electrolyte abnormalities. Patient was placed on antibiotics for the UTI, kept on pressors to maintain her blood pressure, and needed to undergo 2 emergent rounds of dialysis. She additionally received 1U of PRBCs. After dialysis, patient clinically began improving, was able to be extubated and transferred to the floors off of pressors. She continued to improve, her electrolytes stabilized. She was discharged home on 06/17/17. Date of Discharge: 06/17/17 Minutes to complete discharge: 35 Discharge Summary Reason For Visit: GASTROINTETINAL HEMORRHAGE RENAL FAILURE Condition: Stable - Instructions Diet, Activity, Other Instructions: You were admitted to the hospital for the treatment of acute kidney failure and sepsis likely due to a urinary tract infection. During your hospitalization, you were treated with medications to maintain your blood pressure and you needed to be intubated to maintain your airway. Additionally, you needed to have 2 emergency dialysis sessions to clean your blood while your kidneys were injured. Your kidney function significantly improved back to normal during your hospitalization, and your electrolyte levels have stabilized. You informed us that you were previously diagnosed with a pituitary adenoma. Please follow with your home doctor to discuss management. You were treated in the hospital with IV antibiotics. Medical Recommendations: -You do not need to take antibiotics any more as an outpatient -Make sure to continue your home acetazolamide and HTCZ/lisinopril as before. Please make sure not to miss your doses. -Make sure to drink plenty of water to help your maintain your kidney health. Referrals -Please make sure to follow with your primary care physician within 1 week of discharge to check your kidney function and electrolyte levels. -Make an appointment with the kidney specialist, Dr. Oliveros within 2 weeks of discharge. If you experience high fevers, chills, chest pain, nausea/vomiting, fatigue, or confusion, please return to the emergency room immediately. Referrals: Bill Oliveros MD [Staff Physician] - 2 Weeks Disposition: HOME - Home Medications Comprehensive Discharge Medication List: Ambulatory Orders Acetazolamide [Diamox -] 250 mg PO BID 06/15/17 Lisinopril/Hydrochlorothiazide [Lisinopril-Hctz 20-25 mg Tab] 20 - 25 mg PO TID 06/15/17 This patient is new to me today: No Emergency Visit: No Critical Care patient: No - Discharge Referral Referred to [facility] No
== END 2017-06-17 16:55 | disposition home or self-care (01) | DRG 720 ==
LOC: JER 16:50 → JERBED 20:40 → JICU 22:47 → J6S 06-15 21:13
PROVIDERS: ADMIT Internal Medicine; ATTEND Internal Medicine
PROC: 5A1945Z Respiratory Ventilation, 24-96 Consecutive Hours (ICD-10-PCS; principal; 2017-06-12)
PROC: 0BH17EZ Insertion of Endotracheal Airway into Trachea, Via Natural or Artificial Opening (ICD-10-PCS; 2017-06-12)
PROC: 30233N1 Transfusion of Nonautologous Red Blood Cells into Peripheral Vein, Percutaneous Approach (ICD-10-PCS; 2017-06-12)
PROC: 05HM33Z Insertion of Infusion Device into Right Internal Jugular Vein, Percutaneous Approach (ICD-10-PCS; 2017-06-13)
DX: A41.9 Sepsis, unspecified organism (principal); K92.2 Gastrointestinal hemorrhage, unspecified; N17.9 Acute kidney failure, unspecified; J96.01 Acute respiratory failure with hypoxia; N39.0 Urinary tract infection, site not specified; G93.41 Metabolic encephalopathy; E87.0 Hyperosmolality and hypernatremia; I10 Essential (primary) hypertension; E86.0 Dehydration; E87.2 Acidosis; R65.20 Severe sepsis without septic shock; D72.829 Elevated white blood cell count, unspecified; I95.9 Hypotension, unspecified; D30.02 Benign neoplasm of left kidney
CPT/HCPCS: 36415; 36430; 36511; 36600; 70450-TC; 71045-TC-FY; 74176-TC; 80048; 80053; 80076; 80307; 81003; 81015; 82040; 82436; 82550; 82553; 82570; 82607; 82693; 82803; 82962; 83520; 83605; 83735; 83930; 83935; 84100; 84133; 84156; 84300; 84439; 84443; 84481; 84484; 85025; 85027; 85610; 85730; 86038; 86162; 86256; 86593; 86704; 86705; 86706; 86708; 86803; 86850; 86900; 86901; 86922; 87040; 87086; 87186; 87340; 87804; 93005; 93010; 94002; 94640; 97116-GP; 97161-GP; 99285-25; J0131; J7030; P9038; P9058

== ENCOUNTER 2020-11-20 21:25 | Emergency (ER) | payer OTHER ==
[2020-11-20 21:38] VITALS: BP 107/76; PULSE 74; TEMP 98.3; BMI 31.3
[2020-11-20] MEDS ORDERED: DEXAMETHASONE SOD PHOSPHATE 10 MG/1 ML VIAL PO ONE (23:18)
[2020-11-20] MEDS ORDERED: ACETAMINOPHEN 500 MG TABLET (FP) PO ONE (23:18)
[2020-11-20] MEDS ORDERED: ACETAMINOPHEN 325 MG TABLET (FP) ONE (23:27)
[2020-11-20] MEDS ORDERED: DEXAMETHASONE SOD PHOSPHATE 10 MG/1 ML VIAL ONE (23:27)
[2020-11-21] MEDS ORDERED: LIDOCAINE 5% TOPICAL PATCH TP ONE (01:39)
[2020-11-21] MEDS ORDERED: LIDOCAINE 5% TOPICAL PATCH ONE (01:47)
[2020-11-21] MEDS ORDERED: LIDOCAINE PATCH REMOVAL MC SCH (22:00)
== END 2020-11-21 02:00 | disposition home or self-care (01) ==
LOC: JER 21:25
DX: M25.551 Pain in right hip (principal); M79.651 Pain in right thigh
CPT/HCPCS: 73523-TC-FY; 93971-TC; 99284-25; J1100

== ENCOUNTER 2020-12-06 15:55 | Emergency (ER) | payer OTHER ==
[2020-12-06 16:06] VITALS: BP 131/84; PULSE 89; TEMP 98.2; BMI 30.4
[2020-12-06] MEDS ORDERED: FLUORESCEIN NA 1 EA STRIP OS ONE (16:34)
[2020-12-06] MEDS ORDERED: TETRACAINE 0.5% OPHTH SOLN 2 ML BOTTLE OS ONE (16:34)
[2020-12-06] MEDS ORDERED: FLUORESCEIN NA 1 EA STRIP ONE (16:36)
[2020-12-06] MEDS ORDERED: TETRACAINE 0.5% OPHTH SOLN 2 ML BOTTLE ONE (16:36)
== END 2020-12-06 17:46 | disposition home or self-care (01) ==
LOC: JERFT 15:55
DX: S05.02XA Injury of conjunctiva and corneal abrasion without foreign body, left eye, initial encounter (principal)
CPT/HCPCS: 99283-25

== ENCOUNTER 2020-12-10 17:37 | Emergency (ER) | payer OTHER ==
[2020-12-10 17:44] VITALS: BP 134/83; PULSE 80; TEMP 98; BMI 30.4
[2020-12-10] MEDS ORDERED: IBUPROFEN 600 MG TABLET (FP) PO ONE ×2 (18:15→18:17)
== END 2020-12-10 18:10 | disposition home or self-care (01) ==
LOC: JER 17:37
DX: K04.7 Periapical abscess without sinus (principal)
CPT/HCPCS: 99283-25

== ENCOUNTER 2020-12-27 04:27 | Day surgery (SDC) | payer OTHER ==
[2020-12-25 16:09] VITALS: BMI 30.4
[2020-12-27] MEDS ORDERED: LIDOCAINE HCL/PF 1% SDV 5ML VIAL ONE (07:23)
[2020-12-27] MEDS ORDERED: TRIAMCINOLONE ACET 40MG/1ML VIAL ONE (07:23)
[2020-12-27] MEDS ORDERED: BUPIVACAINE HCL/PF 0.5% (5MG/ML) 10 ML VIAL ONE (07:24)
[2020-12-27] MEDS ORDERED: LIDOCAINE HCL 1% PRESERVATIVE FREE - 30ML VIAL INF ONE (10:36)
[2020-12-27] MEDS ORDERED: IOHEXOL 180 MG/1 ML ML IJ ONE (10:37)
[2020-12-27] MEDS ORDERED: TRIAMCINOLONE ACET 40MG/1ML VIAL IM ONE (10:38)
[2020-12-27] MEDS ORDERED: BUPIVACAINE HCL/PF 0.5% (5MG/ML) 10 ML VIAL IJ ONE (10:40)
[2020-12-27 11:36] VITALS: BP 120/56; PULSE 60; TEMP 98.3
== END 2020-12-27 11:20 | disposition home or self-care (01) ==
LOC: JASU-SURG 04:27
PROVIDERS: ATTEND Pain Medicine Pain Medicine
PROC: 3E0U3BZ Introduction of Anesthetic Agent into Joints, Percutaneous Approach (ICD-10-PCS; 2020-12-27)
PROC: 3E0U33Z Introduction of Anti-inflammatory into Joints, Percutaneous Approach (ICD-10-PCS; principal; 2020-12-27 08:45)
DX: M53.3 Sacrococcygeal disorders, not elsewhere classified (principal)
CPT/HCPCS: 76000-TC-FY

== ENCOUNTER 2022-10-12 11:28 | Emergency (ER) | payer OTHER ==
[2022-10-12 11:50] VITALS: BP 125/81; PULSE 88; RESP 18; TEMP 98; BMI 31.3
== END 2022-10-12 13:29 | disposition home or self-care (01) ==
LOC: JERFT 11:28
PROC: 0H91XZZ Drainage of Face Skin, External Approach (ICD-10-PCS; principal; 2022-10-12)
DX: R22.0 Localized swelling, mass and lump, head (principal); K08.89 Other specified disorders of teeth and supporting structures; K02.9 Dental caries, unspecified; K04.7 Periapical abscess without sinus
CPT/HCPCS: 99283-25

== ENCOUNTER 2023-02-04 09:15 | Emergency (ER) | payer OTHER ==
[2023-02-04 10:00] VITALS: BP 149/93; PULSE 83; RESP 18; TEMP 98.2; BMI 31.3
[2023-02-04] MEDS ORDERED: IBUPROFEN 600 MG TABLET (FP) PO ONE ×2 (10:11→10:54)
[2023-02-04] MEDS ORDERED: CLINDAMYCIN HCL 150 MG CAPSULE (FP) PO ONE (10:30)
[2023-02-04] MEDS ORDERED: CLINDAMYCIN HCL 150 MG CAPSULE (FP) ONE (10:54)
== END 2023-02-04 11:58 | disposition home or self-care (01) ==
LOC: JERFT 09:15 → JER 09:15 → JERFT 11:58
DX: M79.672 Pain in left foot (principal); L03.116 Cellulitis of left lower limb; R22.42 Localized swelling, mass and lump, left lower limb; L53.9 Erythematous condition, unspecified
CPT/HCPCS: 73630-TC-LT; 99283-25

== ENCOUNTER 2023-04-05 07:10 | Emergency (ER) | payer OTHER ==
[2023-04-05 07:21] VITALS: BMI 31.3
[2023-04-05] MEDS ORDERED: AMOX TR/POT CLAV 875MG/125MG TABLETS (FP) PO ONE (07:36)
[2023-04-05] MEDS ORDERED: IBUPROFEN 600 MG TABLET (FP) PO ONE ×2 (07:36→08:23)
[2023-04-05] MEDS ORDERED: AMOX TR/POT CLAV 875MG/125MG TABLETS (FP) ONE (08:24)
[2023-04-05 08:42] LABS: BASO % 0.5 % (0-2.0); EOS % 2.2 % (0-4.5); HEMATOCRIT 42.1 % (32.4-45.2); HEMOGLOBIN 14.1 GM/dL (10.7-15.3); LYMPH % 21.8 % (8-40); MCHC 33.5 g/dl (32.0-36.0); MEAN CELL VOLUME 86.6 fl (80-96); MEAN PLT VOLUME 8.5 fl (7.5-11.1); NEUT % 69.5 % (42.8-82.8); PLATELET COUNT 348 10^3/uL (134-434); RBC 4.86 M/mm3 (3.60-5.2); RDW 14.9 % (11.6-15.6); WHITE BLOOD COUNT 12.3 K/mm3 (4.0-10.0)
[2023-04-05 08:58] LABS: POTASSIUM 3.1 mmol/L (3.5-5.1)
[2023-04-05 09:00] LABS: ALBUMIN 3.4 g/dl (3.4-5.0); CALCIUM 8.7 mg/dL (8.5-10.1)
[2023-04-05 09:01] LABS: BLOOD UREA NITROGEN 11.4 mg/dL (7-18)
[2023-04-05 09:05] LABS: BILIRUBIN,TOTAL 0.3 mg/dL (0.2-1)
[2023-04-05 09:06] LABS: TOT PROT 6.9 g/dl (6.4-8.2)
[2023-04-05] MEDS ORDERED: LACTATED RINGERS SOLUTION 1000 ML INFUS.BAG IV ONE (09:45)
[2023-04-05] MEDS ORDERED: POTASSIUM CHLORIDE TABS 20 MEQ TABLET.ER (FP) PO ONE ×2 (10:33→10:40)
[2023-04-05 13:14] VITALS: BP 176/92; PULSE 66; RESP 20; TEMP 98.2
== END 2023-04-05 13:14 | disposition home or self-care (01) ==
LOC: JER 07:10
DX: K04.7 Periapical abscess without sinus (principal); R22.0 Localized swelling, mass and lump, head
CPT/HCPCS: 36415; 70487-TC; 80053; 85025; 99285-25; Q9967

== ENCOUNTER 2023-09-28 19:19 | Emergency (ER) | payer OTHER ==
[2023-09-28 19:24] VITALS: BP 154/90; PULSE 69; RESP 18; TEMP 98.1; BMI 31.3
[2023-09-28] MEDS ORDERED: ACETAMINOPHEN 500 MG TABLET (FP) ONE (20:19)
[2023-09-28] MEDS: ACETAMINOPHEN 500 MG TABLET (FP) PO ONE (20:21)
== END 2023-09-28 21:55 | disposition home or self-care (01) ==
LOC: JERFT 19:19
DX: M79.671 Pain in right foot (principal)
CPT/HCPCS: 93971-TC; 99284-25

== ENCOUNTER 2024-04-04 16:06 | Inpatient (IN) | payer OTHER ==
[2024-04-04] MEDS ORDERED: MAGNESIUM SULFATE IN WATER 2 GM/50 ML IVPB IVPB ONE ×2 (17:11→18:40)
[2024-04-04] MEDS ORDERED: dilTIAZem HCL 125 MG/25 ML - 25 ML VIAL ONE ×2 (17:12→17:46)
[2024-04-04] MEDS: MAGNESIUM SULFATE IN WATER 2 GM/50 ML IVPB IVPB ONE ×2 (17:43→18:41)
[2024-04-04] MEDS: dilTIAZem HCL 50 MG/10 ML - 10 ML VIAL IVPUSH ONE ×4 (17:43→20:53)
[2024-04-04 17:45] LABS: BASO % 0.9 % (0-2.0); EOS % 1.1 % (0-4.5); HEMATOCRIT 39.4 % (32.4-45.2); HEMOGLOBIN 13.2 GM/dL (10.7-15.3); LYMPH % 25.3 % (8-40); MCH 30.3 pg (25.7-33.7); MCHC 33.4 g/dl (32.0-36.0); MEAN CELL VOLUME 90.7 fl (80-96); MEAN PLT VOLUME 9.6 fl (7.5-11.1); MONO % 5.4 % (3.8-10.2); NEUT % 67.3 % (42.8-82.8); PLATELET COUNT 296 10^3/uL (134-434); RBC 4.34 M/mm3 (3.60-5.2); RDW 14.5 % (11.6-15.6); WHITE BLOOD COUNT 11.6 K/mm3 (4.0-10.0)
[2024-04-04 18:00] LABS: INR 1.13 (0.83-1.09); PROTHROMBIN TIME (PATIENT) 12.7 SEC (9.7-13.0)
[2024-04-04 18:02] LABS: ACTIVATED PTT 29.5 SECONDS (25.2-36.5)
[2024-04-04 18:10] LABS: CHLORIDE 107 mmol/L (98-107); SODIUM 145 mmol/L (136-145)
[2024-04-04 18:12] LABS: CALCIUM 8.8 mg/dL (8.5-10.1); POTASSIUM 2.8 mmol/L (3.5-5.1)
[2024-04-04 18:13] LABS: ALBUMIN 3.2 g/dl (3.4-5.0); ANION GAP 11 mmol/L (4-13); BLOOD UREA NITROGEN 12.2 mg/dL (7-18); CO2 27 mmol/L (21-32); GLUCOSE,RANDOM 111 mg/dL (74-106); MAGNESIUM 1.8 mg/dL (1.8-2.4)
[2024-04-04 18:16] LABS: CREATININE 1.2 mg/dL (0.55-1.3); SGOT/AST 109 U/L (15-37); SGPT/ALT 93 U/L (13-61)
[2024-04-04 18:17] LABS: BILIRUBIN,TOTAL 0.4 mg/dL (0.2-1); TOT PROT 6.6 g/dl (6.4-8.2)
[2024-04-04] MEDS ORDERED: dilTIAZem HCL 30 MG TABLET ONE ×2 (18:18→19:31)
[2024-04-04 18:19] LABS: ALK PHOS 228 U/L (45-117)
[2024-04-04] MEDS ORDERED: POTASSIUM CHLORIDE ORAL LIQUID 20 MEQ/15 ML ONE (18:19)
[2024-04-04] MEDS: POTASSIUM CHLORIDE ORAL LIQUID 20 MEQ/15 ML PO ONE (18:26)
[2024-04-04] MEDS: dilTIAZem HCL 30 MG TABLET PO ONE ×3 (18:26→20:53)
[2024-04-04 18:47] LABS: N-TERMINAL BNP 2626.5 pg/ml (5-125)
[2024-04-04] MEDS ORDERED: KCL 10 MEQ IVPB 10 MEQ/100 ML INFUS.BAG IVPB ONE ×3 (19:21→22:44)
[2024-04-04] MEDS: KCL 10 MEQ IVPB 10 MEQ/100 ML INFUS.BAG IVPB SCH (19:40)
[2024-04-04] MEDS: LACTATED RINGERS SOLUTION 1000 ML INFUS.BAG IV ONE ×2 (20:04→21:10)
[2024-04-04] MEDS ORDERED: METOPROLOL TARTRATE 5 MG/5 ML VIAL ONE (20:18)
[2024-04-04] MEDS: METOPROLOL TARTRATE 5 MG/5 ML VIAL IVPUSH ONE ×2 (20:19→20:53)
[2024-04-04] MEDS ORDERED: DIGOXIN 0.5 MG/2 ML AMPUL ONE (20:53)
[2024-04-04] MEDS ORDERED: APIXABAN 5 MG TABLET ONE (20:54)
[2024-04-04] MEDS: DIGOXIN 0.5 MG/2 ML AMPUL IVPUSH ONE (21:05)
[2024-04-04] MEDS: APIXABAN 5 MG TABLET PO ONE (21:10)
[2024-04-05] MEDS ORDERED: hydrOXYzine PAMOATE 25 MG CAPSULE (FP) PO ONE (00:36)
[2024-04-05] MEDS ORDERED: MELATONIN 5 MG TABLETS ONE (00:36)
[2024-04-05] MEDS: hydrOXYzine PAMOATE 25 MG CAPSULE (FP) PO ONE (00:45)
[2024-04-05] MEDS: MELATONIN 5 MG TABLETS PO ONE (00:45)
[2024-04-05 01:08] VITALS: BMI 31.4
[2024-04-05] MEDS: KCL 10 MEQ IVPB 10 MEQ/100 ML INFUS.BAG IVPB SCH (02:00)
[2024-04-05] MEDS: MAGNESIUM SULFATE IN WATER 2 GM/50 ML IVPB IVPB ONE (02:00)
[2024-04-05] MEDS: DIGOXIN 0.5 MG/2 ML AMPUL IVPUSH SCH (02:01)
[2024-04-05] MEDS: POTASSIUM CHLORIDE ORAL LIQUID 20 MEQ/15 ML PO ONE (02:06)
[2024-04-05] MEDS: NICOTINE 14 MG/24 HOURS TOPICAL PATCH TD SCH (02:31)
[2024-04-05 02:56] LABS: POTASSIUM 3.3 mmol/L (3.5-5.1)
[2024-04-05 02:57] LABS: CALCIUM 8.5 mg/dL (8.5-10.1)
[2024-04-05 02:58] LABS: BLOOD UREA NITROGEN 9.1 mg/dL (7-18); MAGNESIUM 2.3 mg/dL (1.8-2.4)
[2024-04-05 08:47] LABS: BASO % 0.3 % (0-2.0); EOS % 0.6 % (0-4.5); HEMATOCRIT 37.6 % (32.4-45.2); HEMOGLOBIN 12.6 GM/dL (10.7-15.3); LYMPH % 20.3 % (8-40); MCH 30.4 pg (25.7-33.7); MCHC 33.6 g/dl (32.0-36.0); MEAN CELL VOLUME 90.6 fl (80-96); MEAN PLT VOLUME 10.1 fl (7.5-11.1); MONO % 4.8 % (3.8-10.2); PLATELET COUNT 288 10^3/uL (134-434); RBC 4.15 M/mm3 (3.60-5.2); RDW 14.5 % (11.6-15.6); WHITE BLOOD COUNT 12.4 K/mm3 (4.0-10.0)
[2024-04-05 08:52] LABS: POTASSIUM 3.9 mmol/L (3.5-5.1)
[2024-04-05 08:57] LABS: ALBUMIN 3.1 g/dl (3.4-5.0); MAGNESIUM 2.6 mg/dL (1.8-2.4)
[2024-04-05 08:58] LABS: BLOOD UREA NITROGEN 8.8 mg/dL (7-18); CALCIUM 9.2 mg/dL (8.5-10.1)
[2024-04-05 09:01] LABS: PHOSPHOROUS 3.4 mg/dL (2.5-4.9)
[2024-04-05 09:02] LABS: TOT PROT 6.3 g/dl (6.4-8.2)
[2024-04-05 09:05] LABS: BILIRUBIN,TOTAL 0.6 mg/dL (0.2-1)
[2024-04-05] MEDS: APIXABAN 5 MG TABLET PO SCH (09:06)
[2024-04-05] MEDS: metoPROLOL SUCCINATE 25 MG TAB.SR.24H (FP) PO SCH (09:06)
[2024-04-05] MEDS: dilTIAZem HCL 25 MG/5 ML - 5 ML VIAL IVPUSH ONE (09:31)
[2024-04-05] MEDS ORDERED: ENOXAPARIN NA (PORCINE) 40 MG/0.4 ML DISP.SYRIN SQ SCH (10:00)
[2024-04-05 12:04] LABS: HEPATITIS B SURFACE AG MATERN NON-REACTIVE (NONREACTIVE)
[2024-04-05] MEDS ORDERED: METOPROLOL TARTRATE 5 MG/5 ML VIAL IVPUSH PRN (16:59)
[2024-04-05] MEDS: NYSTATIN POWDER 100,000 UNITS/GM - 15 GM TOPICAL POWDER TP SCH (22:03)
[2024-04-06] MEDS: amLODIPine BESYLATE 5 MG TABLET (FP) PO ONE (03:09)
[2024-04-06] MEDS: amLODIPine BESYLATE 10 MG TABLET (FP) PO ONE (03:09)
[2024-04-06 07:35] LABS: HEMATOCRIT 37.6 % (32.4-45.2); MCH 29.8 pg (25.7-33.7); MCHC 31.9 g/dl (32.0-36.0); MEAN CELL VOLUME 93.2 fl (80-96); MEAN PLT VOLUME 9.8 fl (7.5-11.1); PLATELET COUNT 268 10^3/uL (134-434); RBC 4.03 M/mm3 (3.60-5.2); RDW 14.7 % (11.6-15.6)
[2024-04-06 07:49] LABS: POTASSIUM 3.2 mmol/L (3.5-5.1)
[2024-04-06 07:51] LABS: BLOOD UREA NITROGEN 9.2 mg/dL (7-18); CALCIUM 8.6 mg/dL (8.5-10.1); MAGNESIUM 1.9 mg/dL (1.8-2.4)
[2024-04-06 07:56] LABS: BILIRUBIN,TOTAL 0.4 mg/dL (0.2-1); CREATININE 0.9 mg/dL (0.55-1.3); PHOSPHOROUS 3.5 mg/dL (2.5-4.9); TOT PROT 6.2 g/dl (6.4-8.2)
[2024-04-06] MEDS ORDERED: LOSARTAN POTASSIUM 25 MG TABLET PO SCH (10:00)
[2024-04-06] MEDS: LOSARTAN POTASSIUM 25 MG TABLET PO SCH (10:05)
[2024-04-06] MEDS: POTASSIUM CHLORIDE ORAL LIQUID 20 MEQ/15 ML PO ONE (12:50)
[2024-04-06 14:01] VITALS: BP 142/108; PULSE 102; RESP 20; TEMP 98.2
[2024-04-06] MEDS: metoPROLOL SUCCINATE 25 MG TAB.SR.24H (FP) PO ONE (14:04)
== END 2024-04-06 16:44 | disposition home or self-care (01) | DRG 201 ==
LOC: JER 16:06 → JERBED 21:58 → J4W 04-05 01:41
PROVIDERS: ADMIT Internal Medicine; ATTEND Internal Medicine
DX: I48.91 Unspecified atrial fibrillation (principal); I10 Essential (primary) hypertension; E87.6 Hypokalemia; R74.01 Elevation of levels of liver transaminase levels; F17.210 Nicotine dependence, cigarettes, uncomplicated
CPT/HCPCS: 0241U-QW; 36415; 71045-TC-FY; 71275-TC; 76705-TC; 80048; 80053; 80061; 83735; 83880; 84100; 84439; 84443; 84484; 85025; 85027; 85610; 85730; 86704; 86709; 87340; 87517; 87522; 93005; 93010; 93306-TC; 93308; 99291; Q9967

== ENCOUNTER 2024-09-21 12:37 | Emergency (ER) | payer OTHER ==
[2024-09-21 12:51] VITALS: BMI 28.1
[2024-09-21] MEDS ORDERED: dilTIAZem HCL 125 MG/25 ML - 25 ML VIAL ONE (14:40)
[2024-09-21] MEDS: dilTIAZem HCL 50 MG/10 ML - 10 ML VIAL IVPUSH ONE (14:52)
[2024-09-21 14:55] LABS: HEMATOCRIT 42.9 % (34.1-44.9); HEMOGLOBIN 13.9 g/dL (11.2-15.7); MCHC 32.4 g/dl (32.2-35.5); MEAN CELL VOLUME 93.9 fl (79.4-94.8); MEAN PLT VOLUME 11.3 fl (9.4-12.3); PLATELET COUNT 259 x10^3/uL (182-369); RDW 16.1 % (12.4-16.4)
[2024-09-21 15:03] LABS: INR 1.48 (0.83-1.09); PROTHROMBIN TIME (PATIENT) 16.3 SEC (9.7-13.0)
[2024-09-21] MEDS: dilTIAZem HCL 30 MG TABLET PO ONE (15:03)
[2024-09-21 15:06] LABS: ACTIVATED PTT 33.8 SECONDS (25.2-36.5)
[2024-09-21] MEDS ORDERED: dilTIAZem HCL 30 MG TABLET ONE (15:07)
[2024-09-21 15:19] LABS: POTASSIUM 3.8 mmol/L (3.5-5.1)
[2024-09-21 15:22] LABS: CALCIUM 9.4 mg/dL (8.5-10.1)
[2024-09-21 15:23] LABS: ALBUMIN 3.6 g/dl (3.4-5.0); BLOOD UREA NITROGEN 22.3 mg/dL (7-18); MAGNESIUM 1.7 mg/dL (1.8-2.4)
[2024-09-21 15:26] LABS: CREATININE 1.1 mg/dL (0.55-1.3)
[2024-09-21 15:27] LABS: BILIRUBIN,TOTAL 0.8 mg/dL (0.2-1); TOT PROT 6.5 g/dl (6.4-8.2)
[2024-09-21 15:32] LABS: HEMATOCRIT 45.5 % (34.1-44.9); HEMOGLOBIN 14.8 g/dL (11.2-15.7); MCHC 32.5 g/dl (32.2-35.5); MEAN CELL VOLUME 93.6 fl (79.4-94.8); MEAN PLT VOLUME 10.9 fl (9.4-12.3); PLATELET COUNT 274 x10^3/uL (182-369)
[2024-09-21 15:40] LABS: INR 1.42 (0.83-1.09); PROTHROMBIN TIME (PATIENT) 15.6 SEC (9.7-13.0)
[2024-09-21 15:43] LABS: ACTIVATED PTT 33.6 SECONDS (25.2-36.5)
[2024-09-21 16:03] LABS: POTASSIUM 3.4 mmol/L (3.5-5.1)
[2024-09-21 16:05] LABS: CALCIUM 9.7 mg/dL (8.5-10.1)
[2024-09-21 16:06] LABS: BLOOD UREA NITROGEN 22.8 mg/dL (7-18); MAGNESIUM 1.8 mg/dL (1.8-2.4)
[2024-09-21 16:09] LABS: CREATININE 1.1 mg/dL (0.55-1.3)
[2024-09-21 16:10] LABS: BILIRUBIN,TOTAL 0.8 mg/dL (0.2-1); TOT PROT 7.3 g/dl (6.4-8.2)
[2024-09-21 17:31] VITALS: BP 110/70; PULSE 90; RESP 16; TEMP 98.6
== END 2024-09-21 18:10 | disposition home or self-care (01) ==
LOC: JER 12:37
PROC: 3E033GC Introduction of Other Therapeutic Substance into Peripheral Vein, Percutaneous Approach (ICD-10-PCS; principal; 2024-09-21)
DX: R00.0 Tachycardia, unspecified (principal)
CPT/HCPCS: 36415; 71046-TC-FY; 80053; 83735; 84439; 84443; 84484; 85027; 85610; 85730; 93005; 93010; 99285-25